=== PATIENT | male | born 1930 | race Caucasian/White ===

== ENCOUNTER → 2016-04-06 | Outpatient (CLI) | payer MEDICARE, OTHER ==
[2016-04-06 12:18] LABS: Uric Acid 6.7 mg/dL (3.5-8.5)
== END | disposition home or self-care (01) ==
LOC: LABWHC1 11:04
PROVIDERS: ATTEND Podiatrist
DX: M10.9 Gout, unspecified (principal)
CPT/HCPCS: 36415; 82565; 84450; 84460; 84520; 84550

== ENCOUNTER 2016-04-07 18:21 | Emergency (ER) | payer MEDICARE, OTHER ==
[2016-04-07] MEDS ORDERED: SODIUM CHLORIDE 0.9% 1,000 ML IV SCH (19:15)
--- NOTE | 2016-04-07 19:26 | ED ---
General Adult HPI - General Chief complaint: Weakness Stated complaint: WYATT, Malaise Time Seen by Provider: 04/07/16 18:56 Source: patient Mode of arrival: EMS Limitations: no limitations - History of Present Illness Initial comments: This is an 85-year-old male with a history of CAD, prostate cancer, and atrial fibrillation presents here department for generalized weakness, sleepiness, cough, and intermittent chest pain and abdominal pain. Per the family member at bedside who experienced the patient, he has been more somnolent today and she is not been able to get him up and moving around as much is normal. She states that he has been coughing a little bit of mucus up today. He complained of little bit of intermittent chest pain and abdominal discomfort. She states that he also vomited up some clear phlegm. He denies any abdominal pain, chest pain, shortness of breath currently. The patient does not wear any oxygen at home. He denies any diarrhea. He does admit to some bilateral lower extremity pain however this is chronic for him. No lower extremity swelling. No fevers or chills. No other complaints. - Related Data Home Medications Medication Instructions Recorded Confirmed Albuterol Inhaler [Ventolin Hfa 1 - 2 puff INHALATION RT-Q6H PRN 11/12/15 Inhaler] Albuterol Nebulized [Ventolin 2.5 mg INHALATION RT-TID PRN 11/12/15 04/07/16 Nebulized] Aspirin EC [Ecotrin Low Dose] 81 mg PO HS 11/12/15 04/07/16 Atorvastatin Calcium [Lipitor] 20 mg PO HS 11/12/15 04/07/16 Calcium/Magnesium/Zinc 1 tab PO DAILY 11/12/15 04/07/16 [Exkniun-Rijmqxkle-Rgff Tablet] Carvedilol [Coreg] 3.125 mg PO QAM 11/12/15 04/07/16 Colchicine [Colcrys] 0.6 mg PO DAILY PRN 11/12/15 04/07/16 Cyanocobalamin [Vitamin B-12] 500 mcg PO DAILY 11/12/15 04/07/16 Febuxostat [Uloric] 40 mg PO DAILY 11/12/15 04/07/16 Furosemide [Lasix] 60 mg PO DAILY 11/12/15 04/07/16 Glucosamine Sulfate 1,500 mg PO DAILY 11/12/15 04/07/16 Isosorbide Mononitrate ER [Imdur] 60 mg PO HS 11/12/15 04/07/16 Krill Oil 500 mg PO DAILY 11/12/15 04/07/16 L.acidoph,Paracasei, B.lactis 1 cap PO DAILY 11/12/15 04/07/16 [Probiotic] Lisinopril 40 mg PO QAM 11/12/15 04/07/16 Metolazone [Zaroxolyn] 2.5 mg PO SUTUTH 11/12/15 04/07/16 Multivitamins, Thera [Multivitamin] 1 tab PO DAILY 11/12/15 04/07/16 Tamsulosin HCl [Flomax] 0.4 mg PO BID 11/12/15 04/07/16 Ubidecarenone [Co Q-10] 200 mg PO HS 11/12/15 04/07/16 Bicalutamide [Casodex] 50 mg PO QAM 04/07/16 04/07/16 Cholecalciferol [Vitamin D3] 1,000 unit PO QAM 04/07/16 04/07/16 Glimepiride [Amaryl] 0.5 mg PO AC-SUPPER 04/07/16 04/07/16 Glimepiride [Amaryl] 1 mg PO QAM 04/07/16 04/07/16 Potassium Chloride ER [K-Dur 10] 10 meq PO QAM 04/07/16 04/07/16 Warfarin [Coumadin] 7.5 mg PO SUMOTUWEFRSA 04/07/16 04/07/16 Warfarin [Coumadin] 10 mg PO TH 04/07/16 04/07/16 Allergies Allergy/AdvReac Type Severity Reaction Status Date / Time Penicillins Allergy Unknown Verified 04/07/16 18:58 Review of Systems ROS Statement: Those systems with pertinent positive or pertinent negative responses have been documented in the HPI. ROS Other: All systems not noted in ROS Statement are negative. Past Medical History Additional Past Medical History / Comment(s): dementia History of Any Multi-Drug Resistant Organisms: None Reported Past Surgical History: Coronary Bypass/CABG Smoking Status: Never smoker Past Alcohol Use History: None Reported Past Drug Use History: None Reported General Exam - General Exam Comments Initial Comments: Constitutional: Awake alert Appears comfortable Head: Normocephalic atraumatic Eyes: no conjunctival injection No scleral icterus EOMI Neck: No JVD Supple Heart: Regular rate rhythm normal S1-S2 no murmurs Lungs: Clear to auscultation bilaterally No wheezing No rales Abdomen: Soft nondistended nontender Extremities: Non edematous DP pulses intact Radial pulses intact Neuro: A&Ox3 No focal neurologic deficits Psych: Appropriate mood and affect Limitations: no limitations Course Vital Signs 04/07/16 04/07/16 04/07/16 18:29 19:28 20:28 Temperature 99.0 F Pulse Rate 66 60 66 Respiratory 18 Rate Blood Pressure 165/75 166/73 158/72 O2 Sat by Pulse 96 96 95 Oximetry 04/07/16 21:58 Temperature Pulse Rate 64 Respiratory Rate Blood Pressure 160/72 O2 Sat by Pulse 94 L Oximetry EKG Findings - EKG Comments: EKG Findings:: EKG showing atrophic relation with a rate of 69. No ST segment changes. There is T-wave flattening throughout which is unchanged from previous. QTC is 325. Other intervals are normal. Occasional PVC Medical Decision Making - Medical Decision Making This is an 85-year-old male who presents emergency department for generalized fatigue, cough, intermittent abdominal pain and chest pain. Blood work was performed here including unremarkable except for mild hypokalemia which was replaced. Chest x-ray was reviewed and unchanged from previous. The patient is able to get up and ambulate around the department here he states he feels completely fine now and has no complaints and would like to go home. I told him that I would send him home with follow-up his primary doctor for further evaluation. He can return if he has worsening symptoms. All questions were answered. - Lab Data Result diagrams: 04/07/16 19:50 04/07/16 19:50 Lab Results 04/07/16 04/07/16 04/07/16 Range/Units 19:50 19:50 19:50 WBC 6.3 (3.8-10.6) k/uL RBC 4.40 (4.30-5.90) m/uL Hgb 13.1 (13.0-17.5) gm/dL Hct 37.1 L (39.0-53.0) % MCV 84.3 (80.0-100.0) fL MCH 29.7 (25.0-35.0) pg MCHC 35.2 (31.0-37.0) g/dL RDW 14.0 (11.5-15.5) % Plt Count 136 L (150-450) k/uL Neutrophils % 94 % Lymphocytes % 2 % Monocytes % 3 % Eosinophils % 0 % Basophils % 0 % Neutrophils # 6.0 (1.3-7.7) k/uL Lymphocytes # 0.1 L (1.0-4.8) k/uL Monocytes # 0.2 (0-1.0) k/uL Eosinophils # 0.0 (0-0.7) k/uL Basophils # 0.0 (0-0.2) k/uL Hyperchromasia Slight Sodium 143 (137-145) mmol/L Potassium 3.1 L (3.5-5.1) mmol/L Chloride 102 (98-107) mmol/L Carbon Dioxide 30 (22-30) mmol/L Anion Gap 11 mmol/L BUN 31 H (9-20) mg/dL Creatinine 1.29 H (0.66-1.25) mg/dL Est GFR (MDRD) Af Amer >60 (>60 ml/min/1.73 sqM) Est GFR (MDRD) Non-Af 53 (>60 ml/min/1.73 sqM) Glucose 138 H (74-99) mg/dL Plasma Lactic Acid Dorian 1.9 (0.7-2.0) mmol/L Calcium 8.5 (8.4-10.2) mg/dL Total Bilirubin 1.8 H (0.2-1.3) mg/dL AST 27 (17-59) U/L ALT 32 (21-72) U/L Alkaline Phosphatase 71 (38-126) U/L Troponin I (0.000-0.034) ng/mL NT-Pro-B Natriuret Pep pg/mL Total Protein 6.7 (6.3-8.2) g/dL Albumin 3.7 (3.5-5.0) g/dL Amylase 31 (30-110) U/L Lipase 67 (23-300) U/L Urine Color Urine Appearance (Clear) Urine pH (5.0-8.0) Ur Specific Roper (1.001-1.035) Urine Protein (Negative) Urine Glucose (UA) (Negative) Urine Ketones (Negative) Urine Blood (Negative) Urine Nitrate (Negative) Urine Bilirubin (Negative) Urine Urobilinogen (<2.0) mg/dL Ur Leukocyte Esterase (Negative) Influenza Type A RNA (Not Detectd) Influenza Type B (PCR) (Not Detectd) 04/07/16 04/07/16 04/07/16 Range/Units 19:50 19:50 19:50 WBC (3.8-10.6) k/uL RBC (4.30-5.90) m/uL Hgb (13.0-17.5) gm/dL Hct (39.0-53.0) % MCV (80.0-100.0) fL MCH (25.0-35.0) pg MCHC (31.0-37.0) g/dL RDW (11.5-15.5) % Plt Count (150-450) k/uL Neutrophils % % Lymphocytes % % Monocytes % % Eosinophils % % Basophils % % Neutrophils # (1.3-7.7) k/uL Lymphocytes # (1.0-4.8) k/uL Monocytes # (0-1.0) k/uL Eosinophils # (0-0.7) k/uL Basophils # (0-0.2) k/uL Hyperchromasia Sodium (137-145) mmol/L Potassium (3.5-5.1) mmol/L Chloride (98-107) mmol/L Carbon Dioxide (22-30) mmol/L Anion Gap mmol/L BUN (9-20) mg/dL Creatinine (0.66-1.25) mg/dL Est GFR (MDRD) Af Amer (>60 ml/min/1.73 sqM) Est GFR (MDRD) Non-Af (>60 ml/min/1.73 sqM) Glucose (74-99) mg/dL Plasma Lactic Acid Dorian (0.7-2.0) mmol/L Calcium (8.4-10.2) mg/dL Total Bilirubin (0.2-1.3) mg/dL AST (17-59) U/L ALT (21-72) U/L Alkaline Phosphatase (38-126) U/L Troponin I 0.014 (0.000-0.034) ng/mL NT-Pro-B Natriuret Pep 908 pg/mL Total Protein (6.3-8.2) g/dL Albumin (3.5-5.0) g/dL Amylase (30-110) U/L Lipase (23-300) U/L Urine Color Yellow Urine Appearance Clear (Clear) Urine pH 5.5 (5.0-8.0) Ur Specific Roper 1.018 (1.001-1.035) Urine Protein Negative (Negative) Urine Glucose (UA) Negative (Negative) Urine Ketones Negative (Negative) Urine Blood Negative (Negative) Urine Nitrate Negative (Negative) Urine Bilirubin Negative (Negative) Urine Urobilinogen <2.0 (<2.0) mg/dL Ur Leukocyte Esterase Negative (Negative) Influenza Type A RNA (Not Detectd) Influenza Type B (PCR) (Not Detectd) 04/07/16 Range/Units 19:50 WBC (3.8-10.6) k/uL RBC (4.30-5.90) m/uL Hgb (13.0-17.5) gm/dL Hct (39.0-53.0) % MCV (80.0-100.0) fL MCH (25.0-35.0) pg MCHC (31.0-37.0) g/dL RDW (11.5-15.5) % Plt Count (150-450) k/uL Neutrophils % % Lymphocytes % % Monocytes % % Eosinophils % % Basophils % % Neutrophils # (1.3-7.7) k/uL Lymphocytes # (1.0-4.8) k/uL Monocytes # (0-1.0) k/uL Eosinophils # (0-0.7) k/uL Basophils # (0-0.2) k/uL Hyperchromasia Sodium (137-145) mmol/L Potassium (3.5-5.1) mmol/L Chloride (98-107) mmol/L Carbon Dioxide (22-30) mmol/L Anion Gap mmol/L BUN (9-20) mg/dL Creatinine (0.66-1.25) mg/dL Est GFR (MDRD) Af Amer (>60 ml/min/1.73 sqM) Est GFR (MDRD) Non-Af (>60 ml/min/1.73 sqM) Glucose (74-99) mg/dL Plasma Lactic Acid Dorian (0.7-2.0) mmol/L Calcium (8.4-10.2) mg/dL Total Bilirubin (0.2-1.3) mg/dL AST (17-59) U/L ALT (21-72) U/L Alkaline Phosphatase (38-126) U/L Troponin I (0.000-0.034) ng/mL NT-Pro-B Natriuret Pep pg/mL Total Protein (6.3-8.2) g/dL Albumin (3.5-5.0) g/dL Amylase (30-110) U/L Lipase (23-300) U/L Urine Color Urine Appearance (Clear) Urine pH (5.0-8.0) Ur Specific Roper (1.001-1.035) Urine Protein (Negative) Urine Glucose (UA) (Negative) Urine Ketones (Negative) Urine Blood (Negative) Urine Nitrate (Negative) Urine Bilirubin (Negative) Urine Urobilinogen (<2.0) mg/dL Ur Leukocyte Esterase (Negative) Influenza Type A RNA Not Detected (Not Detectd) Influenza Type B (PCR) Not Detected (Not Detectd) Disposition Clinical Impression: Cough, Fatigue Disposition: HOME SELF-CARE Condition: Stable Instructions: Fatigue (ED) Referrals: Loi Mercer MD [Primary Care Provider] - 1-2 days
[2016-04-07 20:08] LABS: Appearance,Urine Clear (Clear); Basophils % (A) 0 %; Bilirubin,Urine Negative (Negative); CHCM 36.9; Eosinophils % (A) 0 %; Glucose,Urine (UA) Negative (Negative); HCT 37.1 % (39.0-53.0); HDW 3.22; HGB 13.1 gm/dL (13.0-17.5); Hyperchromasia Slight; Ketones,Urine Negative (Negative); Leukocyte Esterase,Urine Negative (Negative); Luc # (Auto) 0.03; Luc % (Auto) 0; Lymphocytes # (A) 0.1 k/uL (1.0-4.8); Lymphocytes % (A) 2 %; MCH 29.7 pg (25.0-35.0); MCHC 35.2 g/dL (31.0-37.0); MCV 84.3 fL (80.0-100.0); Mean Platelet Volume 7.9; Monocytes # (A) 0.2 k/uL (0-1.0); Monocytes % (A) 3 %; Neutrophils % (A) 94 %; Nitrite,Urine Negative (Negative); PH, Urine 5.5 (5.0-8.0); Protein,Urine Negative (Negative); Specific Gravity,Urine 1.018 (1.001-1.035); UA Billing (MACRO vs. MICRO) CHEM; Urobilinogen,Urine <2.0 mg/dL (<2.0); WBC 6.3 k/uL (3.8-10.6); WBC (Perox) 6.81
[2016-04-07 20:17] LABS: ALT 32 U/L (21-72); AST 27 U/L (17-59); Alkaline Phosphatase 71 U/L (38-126); Amylase 31 U/L (30-110); Anion Gap 11 mmol/L; Blood Urea Nitrogen 31 mg/dL (9-20); Calcium 8.5 mg/dL (8.4-10.2); Carbon Dioxide 30 mmol/L (22-30); Chloride 102 mmol/L (98-107); Glucose 138 mg/dL (74-99); Non-African American GFR(MDRD) 53 (>60 ml/min/1.73 sqM); Potassium 3.1 mmol/L (3.5-5.1); Sodium 143 mmol/L (137-145); Total Bilirubin 1.8 mg/dL (0.2-1.3); Total Protein 6.7 g/dL (6.3-8.2)
[2016-04-07] MEDS ORDERED: POTASSIUM CHLORIDE ER 20 MEQ TAB.ER PO STA (20:41)
--- NOTE | 2016-04-07 20:49 | XR ---
EXAMINATION TYPE: XR chest 2V DATE OF EXAM: 04/07/2016 8:43 PM COMPARISON: January 19, 2016 HISTORY: Dyspnea TECHNIQUE: Frontal and lateral views of the chest are obtained. FINDINGS: The lung inflation pattern is similar to the prior study. There is no pulmonary edema and there is no airlessness except within the left lung base, appearing similar to the prior study. In th is position there is again noted to be a blunted left costophrenic angle consistent with pleural effu sasha, this is similar to the prior study. No abnormal gas collections. Enlarged cardiac silhouette is similar to the prior study. Bones and sof t tissues are unremarkable. IMPRESSION: No definite acute process. Stable appearance when compared to 01/19/2016 radiographs.
--- NOTE | 2016-04-07 22:18 | XR ---
EXAMINATION TYPE: XR hand complete RT DATE OF EXAM: 04/07/2016 9:02 PM COMPARISON: NONE HISTORY: Pain. TECHNIQUE: 3 views FINDINGS: There is no fracture or malalignment. No focal bony lesions or erosions. There are multifoc al degenerative arthritis changes throughout the hand and wrist, most notably at the first [facility] articu lation. IMPRESSION: No acute process.
[2016-04-07 22:24] VITALS: BP 152/72; PULSE 61; RESP 16; TEMP 99.3
== END 2016-04-07 22:29 | disposition home or self-care (01) ==
LOC: EC 18:21
DX: R53.83 Other fatigue (principal); R05 Cough; R07.9 Chest pain, unspecified; R10.9 Unspecified abdominal pain; M79.662 Pain in left lower leg; M79.661 Pain in right lower leg; G89.29 Other chronic pain; R11.10 Vomiting, unspecified; I48.91 Unspecified atrial fibrillation; I25.10 Atherosclerotic heart disease of native coronary artery without angina pectoris; F03.90 Unspecified dementia, unspecified severity, without behavioral disturbance, psychotic disturbance, mood disturbance, and anxiety; Z85.46 Personal history of malignant neoplasm of prostate; Z79.01 Long term (current) use of anticoagulants; Z79.899 Other long term (current) drug therapy; Z79.82 Long term (current) use of aspirin; Z88.0 Allergy status to penicillin
CPT/HCPCS: 36415; 71020; 80053; 81003; 82150; 83605; 83690; 83880; 84484; 85025; 87502; 93005; 96360; 96361; 99285

== ENCOUNTER → 2016-07-04 | Outpatient (CLI) | payer MEDICARE, OTHER | LOC: LABWHC1 12:43 | PROVIDERS: ATTEND Radiology Radiation Oncology | DX: C61 Malignant neoplasm of prostate (principal) | CPT/HCPCS: 36415; 84153 ==

== ENCOUNTER → 2016-10-16 | Outpatient (CLI) | payer MEDICARE, OTHER | END | disposition home or self-care (01) | LOC: LABWHC1 10:26 | PROVIDERS: ATTEND Radiology Radiation Oncology | DX: C61 Malignant neoplasm of prostate (principal) | CPT/HCPCS: 36415; 84153 ==

== ENCOUNTER → 2017-01-22 | Outpatient (CLI) | payer MEDICARE, OTHER ==
--- NOTE | 2017-01-22 16:17 | CT ---
EXAMINATION TYPE: CT chest wo con DATE OF EXAM: 01/22/2017 COMPARISON: 02/10/2013 HISTORY: Patient compains of difficulty breathing. CT DLP: 1221.9 mGycm High-resolution noncontrast CT of the chest was performed with the patient in the prone and supine po sitions. Lung and mediastinal window settings are submitted. Chronic left basilar pleural-parenchymal opacity is unchanged. Multiple scattered pulmonary granuloma s identified. Calcified left hilar lymph nodes seen. Lung volumes are diminished. No evidence for emphysematous change. No focal consolidation or groundgl ass infiltrate. No evidence for fibrosis or bronchiectasis. There is evidence of cardiomegaly with median sternotomy changes. Atheromatous change thoracic aorta without evidence for aneurysm. Cholecystectomy clips noted. Mass density right kidney could reflect a cyst although streak artifact limits evaluation. IMPRESSION: 1. Remote granulomatous disease. 2. Chronic pleural-parenchymal density left lower lobe. 3. No evidence for pulmonary fibrosis. 4. Diminished lung volumes.
== END | disposition home or self-care (01) ==
LOC: RADCTMAIN 15:35
PROVIDERS: ATTEND Internal Medicine
DX: J98.4 Other disorders of lung (principal); R05 Cough; R06.02 Shortness of breath
CPT/HCPCS: 71250

== ENCOUNTER → 2017-03-12 | Outpatient (CLI) | payer MEDICARE, OTHER ==
[2017-03-12 15:15] LABS: Calcium 8.8 mg/dL (8.4-10.2); Potassium 3.2 mmol/L (3.5-5.1)
[2017-03-12 15:45] LABS: Prostate Specific Antigen 4.01 ng/mL (0.00-4.00)
--- NOTE | 2017-03-12 16:14 | CT ---
EXAMINATION TYPE: CT abdomen pelvis w con DATE OF EXAM: 03/12/2017 COMPARISON: 01/22/2017 HISTORY: Malignant neoplasm of prostate CT DLP: 5374 mGycm Automated exposure control for dose reduction was used. CONTRAST: CT scan of the abdomen pelvis is performed with IV Contrast, patient injected with 80 mL of Visipaque 320. FINDINGS- LUNG [id number] mass with calcification noted in the left lower lobe with a small pleural ef fusion. Calcified nodules in the right lung also noted suggestive of granuloma cardiac leads seen.. LIVER/GB-post cholecystectomy changes seen. PANCREAS- No gross abnormality is seen. SPLEEN- No gross abnormality is seen. ADRENALS- No gross abnormality is seen. KIDNEYS/BLADDER- no hydronephrosis or nephrolithiasis. Simple appearing renal cysts noted. Mild thick ening of the bladder wall. BOWEL- no bowel dilatation. Changes of diverticulosis of the colon. No CT evidence of diverticulitis .. LYMPH NODES- No greater than 1cm abdominal or pelvic lymph nodes are appreciated. OSSEOUS STRUCTURES-degenerative change of the spine. Sclerosis involving the left pelvis is nonspecif ic. Metastases not excluded. Severe multilevel degenerative disc disease and hypertrophic changes are seen involving the vertebral column. Bilateral spondylolysis L5. OTHER- aorta of normal caliber. IMPRESSION- 1. Sclerosis involving the left iliac bone suspicious for metastases given the patient's history of p rostate cancer. Finding also appears to be contacted by bone scan. 2. Postcholecystectomy changes. 3. Grade chronic granulomatous changes with small left pleural effusion and calcified pleural-based m ass are 4. simple bilateral renal cysts. 5. Correlate for mild cystitis
== END ==
LOC: RADCTMAIN 14:39
PROVIDERS: ATTEND Radiology Radiation Oncology
DX: C61 Malignant neoplasm of prostate (principal); M89.8X8 Other specified disorders of bone, other site; J84.10 Pulmonary fibrosis, unspecified; J90 Pleural effusion, not elsewhere classified; J98.4 Other disorders of lung; Z88.0 Allergy status to penicillin
CPT/HCPCS: 84153; 80048; 74177; 36415; Q9967 ×2

== ENCOUNTER 2017-04-20 08:36 | Day surgery (SDC) | payer MEDICARE, OTHER ==
[2017-04-17 09:23] VITALS: BMI 35.8
[~2017-04-20 08:36] MED LIST: ALPRAZolam 0.25 MG TAB PO PRN; ASPIRIN 325 MG TAB PO STA; NITROGLYCERIN SL TABS 0.4 MG TAB SUBLINGUAL PRN; SODIUM CHLORIDE 0.9% 1,000 ML IV SCH; SODIUM CHLORIDE 0.9% 1,000 ML in EMPTY BAG 1 BAG IV ONE
[2017-04-20] MEDS ORDERED: SODIUM CHLORIDE 0.9% 1,000 ML IV ONE (09:15)
[2017-04-20 09:17] LABS: INR 1.6 (<1.2); Prothrombin Time 14.4 sec (9.0-12.0)
[2017-04-20] MEDS ORDERED: LIDOCAINE 2% INJ 20 MG/ML (20 ML MDV) ONE (10:47)
[2017-04-20] MEDS ORDERED: VERAPAMIL 2.5 MG/ML 2 ML AMP ONE (10:48)
[2017-04-20] MEDS: LIDOCAINE 2% INJ 20 MG/ML SQ ONE ×2 (11:16→11:29)
[2017-04-20] MEDS ORDERED: HEPARIN SODIUM 1,000 UN/ML (10ML VL) ONE (11:18)
[2017-04-20] MEDS ORDERED: IODIXANOL 320 MG/ML 100 ML INTRAARTER ONE (12:01)
[2017-04-20] MEDS ORDERED: SODIUM CHLORIDE 0.9% 1,000 ML IV SCH (12:15)
--- NOTE | 2017-04-20 13:16 | CC ---
CARDIAC CATHETERIZATION REPORT DATE OF SERVICE: 04/20/2017 PROCEDURE: Left heart catheterization, coronary angiography and selective injection of bypass grafts. PERFORMED BY: Dr. Smitha Patrick. Moderate conscious sedation time was 44 minutes and patient was monitored very closely with oxygen saturation and his vital signs were monitored closely. CLINICAL INFORMATION: Mr. Vishnu Chery is an 86-year-old, obese, gentleman with a type 2 diabetes, hypertension, hyperlipidemia, mild CKD, who underwent aortocoronary bypass surgery in 2000 with a YOO to LAD, vein graft to the PDA branch of RCA and vein graft to the obtuse marginal branch of circumflex. Since then he has had multiple intervention in platinum vessels and the obtuse marginal graft. He has been having symptoms suggestive angina and also exertional shortness of breath and his shortness of breath is probably anginal equivalence. He was seen and evaluated by Pulmonology as well. Because of persistent symptoms, he was advised coronary angiography. After adequate hydration both orally and IV, he was brought in for the procedure. PROCEDURE NOTE: I initially attempted from left radial approach, but I had difficulty getting access and therefore, pressure was applied to the radial artery on the left side. I then proceeded to perform from the right femoral approach. Under local anesthesia and strict aseptic precautions, a 6-Irish introducer was placed in the right femoral artery. I used a JL5 catheter for selective coronary angiography of the left coronary artery. A Christopher catheter was used to perform a YOO injection. An AR2 catheter was used to perform selective coronary angiography of platinum RCA, the vein graft to the PDA branch of RCA and vein graft to the obtuse marginal. I used a pigtail catheter to check pressures but did not perform LV gram. This patient has chronic atrial fibrillation and an underlying permanent pacemaker for sick sinus syndrome. The sheath was taken out and manual compression used to secure hemostasis and a FemoStop was applied. CARDIAC CATHETERIZATION FINDINGS: The left ventricle end-diastolic pressure was 14 mmHg. There was no gradient across aortic valve. CORONARY ANGIOGRAPHY FINDINGS: LEFT MAIN CORONARY ARTERY: This vessel appears to have a stent in it and the left main is widely patent with good flow. There is probably about a 15% to 20% narrowing in the left main and that extends into the diagonal branch that is patent. Left main bifurcates into LAD and circumflex. LEFT ANTERIOR DESCENDING CORONARY ARTERY: This vessel is totally occluded after diagonal branch and the diagonal is patent with good flow and minor irregularities. LAD is therefore totally occluded after the diagonal branch. LEFT POSTERIOR CIRCUMFLEX CORONARY ARTERY: This vessel gives off a groove branch, a small obtuse marginal branch and then there is a total occlusion and the obtuse marginal was grafted. There are minor diffuse disease in the circumflex that is opacified. RIGHT CORONARY ARTERY: This is a dominant vessel, has about a 30% to 35% narrowing proximally and midportion. Distally it continues as a posterolateral branch and there appears to be a stent in this distal RCA. The PDA is totally occluded, but the PLV is widely patent with good flow and minor diffuse irregularities are noted. LEFT INTERNAL MAMMARY ARTERY GRAFT TO LAD: This graft is widely patent with good flow. There is no significant disease in the YOO. The opacified LAD has minor irregularities, no significant disease. It runs all the way to the apex to supply a fair amount of myocardium, but the entire LAD has minor diffuse irregularities without critical stenosis. SAPHENOUS VEIN GRAFT TO THE PDA BRANCH OF RCA: This graft is widely patent. At its origin, there is no significant disease. In the distal portion of the body of the graft, there is a 40% narrowing, but the flow is brisk and opacifies the entire PDA branch, has minor irregularities but no significant disease is noted in the PDA. The vein graft to the RCA therefore opacifies the PDA which has minor diffuse disease and the body of the graft also has minor disease, but no significant obstructive stenosis is noted. THE SAPHENOUS VEIN GRAFT TO THE OBTUSE MARGINAL BRANCH OF CIRCUMFLEX: This graft is totally occluded and is seen as a stump. LEFT VENTRICULOGRAM: This was not performed. FINAL IMPRESSION: This patient has a right dominant system. The platinum left main is probably stented, patent without disease and the diagonal is free of significant disease. The left anterior descending artery is totally occluded in the proximal portion after the diagonal branch. The circumflex has 2 small branches free of significant disease and the obtuse marginal was apparently grafted in the past. The vein graft to the obtuse marginal is occluded. Vein graft to the PDA is patent with some disease in the body of the graft of up to 40% but flow is brisk and opacified PDA has diffuse disease without critical stenosis. The YOO to left anterior descending artery is widely patent with good flow. The left anterior descending artery itself has minor diffuse disease in it. The platinum right coronary artery has no significant disease and is a dominant vessel. The PDA is occluded. PLV has minor diffuse irregularities. No significant disease. The stented segment in the RCA is widely patent. RECOMMENDATION: Findings were discussed with the patient and family. I am recommending aggressive medical therapy with risk factor modification and no intervention is necessary at this time. Patient will be discharged later on today if he remains stable. MMODL / IJN: [id number] /
--- NOTE | 2017-04-20 13:22 | LTR ---
April 20, 2017 Re: Vishnu Chery Dear Dr. Mercer: Thank you for the opportunity to participate in the care of Mr. Chery. Please find enclosed my detailed cardiac cath report for your records. His graft to the PDA branch of RCA and YOO to LAD is patent. His obtuse marginal graft was previously occluded was noted. Continued medical therapy with risk factor modification is advised and patient will be discharged later on today if he remains stable. Thank you for your referral and please call for questions. With kindest regards. Sincerely yours, Smitha Patrick MD MMGINAL / KRISTOPHERN: [id number] /
[2017-04-20 14:46] VITALS: TEMP 97.9
[2017-04-20 17:43] VITALS: BP 157/84; PULSE 54; RESP 16
== END 2017-04-20 19:05 | disposition home or self-care (01) ==
LOC: CATHCVL 08:36 → 3OBS 12:00 → CATHCVL 19:05
PROVIDERS: ATTEND Internal Medicine Interventional Cardiology
DX: I25.110 Atherosclerotic heart disease of native coronary artery with unstable angina pectoris (principal); I25.700 Atherosclerosis of coronary artery bypass graft(s), unspecified, with unstable angina pectoris; I25.82 Chronic total occlusion of coronary artery; I12.9 Hypertensive chronic kidney disease with stage 1 through stage 4 chronic kidney disease, or unspecified chronic kidney disease; E11.22 Type 2 diabetes mellitus with diabetic chronic kidney disease; N18.9 Chronic kidney disease, unspecified; E78.5 Hyperlipidemia, unspecified; I49.5 Sick sinus syndrome; Z95.0 Presence of cardiac pacemaker; Z95.5 Presence of coronary angioplasty implant and graft; Z95.1 Presence of aortocoronary bypass graft; I25.2 Old myocardial infarction; E66.9 Obesity, unspecified; Z68.35 Body mass index [BMI] 35.0-35.9, adult; I48.2 Chronic atrial fibrillation; E78.00 Pure hypercholesterolemia, unspecified; G47.30 Sleep apnea, unspecified; Z99.89 Dependence on other enabling machines and devices; Z85.46 Personal history of malignant neoplasm of prostate; Z82.49 Family history of ischemic heart disease and other diseases of the circulatory system; Z79.01 Long term (current) use of anticoagulants; Z79.84 Long term (current) use of oral hypoglycemic drugs; Z79.82 Long term (current) use of aspirin; Z79.899 Other long term (current) drug therapy; Z88.0 Allergy status to penicillin; Z88.8 Allergy status to other drugs, medicaments and biological substances
CPT/HCPCS: 93458; 82565; 84520; 85610; C1769 ×3; C1894 ×2; J2001; Q9967

== ENCOUNTER 2017-10-03 13:39 | Emergency (ER) | payer MEDICARE, OTHER ==
[2017-10-03 13:50] VITALS: RESP 18
[2017-10-03 14:17] LABS: Basophils % (A) 0 %; Eosinophils # (A) 0.1 k/uL (0-0.7); Eosinophils % (A) 2 %; HCT 32.8 % (39.0-53.0); HGB 11.3 gm/dL (13.0-17.5); Lymphocytes # (A) 0.8 k/uL (1.0-4.8); Lymphocytes % (A) 18 %; MCH 30.5 pg (25.0-35.0); MCHC 34.5 g/dL (31.0-37.0); MCV 88.4 fL (80.0-100.0); Monocytes # (A) 0.3 k/uL (0-1.0); Monocytes % (A) 5 %; Neutrophils # (A) 3.3 k/uL (1.3-7.7); Neutrophils % (A) 72 %; Platelet Count 144 k/uL (150-450); RBC 3.71 m/uL (4.30-5.90); RDW 14.1 % (11.5-15.5); WBC 4.6 k/uL (3.8-10.6)
[2017-10-03 14:21] LABS: Albumin 3.2 g/dL (3.5-5.0); Calcium 8.6 mg/dL (8.4-10.2); Magnesium 1.9 mg/dL (1.6-2.3); Potassium 3.2 mmol/L (3.5-5.1); Total Bilirubin 0.7 mg/dL (0.2-1.3); Total Protein 5.9 g/dL (6.3-8.2)
--- NOTE | 2017-10-03 14:21 | XR ---
EXAMINATION TYPE: XR chest 2V DATE OF EXAM: 10/03/2017 COMPARISON: 04/13/2016 TECHNIQUE: PA and lateral views submitted. HISTORY: Chest pain FINDINGS: There is a small left pleural effusion. Multiple calcified granuloma are noted. Cardiac device, posts urgical change and cardiomegaly are noted. Arthropathy of the shoulders. Hypertrophic and degenerative change of the spine. Postsurgical change involving the abdomen noted. IMPRESSION: 1. Cardiomegaly with small left pleural effusion. Chronic granulomatous disease noted.
[2017-10-03 14:23] LABS: INR 1.1 (<1.2); Partial Thromboplastin Time 24.1 sec (22.0-30.0); Prothrombin Time 10.6 sec (9.0-12.0)
[2017-10-03 14:44] LABS: Creatine Kinase MB 0.9 ng/mL (0.0-2.4); Troponin I 0.014 ng/mL (0.000-0.034)
--- NOTE | 2017-10-03 15:50 | ED ---
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 He currently is pain-free no falls no fevers chills nausea vomiting sweats. Does have a history of A. fib multiple other problems. He also has a history of hypokalemia he does take potassium daily. No other modifying factors at this time other than the patient does have dementia and is a somewhat poor historian MD Complaint: chest pain - Related Data Home Medications Medication Instructions Recorded Confirmed Albuterol Nebulized [Ventolin 2.5 mg INHALATION RT-QID PRN 11/12/15 10/03/17 Nebulized] Aspirin EC [Ecotrin Low Dose] 81 mg PO W/SUPPER 11/12/15 10/03/17 Atorvastatin Calcium [Lipitor] 20 mg PO W/SUPPER 11/12/15 10/03/17 Calcium/Magnesium/Zinc 1 tab PO DAILY@1200 11/12/15 10/03/17 [Qbigecd-Fxfzbernx-Bmnp Tablet] Carvedilol [Coreg] 3.125 mg PO BID 11/12/15 10/03/17 Colchicine [Colcrys] 0.6 mg PO DAILY@1200 PRN 11/12/15 10/03/17 Isosorbide Mononitrate ER [Imdur] 60 mg PO W/SUPPER 11/12/15 10/03/17 Krill Oil 500 mg PO DAILY@1200 11/12/15 10/03/17 L.acidoph,Paracasei, B.lactis 1 cap PO DAILY@1200 11/12/15 10/03/17 [Probiotic] Lisinopril 20 mg PO QAM 11/12/15 10/03/17 Metolazone [Zaroxolyn] 2.5 mg PO SUTUTH 11/12/15 10/03/17 Multivitamins, Thera [Multivitamin 1 tab PO DAILY@1200 11/12/15 10/03/17 (formulary)] Tamsulosin HCl [Flomax] 0.4 mg PO BID 11/12/15 10/03/17 Cholecalciferol [Vitamin D3] 2,000 unit PO QAM 04/07/16 10/03/17 Potassium Chloride ER [K-Dur 10] 20 meq PO DAILY@1200 04/07/16 10/03/17 Cebria 1 tab PO DAILY 04/17/17 10/03/17 Cranberry Fruit Extract [Cranberry] 500 mg PO DAILY 04/17/17 10/03/17 Cyanocobalamin (Vitamin B-12) 5,000 mcg PO DAILY@1200 04/17/17 10/03/17 [Vitamin B12] Cyanocobalamin [Vitamin B-12 1,000 mcg SQ Q30D 04/17/17 10/03/17 Injection] Febuxostat [Uloric] 40 mg PO DAILY@1200 04/17/17 10/03/17 Furosemide [Lasix] 40 mg PO DAILY 04/17/17 10/03/17 Nitroglycerin Sl Tabs [Nitrostat] 0.4 mg SUBLINGUAL Q5M PRN 04/17/17 10/03/17 Rivastigmine [Exelon 13.3MG/24Hr 1 patch TRANSDERM DAILY 04/17/17 10/03/17 Patch] Apixaban [Eliquis] 2.5 mg PO BID 10/03/17 10/03/17 Budesonide [Pulmicort] 0.5 mg PO RT-BID 10/03/17 10/03/17 Enzalutamide [Xtandi] 160 mg PO DAILY@119910/03/17 10/03/17 Previous Rx's Medication Instructions Recorded Glimepiride [Amaryl] 0.5 mg PO AC-BRKFST #0 04/15/16 Allergies Allergy/AdvReac Type Severity Reaction Status Date / Time Penicillins Allergy Unknown Verified 04/20/17 08:55 Review of Systems ROS Statement: Those systems with pertinent positive or pertinent negative responses have been documented in the HPI. ROS Other: All systems not noted in ROS Statement are negative. EKG Findings - EKG Results: EKG: interpreted by [facility] (Atrial fibrillation rate 76 QRS 94 QT since QTC of 442 /497 nonspecific T-wave configuration prolonged QT occasional PVCs) 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, gout, SOB, dementia, frequent urination, one pressures sores on his left "bottom", History of Any Multi-Drug Resistant Organisms: None Reported Past Surgical History: Back Surgery, Cholecystectomy, Coronary Bypass/CABG, Heart Catheterization With Stent, Pacemaker Additional Past Surgical History / Comment(s): 13 cardiac stents, esophageal dilatation Past Anesthesia/Blood Transfusion Reactions: No Reported Reaction Date of Last Stent Placement:: unknown Type of Cardiac Device: Permanent Pacemaker Device Placement Date:: 10/03/16 Past Psychological History: Anxiety Smoking Status: Never smoker Past Alcohol Use History: Rare Past Drug Use History: None Reported - Past Family History Daughter(s) Family Medical History: Diabetes Mellitus Son(s) Family Medical History: No Reported History Mother Family Medical History: No Reported History General Exam - General Exam Comments Initial Comments: This is a well-developed pleasant male who is awake and alert Limitations: altered mental status, physical limitation General appearance: alert, in no apparent distress Head exam: Present: atraumatic, normocephalic, normal inspection Eye exam: Present: normal appearance, PERRL, EOMI. Absent: scleral icterus, conjunctival injection, periorbital swelling ENT exam: Present: normal exam, mucous membranes moist Neck exam: Present: normal inspection. Absent: tenderness, meningismus, lymphadenopathy Respiratory exam: Present: normal lung sounds bilaterally. Absent: respiratory distress, wheezes, rales, rhonchi, stridor Cardiovascular Exam: Present: irregular rhythm. Absent: systolic murmur, diastolic murmur, rubs, gallop, clicks GI/Abdominal exam: Present: soft, normal bowel sounds. Absent: distended, tenderness, guarding, rebound, rigid Extremities exam: Present: full ROM, normal capillary refill, other (Patient is ever brace on the left lower extremity). Absent: tenderness, pedal edema, joint swelling, calf tenderness Back exam: Present: normal inspection Neurological exam: Present: alert, oriented X3, CN II-XII intact Psychiatric exam: Present: normal affect, normal mood Skin exam: Present: warm, dry, intact, normal color. Absent: rash Course Vital Signs 10/03/17 10/03/17 13:42 13:57 Temperature 97.2 F L Pulse Rate 64 62 Respiratory 18 18 Rate Blood Pressure 172/73 O2 Sat by Pulse 98 98 Oximetry Chest Pain MDM - MDM I did review the imaging and report there is a slight wall pleural fluid no other abnormalities. I did reevaluate the patient has no further symptoms. I did discuss the case with several family members over there patient does have a history of hypokalemia and does take 20 mEq per day patient will be discharge instructions increase it to twice a day for a week and follow-up with his doctor return when necessary Disposition Clinical Impression: Atypical chest pain, Hypokalemia, Chronic atrial fibrillation, Renal insufficiency Disposition: HOME SELF-CARE Condition: Good Instructions: Chest Pain (ED), Hypokalemia (ED) Additional Instructions: Double up on potassium dosing for 1 week and follow-up with her doctor for a recheck Is patient prescribed a controlled substance at d/c from ED?: No Referrals: Loi Mercer MD [Primary Care Provider] - 1-2 days
[2017-10-03 16:14] VITALS: BP 168/88; PULSE 70; TEMP 98
== END 2017-10-03 16:12 | disposition home or self-care (01) ==
LOC: EC 13:39
DX: I48.2 Chronic atrial fibrillation (principal); N28.9 Disorder of kidney and ureter, unspecified; E87.6 Hypokalemia; I25.10 Atherosclerotic heart disease of native coronary artery without angina pectoris; I50.9 Heart failure, unspecified; E11.9 Type 2 diabetes mellitus without complications; M19.90 Unspecified osteoarthritis, unspecified site; G47.30 Sleep apnea, unspecified; M10.9 Gout, unspecified; F41.9 Anxiety disorder, unspecified; Z95.1 Presence of aortocoronary bypass graft; Z99.89 Dependence on other enabling machines and devices; Z85.46 Personal history of malignant neoplasm of prostate; Z90.49 Acquired absence of other specified parts of digestive tract; Z95.5 Presence of coronary angioplasty implant and graft; Z95.0 Presence of cardiac pacemaker; Z98.890 Other specified postprocedural states; Z79.01 Long term (current) use of anticoagulants; Z79.52 Long term (current) use of systemic steroids; Z79.899 Other long term (current) drug therapy; Z88.0 Allergy status to penicillin
CPT/HCPCS: 36415; 71046; 80053; 82550; 82553; 83735; 84484; 85025; 85610; 85730; 93005; 99285

== ENCOUNTER 2017-11-07 12:45 | Emergency (ER) | payer MEDICARE, OTHER ==
--- NOTE | 2017-11-07 13:17 | XR ---
EXAMINATION TYPE: XR chest 2V DATE OF EXAM: 11/07/2017 COMPARISON: 10/03/2012 HISTORY: 87-year-old male difficulty in breathing, shortness of breath TECHNIQUE: AP and lateral views FINDINGS: Heart mildly enlarged. Median sternotomy wires are present with post-CABG changes. Right anterior david st wall pacemaker generator with right ventricular lead. There is a small left pleural effusion with adjacent left basilar opacity. This is increased from 10/03/2017. IMPRESSION: Mild cardiomegaly with small left pleural effusion with adjacent atelectasis and/or consolidation, in creased from 10/03/2017.
[2017-11-07 13:18] LABS: Basophils % (A) 0 %; Eosinophils # (A) 0.1 k/uL (0-0.7); Eosinophils % (A) 2 %; HCT 35.2 % (39.0-53.0); HGB 11.8 gm/dL (13.0-17.5); Lymphocytes # (A) 0.7 k/uL (1.0-4.8); Lymphocytes % (A) 13 %; MCH 30.2 pg (25.0-35.0); MCHC 33.4 g/dL (31.0-37.0); MCV 90.4 fL (80.0-100.0); Mean Platelet Volume 6.8; Monocytes # (A) 0.3 k/uL (0-1.0); Monocytes % (A) 6 %; Neutrophils # (A) 3.7 k/uL (1.3-7.7); Neutrophils % (A) 77 %; Platelet Count 162 k/uL (150-450); WBC 4.8 k/uL (3.8-10.6)
[2017-11-07 13:25] LABS: Appearance,Urine Clear (Clear); Bilirubin,Urine Negative (Negative); Blood,Urine Negative (Negative); Color,Urine Light Yellow; Glucose,Urine (UA) Negative (Negative); Ketones,Urine Negative (Negative); Leukocyte Esterase,Urine Negative (Negative); Nitrite,Urine Negative (Negative); PH, Urine 6.5 (5.0-8.0); Protein,Urine Negative (Negative); Specific Gravity,Urine 1.008 (1.001-1.035); Urobilinogen,Urine <2.0 mg/dL (<2.0)
[2017-11-07 13:28] LABS: Albumin 3.3 g/dL (3.5-5.0); Calcium 8.7 mg/dL (8.4-10.2); INR 1.1 (<1.2); Magnesium 1.6 mg/dL (1.6-2.3); Total Protein 6.2 g/dL (6.3-8.2)
[2017-11-07] MEDS ORDERED: MAGNESIUM SULFATE-D5W PMX 1 GM in DEXTROSE/WATER 1 100ML.BAG IVPB ONE (13:32)
[2017-11-07] MEDS ORDERED: SODIUM CHLORIDE 0.9% 500 ML IV STA (13:33)
[2017-11-07] MEDS ORDERED: POTASSIUM CHLORIDE ER 20 MEQ TAB.ER PO STA (13:33)
--- NOTE | 2017-11-07 13:43 | ED ---
General Adult HPI - General Chief complaint: Weakness Stated complaint: chest pain Time Seen by Provider: 11/07/17 12:45 Source: patient, family, EMS, RN notes reviewed Mode of arrival: EMS Limitations: no limitations - History of Present Illness Initial comments: This is a 87-year-old male was brought in by EMS for evaluation for shortness of breath. He has not been feeling well for about a week. Per paramedics he was found to have shortness breath PVCs and bradycardia. No chest pain reported no fevers chills nausea vomiting sweats or other symptoms. Apparently he recently did have a change in his oral medication. Which family is concerned may have caused all this. Patient has dementia and is a poor historian. No other modifying factors at this time - Related Data Home Medications Medication Instructions Recorded Confirmed Albuterol Nebulized [Ventolin 2.5 mg INHALATION RT-QID PRN 11/12/15 11/07/17 Nebulized] Atorvastatin Calcium [Lipitor] 20 mg PO W/SUPPER 11/12/15 11/07/17 Calcium/Magnesium/Zinc 1 tab PO DAILY@1200 11/12/15 11/07/17 [Pectvnl-Flmdrpvsj-Ajej Tablet] Carvedilol [Coreg] 6.25 mg PO BID 11/12/15 11/07/17 Colchicine [Colcrys] 0.6 mg PO DAILY@1200 PRN 11/12/15 11/07/17 Isosorbide Mononitrate ER [Imdur] 60 mg PO W/SUPPER 11/12/15 11/07/17 Krill Oil 500 mg PO DAILY@1200 11/12/15 11/07/17 L.acidoph,Paracasei, B.lactis 1 cap PO DAILY@1200 11/12/15 11/07/17 [Probiotic] Metolazone [Zaroxolyn] 2.5 mg PO SUTUTH 11/12/15 11/07/17 Multivitamins, Thera [Multivitamin 1 tab PO DAILY@1200 11/12/15 11/07/17 (formulary)] Tamsulosin HCl [Flomax] 0.4 mg PO BID 11/12/15 11/07/17 Cholecalciferol [Vitamin D3] 2,000 unit PO QAM 04/07/16 11/07/17 Cranberry Fruit Extract [Cranberry] 500 mg PO DAILY 04/17/17 11/07/17 Cyanocobalamin (Vitamin B-12) 5,000 mcg PO DAILY@1200 04/17/17 11/07/17 [Vitamin B12] Febuxostat [Uloric] 40 mg PO DAILY@1200 04/17/17 11/07/17 Furosemide [Lasix] 40 mg PO DAILY 04/17/17 11/07/17 Nitroglycerin Sl Tabs [Nitrostat] 0.4 mg SUBLINGUAL Q5M PRN 04/17/17 10/03/17 Rivastigmine [Exelon 13.3MG/24Hr 1 patch TRANSDERM DAILY 04/17/17 11/07/17 Patch] Apixaban [Eliquis] 5 mg PO BID 10/03/17 11/07/17 Budesonide [Pulmicort] 0.5 mg PO RT-BID 10/03/17 11/07/17 Enzalutamide [Xtandi] 160 mg PO DAILY@1200 10/03/17 11/07/17 Albuterol Nebulized [Ventolin 2.5 mg INHALATION RT-Q4H PRN 11/07/17 11/07/17 Nebulized] Docusate [Colace] 100 mg PO DAILY PRN 11/07/17 11/07/17 Lisinopril [Zestril] 20 mg PO DAILY 11/07/17 11/07/17 Potassium Chloride ER [K-Dur 20] 20 meq PO DAILY@1200 11/07/17 11/07/17 Ubidecarenone [Co Q-10] 100 mg PO W/SUPPER 11/07/17 11/07/17 guaiFENesin [Mucinex] 600 mg PO Q12H PRN 11/07/17 11/07/17 Previous Rx's Medication Instructions Recorded Glimepiride [Amaryl] 0.5 mg PO AC-BRKFST #0 04/15/16 predniSONE 20 mg PO BID #10 tab 11/07/17 Allergies Allergy/AdvReac Type Severity Reaction Status Date / Time Penicillins Allergy Unknown Verified 11/07/17 13:12 Review of Systems ROS Statement: Those systems with pertinent positive or pertinent negative responses have been documented in the HPI. ROS Other: All systems not noted in ROS Statement are negative. 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, gout, SOB, dementia, frequent urination, one pressures sores on his left "bottom", History of Any Multi-Drug Resistant Organisms: None Reported Past Surgical History: Back Surgery, Cholecystectomy, Coronary Bypass/CABG, Heart Catheterization With Stent, Pacemaker Additional Past Surgical History / Comment(s): 13 cardiac stents, esophageal dilatation Past Anesthesia/Blood Transfusion Reactions: No Reported Reaction Date of Last Stent Placement:: unknown Type of Cardiac Device: Permanent Pacemaker Device Placement Date:: 10/03/16 Past Psychological History: Anxiety Smoking Status: Never smoker Past Alcohol Use History: Rare Past Drug Use History: None Reported - Past Family History Daughter(s) Family Medical History: Diabetes Mellitus Son(s) Family Medical History: No Reported History Mother Family Medical History: No Reported History General Exam - General Exam Comments Initial Comments: This is a well-developed well-nourished awake alert pleasant gentleman. Limitations: no limitations General appearance: alert Head exam: Present: atraumatic, normocephalic, normal inspection Eye exam: Present: normal appearance, PERRL, EOMI. Absent: scleral icterus, conjunctival injection, periorbital swelling ENT exam: Present: normal exam, mucous membranes moist Neck exam: Present: normal inspection. Absent: tenderness, meningismus, lymphadenopathy Respiratory exam: Present: normal lung sounds bilaterally, rales (Slight right basilar rales), decreased breath sounds. Absent: respiratory distress, wheezes , rhonchi, stridor Cardiovascular Exam: Present: regular rate, normal rhythm, normal heart sounds. Absent: systolic murmur, diastolic murmur, rubs, gallop, clicks GI/Abdominal exam: Present: soft, normal bowel sounds. Absent: distended, tenderness, guarding, rebound, rigid Extremities exam: Present: normal inspection, full ROM, normal capillary refill. Absent: tenderness, pedal edema, joint swelling, calf tenderness Back exam: Present: normal inspection Neurological exam: Present: alert, altered, CN II-XII intact Psychiatric exam: Present: normal affect, normal mood Skin exam: Present: warm, dry, intact, normal color. Absent: rash Course Vital Signs 11/07/17 11/07/17 11/07/17 12:48 14:00 15:00 Temperature 99 F Pulse Rate 60 60 60 Respiratory 20 20 18 Rate Blood Pressure 139/63 157/71 144/67 O2 Sat by Pulse 96 97 97 Oximetry 11/07/17 16:00 Temperature Pulse Rate 58 L Respiratory 20 Rate Blood Pressure 136/70 O2 Sat by Pulse 98 Oximetry Medical Decision Making - Medical Decision Making Patient is showing improved I did have a long discussion with patient family the patient's pacemaker was interrogated I did discuss this with the insurance claims representative from [facility]. Patient does have an underlying atrial fibrillation with a single chamber pacemaker. He does appear to be functioning well. 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 Also return when necessary - Lab Data Result diagrams: 11/07/17 12:54 11/07/17 12:54 Lab Results 11/07/17 11/07/17 11/07/17 Range/Units 12:54 12:54 12:54 WBC 4.8 (3.8-10.6) k/uL RBC 3.90 L (4.30-5.90) m/uL Hgb 11.8 L (13.0-17.5) gm/dL Hct 35.2 L (39.0-53.0) % MCV 90.4 (80.0-100.0) fL MCH 30.2 (25.0-35.0) pg MCHC 33.4 (31.0-37.0) g/dL RDW 14.0 (11.5-15.5) % Plt Count 162 (150-450) k/uL Neutrophils % 77 % Lymphocytes % 13 % Monocytes % 6 % Eosinophils % 2 % Basophils % 0 % Neutrophils # 3.7 (1.3-7.7) k/uL Lymphocytes # 0.7 L (1.0-4.8) k/uL Monocytes # 0.3 (0-1.0) k/uL Eosinophils # 0.1 (0-0.7) k/uL Basophils # 0.0 (0-0.2) k/uL PT (9.0-12.0) sec INR (<1.2) APTT (22.0-30.0) sec Sodium 141 (137-145) mmol/L Potassium 3.0 L (3.5-5.1) mmol/L Chloride 102 (98-107) mmol/L Carbon Dioxide 31 H (22-30) mmol/L Anion Gap 8 mmol/L BUN 29 H (9-20) mg/dL Creatinine 1.18 (0.66-1.25) mg/dL Est GFR (CKD-EPI)AfAm 65 (>60 ml/min/1.73 sqM) Est GFR (CKD-EPI)NonAf 56 (>60 ml/min/1.73 sqM) Glucose 112 H (74-99) mg/dL Plasma Lactic Acid Dorian (0.7-2.0) mmol/L Calcium 8.7 (8.4-10.2) mg/dL Magnesium 1.6 (1.6-2.3) mg/dL Total Bilirubin 1.0 (0.2-1.3) mg/dL AST 26 (17-59) U/L ALT 19 L (21-72) U/L Alkaline Phosphatase 68 (38-126) U/L Total Creatine Kinase 39 L (55-170) U/L CK-MB (CK-2) 0.5 (0.0-2.4) ng/mL CK-MB (CK-2) Rel Index 1.3 Troponin I 0.015 (0.000-0.034) ng/mL NT-Pro-B Natriuret Pep pg/mL Total Protein 6.2 L (6.3-8.2) g/dL Albumin 3.3 L (3.5-5.0) g/dL Urine Color Urine Appearance (Clear) Urine pH (5.0-8.0) Ur Specific [place] (1.001-1.035) Urine Protein (Negative) Urine Glucose (UA) (Negative) Urine Ketones (Negative) Urine Blood (Negative) Urine Nitrite (Negative) Urine Bilirubin (Negative) Urine Urobilinogen (<2.0) mg/dL Ur Leukocyte Esterase (Negative) 11/07/17 11/07/17 11/07/17 Range/Units 12:54 12:54 13:18 WBC (3.8-10.6) k/uL RBC (4.30-5.90) m/uL Hgb (13.0-17.5) gm/dL Hct (39.0-53.0) % MCV (80.0-100.0) fL MCH (25.0-35.0) pg MCHC (31.0-37.0) g/dL RDW (11.5-15.5) % Plt Count (150-450) k/uL Neutrophils % % Lymphocytes % % Monocytes % % Eosinophils % % Basophils % % Neutrophils # (1.3-7.7) k/uL Lymphocytes # (1.0-4.8) k/uL Monocytes # (0-1.0) k/uL Eosinophils # (0-0.7) k/uL Basophils # (0-0.2) k/uL PT 11.0 (9.0-12.0) sec INR 1.1 (<1.2) APTT 25.0 (22.0-30.0) sec Sodium (137-145) mmol/L Potassium (3.5-5.1) mmol/L Chloride (98-107) mmol/L Carbon Dioxide (22-30) mmol/L Anion Gap mmol/L BUN (9-20) mg/dL Creatinine (0.66-1.25) mg/dL Est GFR (CKD-EPI)AfAm (>60 ml/min/1.73 sqM) Est GFR (CKD-EPI)NonAf (>60 ml/min/1.73 sqM) Glucose (74-99) mg/dL Plasma Lactic Acid Dorian (0.7-2.0) mmol/L Calcium (8.4-10.2) mg/dL Magnesium (1.6-2.3) mg/dL Total Bilirubin (0.2-1.3) mg/dL AST (17-59) U/L ALT (21-72) U/L Alkaline Phosphatase (38-126) U/L Total Creatine Kinase (55-170) U/L CK-MB (CK-2) (0.0-2.4) ng/mL CK-MB (CK-2) Rel Index Troponin I (0.000-0.034) ng/mL NT-Pro-B Natriuret Pep 1150 pg/mL Total Protein (6.3-8.2) g/dL Albumin (3.5-5.0) g/dL Urine Color Light Yellow Urine Appearance Clear (Clear) Urine pH 6.5 (5.0-8.0) Ur Specific [place] 1.008 (1.001-1.035) Urine Protein Negative (Negative) Urine Glucose (UA) Negative (Negative) Urine Ketones Negative (Negative) Urine Blood Negative (Negative) Urine Nitrite Negative (Negative) Urine Bilirubin Negative (Negative) Urine Urobilinogen <2.0 (<2.0) mg/dL Ur Leukocyte Esterase Negative (Negative) 11/07/17 Range/Units 13:40 WBC (3.8-10.6) k/uL RBC (4.30-5.90) m/uL Hgb (13.0-17.5) gm/dL Hct (39.0-53.0) % MCV (80.0-100.0) fL MCH (25.0-35.0) pg MCHC (31.0-37.0) g/dL RDW (11.5-15.5) % Plt Count (150-450) k/uL Neutrophils % % Lymphocytes % % Monocytes % % Eosinophils % % Basophils % % Neutrophils # (1.3-7.7) k/uL Lymphocytes # (1.0-4.8) k/uL Monocytes # (0-1.0) k/uL Eosinophils # (0-0.7) k/uL Basophils # (0-0.2) k/uL PT (9.0-12.0) sec INR (<1.2) APTT (22.0-30.0) sec Sodium (137-145) mmol/L Potassium (3.5-5.1) mmol/L Chloride (98-107) mmol/L Carbon Dioxide (22-30) mmol/L Anion Gap mmol/L BUN (9-20) mg/dL Creatinine (0.66-1.25) mg/dL Est GFR (CKD-EPI)AfAm (>60 ml/min/1.73 sqM) Est GFR (CKD-EPI)NonAf (>60 ml/min/1.73 sqM) Glucose (74-99) mg/dL Plasma Lactic Acid Dorian 1.1 (0.7-2.0) mmol/L Calcium (8.4-10.2) mg/dL Magnesium (1.6-2.3) mg/dL Total Bilirubin (0.2-1.3) mg/dL AST (17-59) U/L ALT (21-72) U/L Alkaline Phosphatase (38-126) U/L Total Creatine Kinase (55-170) U/L CK-MB (CK-2) (0.0-2.4) ng/mL CK-MB (CK-2) Rel Index Troponin I (0.000-0.034) ng/mL NT-Pro-B Natriuret Pep pg/mL Total Protein (6.3-8.2) g/dL Albumin (3.5-5.0) g/dL Urine Color Urine Appearance (Clear) Urine pH (5.0-8.0) Ur Specific [place] (1.001-1.035) Urine Protein (Negative) Urine Glucose (UA) (Negative) Urine Ketones (Negative) Urine Blood (Negative) Urine Nitrite (Negative) Urine Bilirubin (Negative) Urine Urobilinogen (<2.0) mg/dL Ur Leukocyte Esterase (Negative) - Radiology Data Radiology results: report reviewed (Imaging was reviewed no definite acute findings.), image reviewed Disposition Clinical Impression: COPD (chronic obstructive pulmonary disease), Pacemaker, Hypokalemia Disposition: HOME SELF-CARE Condition: Good Instructions: COPD (Chronic Obstructive Pulmonary Disease) (ED), Pacemaker (DC) , Hypokalemia (ED) Prescriptions: predniSONE 20 mg PO BID #10 tab Is patient prescribed a controlled substance at d/c from ED?: No Referrals: Loi Mercer MD [Primary Care Provider] - 1-2 days
[2017-11-07 13:50] LABS: Creatine Kinase MB 0.5 ng/mL (0.0-2.4); Troponin I 0.015 ng/mL (0.000-0.034)
[2017-11-07 18:12] VITALS: BP 132/77; PULSE 60; RESP 18; TEMP 98.2
== END 2017-11-07 18:13 | disposition home or self-care (01) ==
LOC: EC 12:45
DX: J44.9 Chronic obstructive pulmonary disease, unspecified (principal); E87.6 Hypokalemia; Z95.0 Presence of cardiac pacemaker; F03.90 Unspecified dementia, unspecified severity, without behavioral disturbance, psychotic disturbance, mood disturbance, and anxiety; I48.91 Unspecified atrial fibrillation; Z88.0 Allergy status to penicillin; I25.10 Atherosclerotic heart disease of native coronary artery without angina pectoris; I50.9 Heart failure, unspecified; M10.9 Gout, unspecified; G47.30 Sleep apnea, unspecified; Z79.01 Long term (current) use of anticoagulants; Z79.52 Long term (current) use of systemic steroids; Z79.899 Other long term (current) drug therapy; Z85.46 Personal history of malignant neoplasm of prostate; Z92.3 Personal history of irradiation; Z87.448 Personal history of other diseases of urinary system; Z99.89 Dependence on other enabling machines and devices
CPT/HCPCS: 99285; 96365; 36415; 93005; 83880; 80053; 82550; 82553; 83605; 83735; 84484; 85025; 85610; 85730; 81003; 71046; J3475

== ENCOUNTER → 2017-11-15 | Outpatient (CLI) | payer MEDICARE, OTHER ==
--- NOTE | 2017-11-15 14:40 | CT ---
EXAMINATION TYPE: CT angio chest DATE OF EXAM: 11/15/2017 COMPARISON: HRCT 01/22/2017 and CTA 02/10/2013 HISTORY: 87-year-old male Shortness of breath TECHNIQUE: Contiguous axial scanning of the chest performed with IV Contrast, patient injected with 8 0 mL of Isovue 370. Coronal/sagittal MIP reconstructions performed. CT DLP: 704 mGycm Automated exposure control for dose reduction was used. FINDINGS: Median sternotomy wires are present with post-CABG clips in the mediastinum. Heart upper limits of no rmal in size without pericardial effusion. Aortic root mildly aneurysmal to 4.0 cm and the ascending aorta is ectatic at 3.8 cm. Conventional ar ch vessel branching anatomy with mild atherosclerotic calcifications. 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 Large caliber to the main right and left pulmonary arteries to 0.8 and 3.0 cm, respectively suggestin g underlying pulmonary arterial hypertension. Satisfactory opacification of the pulmonary arterial sy stem. There is respiratory motion especially in the left lower lobe limiting assessment of the segmen ramy and more distal arterial branches of the basilar left lower lobe. Numerous calcified pulmonary nodules. No thoracic lymphadenopathy. Chronic pleural parenchymal thickening at the posterior left lower lobe with volume loss and a trace left effusion with thickened pleura. Findings suspected to represent combination of scarring and roun d atelectasis. Mild diffuse bronchial wall thickening. No consolidation or pleural effusion. Visualized upper abdomen shows cholecystectomy clips and a hypodense lesion anterior left renal upper pole measuring 3.7 cm suggestive of a cyst. Mild to moderate stool burden. Bones: Bridging anterior endplate spondylosis throughout, suggestion of bridging syndesmophytes and o ssification along the supraspinous ligament, possible ankylosing spondylitis or dish. IMPRESSION: 1. CHRONIC PLEURAL PARENCHYMAL OPACITY AT THE POSTERIOR LEFT BASE SUGGESTING COMBINATION OF SCARRING AND ROUNDED ATELECTASIS. 2. PULMONARY ARTERIAL HYPERTENSION. RESPIRATORY MOTION LIMITS THE SEGMENTAL AND MORE DISTAL BRANCHES OF THE LEFT LOWER LOBE. NO EVIDENCE FOR PULMONARY EMBOLUS ELSEWHERE IN THE LUNGS. 3. 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 4. PRIOR GRANULOMATOUS DISEASE. 5. CORRELATE FOR DISH VERSUS ANKYLOSING SPONDYLITIS.
== END | disposition home or self-care (01) ==
LOC: RADCTMAIN 11:31
PROVIDERS: ATTEND Internal Medicine Geriatric Medicine
DX: R91.8 Other nonspecific abnormal finding of lung field (principal); I27.21 Secondary pulmonary arterial hypertension; Q25.43 Congenital aneurysm of aorta
CPT/HCPCS: 71275; Q9967

== ENCOUNTER 2018-03-05 22:30 | Inpatient (IN) | payer MEDICARE, OTHER ==
[2018-03-05] MEDS ORDERED: IPRATROPIUM-ALBUTEROL 3 ML NEB INHALATION STA (23:42)
[2018-03-05 23:54] LABS: Anisocytosis Slight; Basophils % (A) 0 %; Eosinophils # (A) 0.1 k/uL (0-0.7); Eosinophils % (A) 2 %; HCT 30.8 % (39.0-53.0); HGB 9.7 gm/dL (13.0-17.5); Hypochromasia Slight; Lymphocytes # (A) 0.7 k/uL (1.0-4.8); Lymphocytes % (A) 14 %; MCH 26.7 pg (25.0-35.0); MCHC 31.4 g/dL (31.0-37.0); MCV 84.9 fL (80.0-100.0); Mean Platelet Volume 7.8; Monocytes # (A) 0.4 k/uL (0-1.0); Monocytes % (A) 7 %; Neutrophils # (A) 3.6 k/uL (1.3-7.7); Neutrophils % (A) 74 %; Platelet Count 190 k/uL (150-450); RBC 3.63 m/uL (4.30-5.90); RDW 16.3 % (11.5-15.5); WBC 4.9 k/uL (3.8-10.6)
[2018-03-06 00:02] LABS: Albumin 3.3 g/dL (3.5-5.0); Calcium 8.9 mg/dL (8.4-10.2); Magnesium 1.8 mg/dL (1.6-2.3); Potassium 3.8 mmol/L (3.5-5.1); Total Bilirubin 0.9 mg/dL (0.2-1.3); Total Protein 6.2 g/dL (6.3-8.2)
[2018-03-06 00:06] LABS: INR 1.1 (<1.2); Prothrombin Time 11.3 sec (9.0-12.0)
[2018-03-06 00:07] LABS: Partial Thromboplastin Time 25.6 sec (22.0-30.0)
--- NOTE | 2018-03-06 00:07 | XR ---
EXAMINATION TYPE: XR chest 2V DATE OF EXAM: 03/06/2018 COMPARISON: 11/07/2017 HISTORY: Difficulty breathing TECHNIQUE: Frontal and lateral views of the chest are obtained. FINDINGS: Heart is enlarged. There is blunting of right costophrenic angle. There is mild pulmonary congestion. There is right axillary pacemaker with the lead tips in the right ventricle. There are st ernal wires. There is mild infiltrate or atelectasis at the right lung base. IMPRESSION: Mild heart failure with small right pleural effusion and basilar mild infiltrate and ate lectasis is new compared to old exam.
[2018-03-06] MEDS ORDERED: PNEUMONIA PROTOCOL UTILIZED 1 EACH MISC PO PRN (00:20)
[2018-03-06] MEDS ORDERED: LEVOFLOXACIN 750MG-D5W PMX 750 MG in DEXTROSE/WATER 1 150ML.BAG IVPB STA (00:20)
[2018-03-06] MEDS ORDERED: CEFEPIME 2 GM in SODIUM CHLORIDE 0.9% 50 ML IVPB STA (00:25)
--- NOTE | 2018-03-06 00:28 | ED ---
SOB HPI - General Chief Complaint: Shortness of Breath Stated Complaint: SOB Time Seen by Provider: 03/05/18 22:57 Source: EMS, RN notes reviewed, old records reviewed Mode of arrival: EMS Limitations: no limitations - History of Present Illness Initial Comments: This is an 87-year-old male the ER for evaluation. Patient for persistent shortness of breath. No fevers no cough congestion no chest pain. Patient symptoms are progressively worsening. He has no improvement at home he was sent in for low pulse ox by home nurse. Patient has mainly exertional dyspnea when he rests his symptoms are improved MD Complaint: shortness of breath -: days(s) Radiation: other (No pain) Severity: moderate, severe (Severe with exertion) Severity scale (1-10): 6 Improves With: oxygen Worsens With: exertion Known History Of: congestive heart failure, recurrent pneumonia Context: recent URI Associated Symptoms: other (Lower extremity edema) Treatments Prior to Arrival: none - Related Data Home Medications Medication Instructions Recorded Confirmed Albuterol Nebulized [Ventolin 2.5 mg INHALATION RT-QID PRN 11/12/15 03/05/18 Nebulized] Atorvastatin Calcium [Lipitor] 20 mg PO W/SUPPER 11/12/15 03/05/18 Calcium/Magnesium/Zinc 1 tab PO DAILY@1200 11/12/15 03/05/18 [Eftwquo-Tkmsefxjl-Adre Tablet] Carvedilol [Coreg] 6.25 mg PO BID 11/12/15 03/05/18 Colchicine [Colcrys] 0.6 mg PO DAILY@1200 PRN 11/12/15 03/05/18 Isosorbide Mononitrate ER [Imdur] 60 mg PO W/SUPPER 11/12/15 03/05/18 Krill Oil 500 mg PO DAILY@1200 11/12/15 03/05/18 L.acidoph,Paracasei, B.lactis 1 cap PO DAILY@1200 11/12/15 03/05/18 [Probiotic] Metolazone [Zaroxolyn] 2.5 mg PO SUTUTH 11/12/15 03/05/18 Multivitamins, Thera [Multivitamin 1 tab PO DAILY@1200 11/12/15 03/05/18 (formulary)] Tamsulosin HCl [Flomax] 0.4 mg PO BID 11/12/15 03/05/18 Cholecalciferol [Vitamin D3] 2,000 unit PO QAM 04/07/16 03/05/18 Cranberry Fruit Extract [Cranberry] 500 mg PO DAILY 04/17/17 03/05/18 Cyanocobalamin (Vitamin B-12) 5,000 mcg PO DAILY@1200 04/17/17 03/05/18 [Vitamin B12] Febuxostat [Uloric] 40 mg PO DAILY@1200 04/17/17 03/05/18 Furosemide [Lasix] 40 mg PO DAILY 04/17/17 03/05/18 Nitroglycerin Sl Tabs [Nitrostat] 0.4 mg SUBLINGUAL Q5M PRN 04/17/17 03/05/18 Rivastigmine [Exelon 13.3MG/24Hr 1 patch TRANSDERM DAILY 04/17/17 03/05/18 Patch] Apixaban [Eliquis] 5 mg PO BID 10/03/17 03/05/18 Budesonide [Pulmicort] 0.5 mg PO RT-BID 10/03/17 03/05/18 Enzalutamide [Xtandi] 160 mg PO DAILY@1200 10/03/17 03/05/18 Albuterol Nebulized [Ventolin 2.5 mg INHALATION RT-Q4H PRN 11/07/17 03/05/18 Nebulized] Docusate [Colace] 100 mg PO DAILY PRN 11/07/17 03/05/18 Lisinopril [Zestril] 10 mg PO DAILY 11/07/17 03/05/18 Potassium Chloride ER [K-Dur 20] 20 meq PO DAILY@1200 11/07/17 03/05/18 Ubidecarenone [Co Q-10] 100 mg PO W/SUPPER 11/07/17 03/05/18 guaiFENesin [Mucinex] 600 mg PO Q12H PRN 11/07/17 03/05/18 Previous Rx's Medication Instructions Recorded Glimepiride [Amaryl] 0.5 mg PO AC-BRKFST #0 04/15/16 predniSONE 20 mg PO BID #10 tab 11/07/17 Allergies Allergy/AdvReac Type Severity Reaction Status Date / Time Penicillins Allergy Unknown Verified 11/07/17 13:12 Review of Systems ROS Statement: Those systems with pertinent positive or pertinent negative responses have been documented in the HPI. ROS Other: All systems not noted in ROS Statement are negative. 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, gout, SOB, dementia, frequent urination, one pressures sores on his left "bottom", History of Any Multi-Drug Resistant Organisms: None Reported Past Surgical History: Back Surgery, Cholecystectomy, Coronary Bypass/CABG, Heart Catheterization With Stent, Pacemaker Additional Past Surgical History / Comment(s): 13 cardiac stents, esophageal dilatation Past Anesthesia/Blood Transfusion Reactions: No Reported Reaction Date of Last Stent Placement:: unknown Type of Cardiac Device: Permanent Pacemaker Device Placement Date:: 10/03/16 Past Psychological History: Anxiety Smoking Status: Never smoker Past Alcohol Use History: Rare Past Drug Use History: None Reported - Past Family History Daughter(s) Family Medical History: Diabetes Mellitus Son(s) Family Medical History: No Reported History Mother Family Medical History: No Reported History General Exam Limitations: no limitations General appearance: alert, in no apparent distress, obese Head exam: Present: atraumatic, normocephalic, normal inspection Eye exam: Present: normal appearance, PERRL, EOMI. Absent: scleral icterus, conjunctival injection, periorbital swelling ENT exam: Present: normal exam, mucous membranes moist Neck exam: Present: normal inspection. Absent: tenderness, meningismus, lymphadenopathy Respiratory exam: Present: rales, accessory muscle use, decreased breath sounds , prolonged expiratory. Absent: respiratory distress, wheezes, rhonchi, stridor Cardiovascular Exam: Present: normal rhythm, bradycardia, normal heart sounds. Absent: systolic murmur, diastolic murmur, rubs, gallop, clicks GI/Abdominal exam: Present: soft, normal bowel sounds. Absent: distended, tenderness, guarding, rebound, rigid Extremities exam: Present: normal inspection, full ROM, normal capillary refill. Absent: tenderness, pedal edema, joint swelling, calf tenderness Back exam: Present: normal inspection Neurological exam: Present: alert, oriented X3, CN II-XII intact Psychiatric exam: Present: normal affect, normal mood Skin exam: Present: warm, dry, intact, normal color. Absent: rash Course Vital Signs 03/05/18 03/05/18 03/05/18 22:38 22:40 23:00 Temperature 98.2 F Pulse Rate 57 L 67 Pulse Rate [ Pulse Oximetery ] Respiratory 22 10 L Rate Blood Pressure 152/91 152/91 Blood Pressure [Left Arm] O2 Sat by Pulse 97 97 97 Oximetry 03/05/18 03/06/18 03/06/18 23:50 00:03 00:21 Temperature 97.8 F Pulse Rate 60 Pulse Rate [ 65 Pulse Oximetery ] Respiratory 22 14 Rate Blood Pressure Blood Pressure 149/64 [Left Arm] O2 Sat by Pulse 100 Oximetry 03/06/18 03/06/18 00:32 01:00 Temperature Pulse Rate 64 78 Pulse Rate [ Pulse Oximetery ] Respiratory 18 Rate Blood Pressure 159/91 Blood Pressure [Left Arm] O2 Sat by Pulse 81 L Oximetry - Reevaluation(s) Reevaluation #1: 03/06/18 00:27 Medical record is reviewed noncontributory Medical Decision Making - Medical Decision Making 87 male the ER for evaluation positive shortness of breath increasing weakness patient has CHF and pneumonia COPD. We'll admit for diuresis and breathing treatments. - Lab Data Result diagrams: 03/05/18 23:10 03/05/18 23:10 Lab Results 03/05/18 03/05/18 03/05/18 Range/Units 23:10 23:10 23:10 WBC 4.9 (3.8-10.6) k/uL RBC 3.63 L (4.30-5.90) m/uL Hgb 9.7 L (13.0-17.5) gm/dL Hct 30.8 L (39.0-53.0) % MCV 84.9 (80.0-100.0) fL MCH 26.7 (25.0-35.0) pg MCHC 31.4 (31.0-37.0) g/dL RDW 16.3 H (11.5-15.5) % Plt Count 190 (150-450) k/uL Neutrophils % 74 % Lymphocytes % 14 % Monocytes % 7 % Eosinophils % 2 % Basophils % 0 % Neutrophils # 3.6 (1.3-7.7) k/uL Lymphocytes # 0.7 L (1.0-4.8) k/uL Monocytes # 0.4 (0-1.0) k/uL Eosinophils # 0.1 (0-0.7) k/uL Basophils # 0.0 (0-0.2) k/uL Hypochromasia Slight Anisocytosis Slight PT (9.0-12.0) sec INR (<1.2) APTT (22.0-30.0) sec Sodium 140 (137-145) mmol/L Potassium 3.8 (3.5-5.1) mmol/L Chloride 108 H (98-107) mmol/L Carbon Dioxide 25 (22-30) mmol/L Anion Gap 7 mmol/L BUN 26 H (9-20) mg/dL Creatinine 1.31 H (0.66-1.25) mg/dL Est GFR (CKD-EPI)AfAm 57 (>60 ml/min/1.73 sqM) Est GFR (CKD-EPI)NonAf 50 (>60 ml/min/1.73 sqM) Glucose 86 (74-99) mg/dL Calcium 8.9 (8.4-10.2) mg/dL Magnesium 1.8 (1.6-2.3) mg/dL Total Bilirubin 0.9 (0.2-1.3) mg/dL AST 20 (17-59) U/L ALT 21 (21-72) U/L Alkaline Phosphatase 75 (38-126) U/L Total Creatine Kinase 27 L (55-170) U/L CK-MB (CK-2) 0.7 (0.0-2.4) ng/mL CK-MB (CK-2) Rel Index 2.6 Troponin I 0.024 (0.000-0.034) ng/mL NT-Pro-B Natriuret Pep pg/mL Total Protein 6.2 L (6.3-8.2) g/dL Albumin 3.3 L (3.5-5.0) g/dL 03/05/18 03/05/18 Range/Units 23:10 23:10 WBC (3.8-10.6) k/uL RBC (4.30-5.90) m/uL Hgb (13.0-17.5) gm/dL Hct (39.0-53.0) % MCV (80.0-100.0) fL MCH (25.0-35.0) pg MCHC (31.0-37.0) g/dL RDW (11.5-15.5) % Plt Count (150-450) k/uL Neutrophils % % Lymphocytes % % Monocytes % % Eosinophils % % Basophils % % Neutrophils # (1.3-7.7) k/uL Lymphocytes # (1.0-4.8) k/uL Monocytes # (0-1.0) k/uL Eosinophils # (0-0.7) k/uL Basophils # (0-0.2) k/uL Hypochromasia Anisocytosis PT 11.3 (9.0-12.0) sec INR 1.1 (<1.2) APTT 25.6 (22.0-30.0) sec Sodium (137-145) mmol/L Potassium (3.5-5.1) mmol/L Chloride (98-107) mmol/L Carbon Dioxide (22-30) mmol/L Anion Gap mmol/L BUN (9-20) mg/dL Creatinine (0.66-1.25) mg/dL Est GFR (CKD-EPI)AfAm (>60 ml/min/1.73 sqM) Est GFR (CKD-EPI)NonAf (>60 ml/min/1.73 sqM) Glucose (74-99) mg/dL Calcium (8.4-10.2) mg/dL Magnesium (1.6-2.3) mg/dL Total Bilirubin (0.2-1.3) mg/dL AST (17-59) U/L ALT (21-72) U/L Alkaline Phosphatase (38-126) U/L Total Creatine Kinase (55-170) U/L CK-MB (CK-2) (0.0-2.4) ng/mL CK-MB (CK-2) Rel Index Troponin I (0.000-0.034) ng/mL NT-Pro-B Natriuret Pep 3510 pg/mL Total Protein (6.3-8.2) g/dL Albumin (3.5-5.0) g/dL - EKG Data -: EKG Interpreted by Me (EKG shows pacemaker rate of 64, QRS 100, QTC 429) - Radiology Data Radiology results: report reviewed (Chest x-ray is positive for CHF positive for pneumonia), image reviewed Disposition Clinical Impression: Acute exacerbation of chronic obstructive airways disease, Community acquired pneumonia, Acute pulmonary edema, Congestive heart failure, Nosocomial pneumonia Disposition: ADMITTED IP TO THIS HOSP Condition: Fair Is patient prescribed a controlled substance at d/c from ED?: No
[2018-03-06 00:29] LABS: Creatine Kinase MB 0.7 ng/mL (0.0-2.4); Troponin I 0.024 ng/mL (0.000-0.034)
[2018-03-06] MEDS: FUROSEMIDE 10 MG/ML 4 ML VIAL IV SCH ×3 (02:55→17:28)
[2018-03-06 07:31] LABS: Glucose,Whole Blood 105 mg/dL (75-99)
[2018-03-06] MEDS: IPRATROPIUM-ALBUTEROL 3 ML NEB INHALATION SCH ×4 (09:22→20:30)
[2018-03-06] MEDS ORDERED: DOCUSATE 100 MG CAP PO PRN (11:10)
[2018-03-06] MEDS ORDERED: NITROGLYCERIN SL TABS 0.4 MG TAB SUBLINGUAL PRN (11:10)
[2018-03-06] MEDS ORDERED: guaiFENesin 600 MG TABLET.ER PO PRN (11:10)
[2018-03-06] MEDS ORDERED: ALBUTEROL NEBULIZED 2.5 MG/3 ML INHALATION PRN ×2 (11:10)
[2018-03-06 11:46] LABS: Glucose,Whole Blood 117 mg/dL (75-99)
[2018-03-06] MEDS: INSULIN ASPART 100 UNIT/ML 1 ML 10 ML VIAL SQ SCH ×3 (11:50→21:04)
[2018-03-06] MEDS ORDERED: NON-FORMULARY DRUG (Calcium/Magnesium/Zinc [Calcium-Magnesium-Zinc Tablet] 1 TAB) PO SCH (12:00)
[2018-03-06] MEDS ORDERED: COLCHICINE 0.6 MG EACH PO PRN (12:00)
[2018-03-06] MEDS: ENZALUTAMIDE 160 MG PO SCH (12:29)
[2018-03-06] MEDS ORDERED: CEFEPIME 2 GM in SODIUM CHLORIDE 0.9% 50 ML IVPB SCH (13:00)
[2018-03-06] MEDS: LACTOBACILLUS ACIDOPH & BULGAR 1 EACH PACKET PO SCH (13:04)
--- NOTE | 2018-03-06 14:05 | P.CRDCN ---
History of Present Illness History of present illness: This is a pleasant 87-year-old male past medical history significant for coronary artery disease status post bypass grafting as well as multiple angioplasties, paroxysmal atrial fibrillation on long-term anticoagulation, sick sinus syndrome status post permanent pacemaker implantation, diabetes mellitus, dyslipidemia, hypertension and chronic kidney disease. He follows with Dr. CANDELARIO Patrick in the office. We've been asked to see him in consultation secondary to shortness of breath and heart failure. He states for the previous 3-4 days he has noticed increasing shortness of breath. He is also coughing bringing up yellow green sputum at home. He recently established with Dr. Rivera as for pulmonary care due to his ongoing shortness of breath and he has been attending better breathers called regularly. He states his breathing over the previous 3-4 days seems to be worsening from his baseline. He also describes significant lower extremity edema and inability to lay flat without feeling short of breath. He denies chest pain, dizziness or palpitations. He recently underwent cardiac catheterization April 2017 revealing kasaan left main stent are patent without disease, diagonal free of significant disease, LAD is totally occluded in the proximal portion after the diagonal branch, circumflex has 2 small branches free of significant disease in the OM was grafted in the past, and SVG to the OM is occluded, SVG to PDA is patent with some disease in the body of the graft up to 40% with lowest breath, diffuse disease without critical stenosis noted of the PDA, a YOO to the LAD is widely patent with good flow the LAD itself has minor diffuse disease, the kasaan RCA has no significant disease and is a dominant vessel with a patent stent noted. EKG reveals sinus mechanism with first-degree AV block, PVCs and demand pacemaker. Chest x-ray on admission evidence of mild heart failure with small right pleural effusion and basilar mild infiltrates and atelectasis new compared to old exam. Laboratory data reviewed, WBC 4.9, hemoglobin 9.7, platelets 190, sodium 140, potassium 3.8, creatinine 1.31 with a GFR 50, magnesium 1.8, NT proBNP 3510, cardiac enzymes negative 2. Current cardiac medications include Eliquis 5 mg twice a day, atorvastatin 20 mg daily, carvedilol 6.25 mg twice a day, Lasix 40 mg daily, Imdur 60 mg daily, lisinopril 10 mg daily, Zaroxolyn 2.5 mg Sunday and and potassium supplementation. Most recent echocardiogram obtained April 2016 reveals preserved left ventricular systolic function with ejection fraction 55-60% with moderate concentric left ventricular hypertrophy noted. At the time of my exam: CONSTITUTIONAL: Denies fever. Denies chills. EYES: Denies blurred vision. Denies vision changes. Denies eye pain. EARS, NOSE, MOUTH & THROAT: Denies headache. Denies sore throat. Denies ear pain. CARDIOVASCULAR: Denies chest pain. Complains of shortness of breath. Complains of orthopnea. Denies PND. Denies palpitations. RESPIRATORY: Denies cough. GASTROINTESTINAL: Denies abdominal pain. Denies diarrhea. Denies constipation. Denies nausea. Denies vomiting. MUSCULOSKELETAL: Denies myalgias. INTEGUMENTARY: Denies pruitis. Denies rash. NEUROLOGIC: Denies numbness. Denies tingling. Denies weakness. PSYCHIATRIC: Denies anxiety. Denies depression. ENDOCRINE: Denies fatigue. Denies weight change. Denies polydipsia. Denies polyurina. GENITOURINARY: Denies burning, hematuria or urgency with micturation. HEMATOLOGIC: Denies history of anemia. Denies bleeding. Blood pressure 148/79 heart rate 65 afebrile maintaining oxygen saturation on room air GENERAL: This is a 87-year-old male in no apparent distress at the time of my examination. HEENT: Head is atraumatic, normocephalic. Pupils are equal, round. Sclerae anicteric. Conjunctivae are clear. Mucous membranes of the mouth are moist. Neck is supple. There is mild jugular venous distention. No carotid bruit is heard. LUNGS: Bibasilar rales noted. No wheezes or rhonchi. No chest wall tenderness is noted on palpation or with deep breathing. HEART: Regular rate and rhythm with systolic ejection murmur at the base, no rubs or gallops. S1 and S2 heard. ABDOMEN: Soft, nontender. Bowel sounds are heard. No organomegaly noted. EXTREMITIES: 2+ bilateral lower extremity edema and no calf tenderness noted. VASCULAR: Radial and dorsalis pedis pulses palpated, no evidence of clubbing. NEUROLOGIC: Patient is awake, alert and oriented x3. Seems mildly lethargic. ASSESSMENT Acute on chronic diastolic heart failure Paroxysmal atrial fibrillation on long-term anticoagulation Coronary artery disease status post bypass grafting Sick sinus syndrome status post permanent pacemaker implantation Diabetes mellitus Dyslipidemia Hypertension Chronic kidney disease PLAN Obtain 2-D echocardiogram and Doppler study to assess cardiac structure and function. Check pro-calcitonin level. Continue Lasix 40 mg every 8 hours. Add Aldactone 25 mg daily. Repeat electrolytes and kidney function in the morning. Obtain daily weights and document intake and output for accurate measuring of diuresis. We will continue to follow and make recommendations accordingly, thank you kindly for this consultation. Nurse Practitioner note has been reviewed, I agree with a documented findings and plan of care. Patient was seen and examined. 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, gout, SOB, dementia, frequent urination, one pressures sores on his left "bottom", History of Any Multi-Drug Resistant Organisms: None Reported Past Surgical History: Back Surgery, Cholecystectomy, Coronary Bypass/CABG, Heart Catheterization With Stent, Pacemaker Additional Past Surgical History / Comment(s): 13 cardiac stents, esophageal dilatation Past Anesthesia/Blood Transfusion Reactions: No Reported Reaction Date of Last Stent Placement:: unknown Type of Cardiac Device: Permanent Pacemaker Device Placement Date:: 10/03/16 Past Psychological History: Anxiety Additional Psychological History / Comment(s): dementia Smoking Status: Never smoker Past Alcohol Use History: Rare Past Drug Use History: None Reported - Past Family History Daughter(s) Family Medical History: Diabetes Mellitus Son(s) Family Medical History: No Reported History Mother Family Medical History: No Reported History Medications and Allergies Home Medications Medication Instructions Recorded Confirmed Type Albuterol Nebulized [Ventolin 2.5 mg INHALATION RT-QID PRN 11/12/15 03/05/18 History Nebulized] Atorvastatin Calcium [Lipitor] 20 mg PO W/SUPPER 11/12/15 03/05/18 History Calcium/Magnesium/Zinc 1 tab PO DAILY@1200 11/12/15 03/05/18 History [Imdxxui-Treeuprdm-Nmue Tablet] Carvedilol [Coreg] 6.25 mg PO BID 11/12/15 03/05/18 History Colchicine [Colcrys] 0.6 mg PO DAILY@1200 PRN 11/12/15 03/05/18 History Isosorbide Mononitrate ER [Imdur] 60 mg PO W/SUPPER 11/12/15 03/05/18 History Krill Oil 500 mg PO DAILY@1200 11/12/15 03/05/18 History L.acidoph,Paracasei, B.lactis 1 cap PO DAILY@1200 11/12/15 03/05/18 History [Probiotic] Metolazone [Zaroxolyn] 2.5 mg PO SUTUTH 11/12/15 03/05/18 History Multivitamins, Thera [Multivitamin 1 tab PO DAILY@1200 11/12/15 03/05/18 History (formulary)] Tamsulosin HCl [Flomax] 0.4 mg PO BID 11/12/15 03/05/18 History Cholecalciferol [Vitamin D3] 2,000 unit PO QAM 04/07/16 03/05/18 History Glimepiride [Amaryl] 0.5 mg PO AC-BRKFST #0 04/15/16 03/05/18 Rx Cranberry Fruit Extract [Cranberry] 500 mg PO DAILY 04/17/17 03/05/18 History Cyanocobalamin (Vitamin B-12) 5,000 mcg PO DAILY@1200 04/17/17 03/05/18 History [Vitamin B12] Febuxostat [Uloric] 40 mg PO DAILY@1200 04/17/17 03/05/18 History Furosemide [Lasix] 40 mg PO DAILY 04/17/17 03/05/18 History Nitroglycerin Sl Tabs [Nitrostat] 0.4 mg SUBLINGUAL Q5M PRN 04/17/17 03/05/18 History Rivastigmine [Exelon 13.3MG/24Hr 1 patch TRANSDERM DAILY 04/17/17 03/05/18 History Patch] Apixaban [Eliquis] 5 mg PO BID 10/03/17 03/05/18 History Budesonide [Pulmicort] 0.5 mg PO RT-BID 10/03/17 03/05/18 History Enzalutamide [Xtandi] 160 mg PO DAILY@1200 10/03/17 03/05/18 History Albuterol Nebulized [Ventolin 2.5 mg INHALATION RT-Q4H PRN 11/07/17 03/05/18 History Nebulized] Docusate [Colace] 100 mg PO DAILY PRN 11/07/17 03/05/18 History Lisinopril [Zestril] 10 mg PO DAILY 11/07/17 03/05/18 History Potassium Chloride ER [K-Dur 20] 20 meq PO DAILY@1200 11/07/17 03/05/18 History Ubidecarenone [Co Q-10] 100 mg PO W/SUPPER 11/07/17 03/05/18 History guaiFENesin [Mucinex] 600 mg PO Q12H PRN 11/07/17 03/05/18 History predniSONE 20 mg PO BID #10 tab 11/07/17 03/05/18 Rx Allergies Allergy/AdvReac Type Severity Reaction Status Date / Time Penicillins Allergy Unknown Verified 11/07/17 13:12 Physical Exam Vitals: Vital Signs Temp Pulse Pulse Resp BP BP Pulse Ox 03/06/18 09:34 66 03/06/18 09:22 65 03/06/18 07:30 97.9 F 65 18 148/79 98 03/06/18 02:15 65 18 03/06/18 01:00 78 18 159/91 81 L 03/06/18 00:32 64 03/06/18 00:21 97.8 F 65 14 149/64 100 03/06/18 00:03 60 03/05/18 23:50 22 03/05/18 23:00 67 10 L 152/91 97 03/05/18 22:40 98.2 F 57 L 22 152/91 97 03/05/18 22:38 97 Intake and Output 03/05/18 03/06/18 03/06/18 22:59 06:59 14:59 Intake Total 725 350 Output Total 400 Balance 325 350 Intake: Amount of Fluid Infused ( 75 ml) Intake, IV Titration 150 Amount Levofloxacin 750Mg-D5w 150 Pmx 750 mg In Dextrose/ Water 1 150ml.bag @ 100 mls/hr IVPB Q24H [facility] Rx#: [id number] Oral 500 350 Output: Urine 400 Other: Voiding Method Urinal Urinal # Voids 2 Weight 120.202 kg Results 03/05/18 23:10 03/05/18 23:10 Cardiac Enzymes 03/05/18 03/05/18 03/06/18 Range/Units 23:10 23:10 07:19 AST 20 (17-59) U/L CK-MB (CK-2) 0.7 (0.0-2.4) ng/mL Troponin I 0.024 0.027 (0.000-0.034) ng/mL Coagulation 03/05/18 Range/Units 23:10 PT 11.3 (9.0-12.0) sec APTT 25.6 (22.0-30.0) sec CBC 03/05/18 Range/Units 23:10 WBC 4.9 (3.8-10.6) k/uL RBC 3.63 L (4.30-5.90) m/uL Hgb 9.7 L (13.0-17.5) gm/dL Hct 30.8 L (39.0-53.0) % Plt Count 190 (150-450) k/uL Comprehensive Metabolic Panel 03/05/18 Range/Units 23:10 Sodium 140 (137-145) mmol/L Potassium 3.8 (3.5-5.1) mmol/L Chloride 108 H (98-107) mmol/L Carbon Dioxide 25 (22-30) mmol/L BUN 26 H (9-20) mg/dL Creatinine 1.31 H (0.66-1.25) mg/dL Glucose 86 (74-99) mg/dL Calcium 8.9 (8.4-10.2) mg/dL AST 20 (17-59) U/L ALT 21 (21-72) U/L Alkaline Phosphatase 75 (38-126) U/L Total Protein 6.2 L (6.3-8.2) g/dL Albumin 3.3 L (3.5-5.0) g/dL Current Medications Generic Name Dose Route Start Last Admin Trade Name Freq PRN Reason Stop Dose Admin Albuterol Sulfate 2.5 mg 03/06/18 11:10 Ventolin Nebulized INHALATION RT-Q4H PRN Shortness Of Breath Albuterol/Ipratropium 3 ml 03/06/18 08:00 03/06/18 12:33 Duoneb 0.5 Mg-3 Mg/3 Ml Soln INHALATION Not Given RT-QID [facility] Allopurinol 200 mg 03/06/18 12:00 Zyloprim PO DAILY@1200 [facility] Apixaban 5 mg 03/06/18 11:15 Eliquis PO BID [facility] Atorvastatin Calcium 20 mg 03/06/18 17:30 Lipitor PO W/SUPPER [facility] Budesonide 0.5 mg 03/06/18 20:00 Pulmicort INHALATION RT-BID [facility] Carvedilol 6.25 mg 03/06/18 11:15 Coreg PO AC-BID [facility] Cholecalciferol 2,000 unit 03/07/18 09:00 Vitamin D3 PO QAM [facility] Colchicine 0.6 mg 03/06/18 12:00 Colcrys PO DAILY@1200 PRN GOUT Cyanocobalamin 500 mcg 03/06/18 12:00 Vitamin B-12 PO DAILY@1200 [facility] Docusate Sodium 100 mg 03/06/18 11:10 Colace PO DAILY PRN Constipation Furosemide 40 mg 03/06/18 00:30 03/06/18 09:00 Lasix IV 40 mg Q8H [facility] Administration Glimepiride 0.5 mg 03/07/18 07:30 Amaryl PO AC-BRKFST [facility] Guaifenesin 600 mg 03/06/18 11:10 Mucinex PO Q12H PRN Congestion Levofloxacin 750 mg/ IV 150 mls @ 100 mls/hr 03/07/18 00:25 Solution IVPB 03/19/18 00:26 Q24H [facility] Insulin Aspart 0 unit 03/06/18 12:30 03/06/18 11:50 Novolog SQ Not Given ACHS [facility] Protocol Isosorbide Mononitrate 60 mg 03/06/18 17:30 Imdur PO W/SUPPER [facility] Lactobacillus Acidoph/Bulgaricus 1 each 03/06/18 12:00 03/06/18 13:04 Lactinex PO Not Given DAILY@1200 [facility] Lisinopril 10 mg 03/06/18 09:00 Zestril PO DAILY [facility] Metolazone 2.5 mg 03/07/18 09:00 Zaroxolyn PO SUTUTH [facility] Miscellaneous Information 1 each 03/06/18 00:20 Pneumonia Protocol Utilized PO ONCE PRN Per Protocol Multivitamins 1 each 03/06/18 12:00 Theragran PO DAILY@1200 [facility] Nitroglycerin 0.4 mg 03/06/18 11:10 Nitrostat SUBLINGUAL Q5M PRN Chest Pain Non-Formulary Medication 160 mg 03/06/18 12:00 03/06/18 12:29 Enzalutamide [Xtandi] PO Not Given DAILY@1200 [facility] Potassium Chloride 40 meq 03/06/18 12:00 K-Dur 20 PO DAILY@1200 [facility] Prednisone 20 mg 03/06/18 11:15 PO BID [facility] Rivastigmine 1 patch 03/06/18 11:15 Exelon 13.3mg/24hr Patch TRANSDERM DAILY [facility] Spironolactone 25 mg 03/06/18 12:30 Aldactone PO DAILY [facility] Tamsulosin HCl 0.4 mg 03/06/18 11:15 Flomax PO BID [facility] Intake and Output 03/05/18 03/06/18 03/06/18 22:59 06:59 14:59 Intake Total 725 350 Output Total 400 Balance 325 350 Intake: Amount of Fluid Infused ( 75 ml) Intake, IV Titration 150 Amount Levofloxacin 750Mg-D5w 150 Pmx 750 mg In Dextrose/ Water 1 150ml.bag @ 100 mls/hr IVPB Q24H [facility] Rx#: [id number] Oral 500 350 Output: Urine 400 Other: Voiding Method Urinal Urinal # Voids 2 Weight 120.202 kg 03/05/18 23:10 03/05/18 23:10
--- NOTE | 2018-03-06 14:42 | P.HPIM ---
History of Present Illness H&P Date: 03/06/18 Chief Complaint: Shortness of breath This is an 87-year-old male. His primary care physician is Dr. Mercer and flask carrier is Dr. CANDELARIO Patrick. He has a past medical history of coronary artery disease with prior coronary artery stenting, diabetes mellitus type 2, hypertension, hyperlipidemia, chronic atrial fibrillation on Eliquis, chronic diastolic heart failure, obstructive sleep apnea with CPAP, gastroesophageal reflux disease, dementia, prostate cancer. Patient is unable to provide details of his presentation to the hospital due to underlying dementia. According to the patient's , he developed trouble breathing along with a cough. She denied having any fever or chills. He did have increased lower extremity edema which is improved today. She denies that he has had any falls. He normally uses a cane for ambulation but also has a walker available. Patient came into [facility] emergency center for evaluation. He has been afebrile, heart rate running in the 50s and 60s, initial blood pressure 152/91 and pulse ox 97% on room air. White count normal, hemoglobin 9.7, BUN 26 and creatinine 1.31. Troponin 0.0 to 40.027. ProBNP 3510. Chest x- ray showed mild heart failure with small right pleural effusion and basilar mild infiltrate and atelectasis compared to old exam. Patient has been started on IV Lasix 40 mg every 8 hours and [facility] with consults for cardiology and pulmonary medicine. Echocardiogram from 04/2016 reveals EF 55 -60%, trace tricuspid regurgitation, moderate concentric left ventricular hypertrophy. Review of Systems ROS unobtainable: due to mental status Constitutional: Denies chills, Denies fever Cardiovascular: Reports edema, Reports leg edema, Reports shortness of breath Respiratory: Reports dyspnea 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, gout, SOB, dementia, frequent urination, one pressures sores on his left "bottom", History of Any Multi-Drug Resistant Organisms: None Reported Past Surgical History: Back Surgery, Cholecystectomy, Coronary Bypass/CABG, Heart Catheterization With Stent, Pacemaker Additional Past Surgical History / Comment(s): 13 cardiac stents, esophageal dilatation Past Anesthesia/Blood Transfusion Reactions: No Reported Reaction Date of Last Stent Placement:: unknown Type of Cardiac Device: Permanent Pacemaker Device Placement Date:: 10/03/16 Past Psychological History: Anxiety Additional Psychological History / Comment(s): dementia Smoking Status: Never smoker Past Alcohol Use History: Rare Additional Past Alcohol Use History / Comment(s): Patient lives at home at [facility] with his . He uses a cane for ambulation but also has walker available. Past Drug Use History: None Reported - Past Family History Daughter(s) Family Medical History: Diabetes Mellitus Son(s) Family Medical History: No Reported History Mother Family Medical History: No Reported History Medications and Allergies Home Medications Medication Instructions Recorded Confirmed Type Albuterol Nebulized [Ventolin 2.5 mg INHALATION RT-QID PRN 11/12/15 03/05/18 History Nebulized] Atorvastatin Calcium [Lipitor] 20 mg PO W/SUPPER 11/12/15 03/05/18 History Calcium/Magnesium/Zinc 1 tab PO DAILY@1200 11/12/15 03/05/18 History [Hnjlckl-Srhqeykch-Rfhk Tablet] Carvedilol [Coreg] 6.25 mg PO BID 11/12/15 03/05/18 History Colchicine [Colcrys] 0.6 mg PO DAILY@1200 PRN 11/12/15 03/05/18 History Isosorbide Mononitrate ER [Imdur] 60 mg PO W/SUPPER 11/12/15 03/05/18 History Krill Oil 500 mg PO DAILY@1200 11/12/15 03/05/18 History L.acidoph,Paracasei, B.lactis 1 cap PO DAILY@1200 11/12/15 03/05/18 History [Probiotic] Metolazone [Zaroxolyn] 2.5 mg PO SUTUTH 11/12/15 03/05/18 History Multivitamins, Thera [Multivitamin 1 tab PO DAILY@1200 11/12/15 03/05/18 History (formulary)] Tamsulosin HCl [Flomax] 0.4 mg PO BID 11/12/15 03/05/18 History Cholecalciferol [Vitamin D3] 2,000 unit PO QAM 04/07/16 03/05/18 History Glimepiride [Amaryl] 0.5 mg PO AC-BRKFST #0 04/15/16 03/05/18 Rx Cranberry Fruit Extract [Cranberry] 500 mg PO DAILY 04/17/17 03/05/18 History Cyanocobalamin (Vitamin B-12) 5,000 mcg PO DAILY@1200 04/17/17 03/05/18 History [Vitamin B12] Febuxostat [Uloric] 40 mg PO DAILY@1200 04/17/17 03/05/18 History Furosemide [Lasix] 40 mg PO DAILY 04/17/17 03/05/18 History Nitroglycerin Sl Tabs [Nitrostat] 0.4 mg SUBLINGUAL Q5M PRN 04/17/17 03/05/18 History Rivastigmine [Exelon 13.3MG/24Hr 1 patch TRANSDERM DAILY 04/17/17 03/05/18 History Patch] Apixaban [Eliquis] 5 mg PO BID 10/03/17 03/05/18 History Budesonide [Pulmicort] 0.5 mg PO RT-BID 10/03/17 03/05/18 History Enzalutamide [Xtandi] 160 mg PO DAILY@1200 10/03/17 03/05/18 History Albuterol Nebulized [Ventolin 2.5 mg INHALATION RT-Q4H PRN 11/07/17 03/05/18 History Nebulized] Docusate [Colace] 100 mg PO DAILY PRN 11/07/17 03/05/18 History Lisinopril [Zestril] 10 mg PO DAILY 11/07/17 03/05/18 History Potassium Chloride ER [K-Dur 20] 20 meq PO DAILY@1200 11/07/17 03/05/18 History Ubidecarenone [Co Q-10] 100 mg PO W/SUPPER 11/07/17 03/05/18 History guaiFENesin [Mucinex] 600 mg PO Q12H PRN 11/07/17 03/05/18 History predniSONE 20 mg PO BID #10 tab 11/07/17 03/05/18 Rx Allergies Allergy/AdvReac Type Severity Reaction Status Date / Time Penicillins Allergy Unknown Verified 11/07/17 13:12 Physical Exam Vitals: Vital Signs Temp Pulse Pulse Resp BP BP Pulse Ox 03/06/18 09:34 66 03/06/18 09:22 65 03/06/18 07:30 97.9 F 65 18 148/79 98 03/06/18 02:15 65 18 03/06/18 01:00 78 18 159/91 81 L 03/06/18 00:32 64 03/06/18 00:21 97.8 F 65 14 149/64 100 03/06/18 00:03 60 03/05/18 23:50 22 03/05/18 23:00 67 10 L 152/91 97 03/05/18 22:40 98.2 F 57 L 22 152/91 97 03/05/18 22:38 97 Intake and Output 03/05/18 03/06/18 03/06/18 22:59 06:59 14:59 Intake Total 725 350 Output Total 400 Balance 325 350 Intake: Amount of Fluid Infused ( 75 ml) Intake, IV Titration 150 Amount Levofloxacin 750Mg-D5w 150 Pmx 750 mg In Dextrose/ Water 1 150ml.bag @ 100 mls/hr IVPB Q24H [facility] Rx#: [id number] Oral 500 350 Output: Urine 400 Other: Voiding Method Urinal Urinal # Voids 2 Weight 120.202 kg Gen: This is an 87-year-old male. He is sitting up in bed and appears to be in no acute distress. He is pleasantly confused. HEENT: Head is atraumatic, normocephalic. Pupils equal, round. Sclerae is anicteric. NECK: Supple. No JVD. No lymphadenopathy. No thyromegaly. LUNGS: Clear to auscultation. No wheezes or rhonchi. No intercostal retractions. HEART: Irregularly irregular rate and rhythm. No murmur. ABDOMEN: Soft. Bowel sounds are present. No masses. No tenderness. EXTREMITIES: trace bilat pedal edema. No calf tenderness. NEUROLOGICAL: Patient is awake, alert and oriented to person and is pleasantly confused. Cranial nerves 2 through 12 are grossly intact. Results CBC & Chem 7: 03/05/18 23:10 03/05/18 23:10 Labs: Abnormal Lab Results - Last 24 Hours (Table) 03/05/18 03/05/18 03/05/18 Range/Units 23:10 23:10 23:10 RBC 3.63 L (4.30-5.90) m/uL Hgb 9.7 L (13.0-17.5) gm/dL Hct 30.8 L (39.0-53.0) % RDW 16.3 H (11.5-15.5) % Lymphocytes # 0.7 L (1.0-4.8) k/uL Chloride 108 H (98-107) mmol/L BUN 26 H (9-20) mg/dL Creatinine 1.31 H (0.66-1.25) mg/dL POC Glucose (mg/dL) (75-99) mg/dL Total Creatine Kinase 27 L (55-170) U/L Total Protein 6.2 L (6.3-8.2) g/dL Albumin 3.3 L (3.5-5.0) g/dL 03/06/18 Range/Units 07:20 RBC (4.30-5.90) m/uL Hgb (13.0-17.5) gm/dL Hct (39.0-53.0) % RDW (11.5-15.5) % Lymphocytes # (1.0-4.8) k/uL Chloride (98-107) mmol/L BUN (9-20) mg/dL Creatinine (0.66-1.25) mg/dL POC Glucose (mg/dL) 105 H (75-99) mg/dL Total Creatine Kinase (55-170) U/L Total Protein (6.3-8.2) g/dL Albumin (3.5-5.0) g/dL Thrombosis Risk Factor Assmnt - DVT/VTE Prophylaxis DVT/VTE Prophylaxis: Pharmacologic Prophylaxis ordered - Choose All That Apply Any of the Below Risk Factors Present?: Yes Each Factor Represents 1 point: Heart failure (<1month), Obesity (BMI >25), Swollen legs (current) Other Risk Factors: Yes Each Risk Factor Represents 3 Points: Age 75 years or older Thrombosis Risk Factor Assessment Total Risk Factor Score: 6 Thrombosis Risk Factor Assessment Level: High Risk Assessment and Plan Plan: 1. Acute on chronic diastolic heart failure. Continue Lasix 40 mg IV every 8 hours, spironolactone 25 mg daily, Zaroxolyn 2.5 mg on Sunday, lisinopril 10 mg daily. Monitor I&O, daily weights, electrolytes and renal function. Cardiology consult appreciated. 2. Pleural effusion and possible infiltrate. Pulmonary consult added. Continue DuoNeb treatments, Pulmicort twice daily, Mucinex, Levaquin IV, metolazone, prednisone. 3. Chronic atrial fibrillation. Continue Coreg 6.25 mg twice daily and Eliquis. 4. Diabetes mellitus type 2. Continue glimepiride 0.5 mg daily and Humalog scale before meals and at bedtime. 5. History of chronic diastolic heart failure. Continue as in #1. 6. Hypertension. Continue Coreg 6.25 mg twice daily and lisinopril 10 mg daily. 7. Hyperlipidemia. Continue Lipitor. 8. Benign prostatic hypertrophy. Continue Flomax twice daily. 9. History of coronary artery disease. Continue aspirin 81 mg daily, Lipitor, Coreg. 10. Obstructive sleep apnea on CPAP. 11. Prostate cancer. Continue enzalutamide. Patient may take his medication from home. 12. Chronic kidney disease stage III, stable. Monitor renal function. 13. GI prophylaxis. Pepcid. 14. DVT prophylaxis. Eliquis. Patient will be admitted to the hospital for a minimum of 2 night stay. Discharge plan: to be determined. PT and OT added. Impression and plan of care have been directed as dictated by the signing physician. Sheyla George nurse practitioner acting as scribe for signing physician.
[2018-03-06] MEDS: TAMSULOSIN 0.4 MG CAP.ER.24H PO SCH ×2 (15:02→21:04)
[2018-03-06] MEDS: SPIRONOLACTONE 25 MG TAB PO SCH (15:02)
[2018-03-06] MEDS: LISINOPRIL 10 MG TAB PO SCH (15:02)
[2018-03-06] MEDS: RIVASTIGMINE 13.3MG/24HR PATCH TRANSDERM SCH (15:02)
[2018-03-06] MEDS: ATORVASTATIN 20 MG TAB PO SCH (15:03)
[2018-03-06] MEDS: MULTIVITAMINS, THERA 1 EACH TAB PO SCH (15:03)
[2018-03-06] MEDS: POTASSIUM CHLORIDE ER 20 MEQ TAB.ER PO SCH (15:03)
[2018-03-06] MEDS: APIXABAN 5 MG TAB PO SCH ×2 (15:03→20:58)
[2018-03-06] MEDS: CYANOCOBALAMIN 500 MCG TAB PO SCH (15:03)
[2018-03-06] MEDS: CARVEDILOL 6.25 MG TAB PO SCH ×2 (15:03→15:14)
[2018-03-06] MEDS: predniSONE 20 MG TAB PO SCH ×2 (15:03→21:04)
[2018-03-06] MEDS: ALLOPURINOL 100 MG TAB PO SCH (15:03)
[2018-03-06 15:36] VITALS: BMI 35.9
[2018-03-06 17:06] LABS: Glucose,Whole Blood 119 mg/dL (75-99)
[2018-03-06] MEDS: ISOSORBIDE MONONITRATE ER 60 MG TAB.ER.24H PO SCH (17:28)
[2018-03-06 19:40] LABS: Glucose,Whole Blood 175 mg/dL (75-99)
[2018-03-06] MEDS: BUDESONIDE 0.5 MG/2 ML NEBU INHALATION SCH (20:30)
--- NOTE | 2018-03-06 22:39 | CONS ---
CONSULTATION Vishnu Chery is an 87-year-old male who was brought into the ER after he was found to have a low oxygen level by his home nurse. He had exertional dyspnea and some shortness of breath when he talked in sentences. He subsequently came into the ER and was admitted for further evaluation and management. PAST MEDICAL HISTORY: 1. Positive for obstructive sleep apnea, for which he wears a CPAP. 2. History of congestive heart failure. 3. History of prostate cancer. 4. History of coronary artery disease, previous coronary artery bypass, history of previous stent placement. 5. Esophageal dilatation. 6. Previous pacemaker. 7. History of dementia. FAMILY HISTORY: Positive for diabetes in his daughter. Patient is a poor historian. SOCIAL HISTORY: Patient was never a smoker. Does not drink alcohol excessively. MEDICATIONS PRIOR TO ADMISSION: 1. Prednisone. 2. Guaifenesin. 3. Co-QT. 4. Tamsulosin. 5. Exelon. 6. K-Dur. 7. Nitrostat. 8. Multivitamin. 9. Zaroxolyn. 10.Zestril. 11.Krill oil. 12.Imdur. 13.Amaryl. 14.Lasix. 15.Uloric. 16.Xtandi. 17.Colace. 18.Vitamin B12. 19.Cranberry. 20.Colcrys. 21.Vitamin D3. 22.Coreg. 23.Calcium/Magnesium/Zinc tablet. 24.Pulmicort. 25.Lipitor. 26.Eliquis. 27.Ventolin. REVIEW OF SYSTEMS: Noncontributory. PHYSICAL EXAMINATION: Respiratory rate is 22, pulse rate 57, temperature 98.2, blood pressure 152/91, oxygen saturation on room air 97%. HEENT reveals pupils that are equal. No jugular venous distention. Chest reveals decreased breath sounds in the bases. No clear wheeze. Occasional crackle. Cardiovascular system is in S1, S2. Abdomen is soft. There is 1+ pedal edema. LABS/IMAGING: White count is 4.9, hemoglobin of 9.7, platelet count of 190. Sodium 140, potassium 3.8, chloride 108, bicarb 25, BUN 26, creatinine 1.31, albumin 3.3. Chest x-ray shows blunting of the right costophrenic angle with mild pulmonary congestion, pacemaker, sternal wires. BNP level was 3510. IMPRESSION AT THIS TIME: 1. Hypoxia secondary to congestive heart failure. 2. Obstructive sleep apnea. 3. Atrial fibrillation. 4. Cannot rule out early pneumonia. At this point in time, would treat the patient for congestive heart failure by optimizing fluid status with Lasix. Keep him on beta quinn and afterload reduction with Zestril. Get him on his home BiPAP, which his daughter is apparently bringing in. Continue him on his steroids, bronchodilators. Depending on how he does, we shall make further changes to his care. I would like to thank you for allowing me the privilege of participating in his care. MMODL / IJN: [id number] /
[2018-03-07] MEDS ORDERED: LEVOFLOXACIN 750MG-D5W PMX 750 MG in DEXTROSE/WATER 1 150ML.BAG IVPB SCH (00:25)
[2018-03-07] MEDS: FUROSEMIDE 10 MG/ML 4 ML VIAL IV SCH ×3 (01:13→20:41)
[2018-03-07 07:38] LABS: Glucose,Whole Blood 125 mg/dL (75-99)
[2018-03-07] MEDS: INSULIN ASPART 100 UNIT/ML 1 ML 10 ML VIAL SQ SCH ×4 (07:54→20:41)
[2018-03-07] MEDS: FAMOTIDINE 20 MG TAB PO SCH (08:02)
[2018-03-07] MEDS: SPIRONOLACTONE 25 MG TAB PO SCH (08:02)
[2018-03-07] MEDS: CHOLECALCIFEROL 1,000 UNIT TAB PO SCH (08:02)
[2018-03-07] MEDS: APIXABAN 5 MG TAB PO SCH ×2 (08:03→20:41)
[2018-03-07] MEDS: LISINOPRIL 10 MG TAB PO SCH (08:03)
[2018-03-07] MEDS: CARVEDILOL 6.25 MG TAB PO SCH ×2 (08:03→18:05)
[2018-03-07] MEDS: predniSONE 20 MG TAB PO SCH ×2 (08:03→20:41)
[2018-03-07] MEDS: TAMSULOSIN 0.4 MG CAP.ER.24H PO SCH ×2 (08:03→20:41)
[2018-03-07] MEDS: GLIMEPIRIDE 0.5 MG TAB PO SCH (08:04)
[2018-03-07] MEDS: RIVASTIGMINE 13.3MG/24HR PATCH TRANSDERM SCH (08:04)
--- NOTE | 2018-03-07 08:07 | XR ---
EXAMINATION TYPE: XR chest 2V DATE OF EXAM: 03/07/2018 COMPARISON: 03/06/2018 HISTORY: Difficulty breathing. Follow-up for pneumonia. TECHNIQUE: Frontal and lateral views of the chest are obtained. FINDINGS: There is improved aeration of the right lung base with persistent trace left pleural effus ion and left basilar opacity. There are numerous scattered benign pulmonary granulomas. Cardiomediast inal silhouette is again enlarged with single lead right-sided cardiac device and postoperative alvarado es from prior CABG. Surgical clips are also noted in the right upper quadrant. Osseous structures are grossly intact with degenerative changes of the thoracic spine. IMPRESSION: Nearly resolved right basilar opacity likely representing minimal subsegmental residual atelectasis with persistent left trace pleural effusion and left-sided airspace disease noted to be c hronic as discussed on the prior CT dated 11/15/2017.
[2018-03-07] MEDS ORDERED: METOLAZONE 2.5 MG TAB PO SCH (09:00)
[2018-03-07] MEDS: BUDESONIDE 0.5 MG/2 ML NEBU INHALATION SCH ×2 (09:20→21:04)
[2018-03-07] MEDS: IPRATROPIUM-ALBUTEROL 3 ML NEB INHALATION SCH ×4 (09:20→21:04)
[2018-03-07 09:30] LABS: Calcium 8.5 mg/dL (8.4-10.2); Potassium 3.5 mmol/L (3.5-5.1)
[2018-03-07 09:52] LABS: Anisocytosis Slight; Basophils % (A) 0 %; Eosinophils % (A) 0 %; HCT 32.4 % (39.0-53.0); HGB 10.1 gm/dL (13.0-17.5); Hypochromasia Slight; Lymphocytes # (A) 0.6 k/uL (1.0-4.8); Lymphocytes % (A) 11 %; MCH 26.5 pg (25.0-35.0); MCHC 31.2 g/dL (31.0-37.0); MCV 84.9 fL (80.0-100.0); Mean Platelet Volume 8.2; Monocytes # (A) 0.4 k/uL (0-1.0); Monocytes % (A) 6 %; Neutrophils # (A) 4.6 k/uL (1.3-7.7); Neutrophils % (A) 81 %; Platelet Count 205 k/uL (150-450); RBC 3.81 m/uL (4.30-5.90); RDW 16.2 % (11.5-15.5); WBC 5.6 k/uL (3.8-10.6)
--- NOTE | 2018-03-07 11:07 | P.PN ---
Subjective Progress Note Date: 03/07/18 HPI: This is an 87-year-old male patient well-known to our services. This patient was brought into the ER after his son have a low oxygen level by his home nurse. He had exertional dyspnea and some shortness of breath when he had conversation or talk in sentences. He subsequently came into the ER for further evaluation and treatment and was admitted for further evaluation and management. He does have a past medical history positive for obstructive sleep apnea for which she wears CPAP, CHF, prostate cancer, CAD with previous CABG, esophageal dilation, pacemaker, and dementia. He has been out life long nonsmoker. He has a poor historian. Family at bedside Interval history: 03/07/2017patient is being seen examined and evaluated today for follow-up on rounds. His chest x-ray from today is improved and is resolving right basilar opacity and shows the persistent left trace pleural effusion. The patient's feels his breathing has been much better. He has been diuresed and has had adequate output. He does use his CPAP from home at each night. His echocardiogram is pending. He states he still feels weak and continues to have some shortness of breath with exertion and activity. Currently he is on room air. Cardiology is also following with the patient. He is afebrile no further complaints. Objective - Vital Signs Vital signs: Vital Signs Temp 98 F 03/07/18 07:00 Pulse 68 03/07/18 09:32 Resp 16 03/07/18 07:00 BP 138/58 03/07/18 07:00 Pulse Ox 95 03/07/18 07:00 Intake & Output 03/06/18 03/07/18 03/07/18 18:59 06:59 18:59 Intake Total 350 Output Total 350 350 Balance 350 -350 -350 Weight 120.202 kg Intake: Oral 350 Output: Urine 350 350 Other: Voiding Method Urinal Urinal # Voids 1 - Exam GENERAL EXAM: Alert, active, comfortable in no apparent distress. HEAD: Normocephalic. EYES: Normal reaction of pupils, equal size. NOSE: Clear with pink turbinates. THROAT: No erythema or exudates. NECK: No masses, no JVD. CHEST: No chest wall deformity. LUNGS: Lungs noted to be somewhat coarse throughout with some faint basilar crackles. CVS: S1 and S2 normal with no audible mumurs, regular rhythm. ABDOMEN: No hepatosplenomegaly, normal bowel sounds, no guarding or rigidity. EXTREMITIES: +1 edema noted, pedal pulses palpable. CENTRAL NERVOUS SYSTEM: No focal deficits, tone is normal in all 4 extremities. - Labs CBC & Chem 7: 03/07/18 07:34 03/07/18 07:34 Labs: Abnormal Lab Results - Last 24 Hours (Table) 03/06/18 03/06/18 03/06/18 Range/Units 11:29 16:54 19:39 RBC (4.30-5.90) m/uL Hgb (13.0-17.5) gm/dL Hct (39.0-53.0) % RDW (11.5-15.5) % Lymphocytes # (1.0-4.8) k/uL BUN (9-20) mg/dL Creatinine (0.66-1.25) mg/dL Glucose (74-99) mg/dL POC Glucose (mg/dL) 117 H 119 H 175 H (75-99) mg/dL 03/07/18 03/07/18 03/07/18 Range/Units 07:25 07:34 07:34 RBC 3.81 L (4.30-5.90) m/uL Hgb 10.1 L (13.0-17.5) gm/dL Hct 32.4 L (39.0-53.0) % RDW 16.2 H (11.5-15.5) % Lymphocytes # 0.6 L (1.0-4.8) k/uL BUN 30 H (9-20) mg/dL Creatinine 1.46 H (0.66-1.25) mg/dL Glucose 113 H (74-99) mg/dL POC Glucose (mg/dL) 125 H (75-99) mg/dL Microbiology - Last 24 Hours (Table) 03/05/18 23:10 Blood Culture - Preliminary Blood No Growth after 24 hours Assessment and Plan Assessment: Assessment Acute hypoxic respiratory failure requiring supplemental oxygen Acute exacerbation of CHF Obstructive sleep apnea on CPAP Atrial fibrillation Cannot rule out early pneumonia at this point Plan Medications have been reviewed and will be continued as ordered. Continue with antibiotics Continue with diuresis Echocardiogram pending, cardiology on consult Continue with pulmonary hygiene, coughing and deep breathing exercises, and supportive care. Supplemental oxygen to maintain oxygen saturations of 92% or better. Continue nebulizer treatments. Initiate and encourage incentive spirometer and flutter valve Obtain sputum culture Patient to bring in home CPAP and use each night and when needed Increase activity as tolerated PT and OT GI and DVT prophylaxis. We will continue to monitor labs/results and adjust treatment as necessary. Further recommendations pending. I, the signing physician performed an examination of the patient, discussed and directed their management with the nurse practitioner. I have reviewed the nurse practitioner's note and agree with the documented findings, orders and plan of care. Nurse practitioner acting as a scribe for the signing physician.
[2018-03-07 11:50] LABS: Glucose,Whole Blood 133 mg/dL (75-99)
[2018-03-07] MEDS: POTASSIUM CHLORIDE ER 20 MEQ TAB.ER PO SCH (12:55)
[2018-03-07] MEDS: ALLOPURINOL 100 MG TAB PO SCH (12:55)
[2018-03-07] MEDS: CYANOCOBALAMIN 500 MCG TAB PO SCH (12:55)
[2018-03-07] MEDS: ENZALUTAMIDE 160 MG PO SCH (12:56)
[2018-03-07] MEDS: LACTOBACILLUS ACIDOPH & BULGAR 1 EACH PACKET PO SCH (12:56)
[2018-03-07] MEDS: MULTIVITAMINS, THERA 1 EACH TAB PO SCH (13:00)
--- NOTE | 2018-03-07 13:07 | P.PN ---
Subjective This is a pleasant 87-year-old male past medical history significant for coronary artery disease status post bypass grafting as well as multiple angioplasties, paroxysmal atrial fibrillation on long-term anticoagulation, sick sinus syndrome status post permanent pacemaker implantation, diabetes mellitus, dyslipidemia, hypertension and chronic kidney disease. He follows with Dr. CANDELARIO Patrick in the office. He is currently maintained on lasix 40 mg TID. He states he is feeling overall better with improvement in his shortness of breath. He is no longer requiring oxygen. Echo obtained and will be reviewed. Laboratory data reviewed, WBC 5.6, hemoglobin 10.1, platelets 205, sodium 139, potassium 3.5, creatinine 1.46. Pro-calcitonin level pending. Inaccurate documentation of intake and output. Repeat chest x-ray this morning reveals nearly resolved right basilar opacity with persistent left trace pleural effusion noted as chronic on computed tomography scan from November 2017. HEENT: Head is atraumatic, normocephalic. Pupils are equal, round. Sclerae anicteric. Conjunctivae are clear. Mucous membranes of the mouth are moist. Neck is supple. There is mild jugular venous distention. No carotid bruit is heard. LUNGS: Faint bibasilar rales noted. No wheezes or rhonchi. No chest wall tenderness is noted on palpation or with deep breathing. HEART: Regular rate and rhythm with systolic ejection murmur at the base, no rubs or gallops. S1 and S2 heard. EXTREMITIES: 1+ edema to left lower extremity, trace in the right. No calf tenderness. Daughter states that is chronic secondary to drop foot on the left. ASSESSMENT Acute on chronic diastolic heart failure Paroxysmal atrial fibrillation on long-term anticoagulation Coronary artery disease status post bypass grafting Sick sinus syndrome status post permanent pacemaker implantation Diabetes mellitus Dyslipidemia Hypertension Chronic kidney disease PLAN Decrease lasix to 40 mg BID. Follow electrolytes and kidney function daily. Please document accurate intake and output along with daily weight. We will continue to follow and make recommendations accordingly. Nurse Practitioner note has been reviewed, I agree with a documented findings and plan of care. Patient was seen and examined. Objective - Vital Signs Vital signs: Vital Signs Temp 98 F 03/07/18 07:00 Pulse 72 03/07/18 12:28 Resp 16 03/07/18 07:00 BP 138/58 03/07/18 07:00 Pulse Ox 95 01/03/19 07:00 Intake & Output 03/06/18 03/07/18 03/07/18 18:59 06:59 18:59 Intake Total 350 Output Total 350 350 Balance 350 -350 -350 Weight 120.202 kg Intake: Oral 350 Output: Urine 350 350 Other: Voiding Method Urinal Urinal # Voids 1 - Labs CBC & Chem 7: 03/07/18 07:34 03/07/18 07:34 Labs: Abnormal Lab Results - Last 24 Hours (Table) 03/06/18 03/06/18 03/07/18 Range/Units 16:54 19:39 07:25 RBC (4.30-5.90) m/uL Hgb (13.0-17.5) gm/dL Hct (39.0-53.0) % RDW (11.5-15.5) % Lymphocytes # (1.0-4.8) k/uL BUN (9-20) mg/dL Creatinine (0.66-1.25) mg/dL Glucose (74-99) mg/dL POC Glucose (mg/dL) 119 H 175 H 125 H (75-99) mg/dL 03/07/18 03/07/18 03/07/18 Range/Units 07:34 07:34 11:38 RBC 3.81 L (4.30-5.90) m/uL Hgb 10.1 L (13.0-17.5) gm/dL Hct 32.4 L (39.0-53.0) % RDW 16.2 H (11.5-15.5) % Lymphocytes # 0.6 L (1.0-4.8) k/uL BUN 30 H (9-20) mg/dL Creatinine 1.46 H (0.66-1.25) mg/dL Glucose 113 H (74-99) mg/dL POC Glucose (mg/dL) 133 H (75-99) mg/dL Microbiology - Last 24 Hours (Table) 03/05/18 23:10 Blood Culture - Preliminary Blood No Growth after 24 hours
--- NOTE | 2018-03-07 13:45 | P.PN ---
Subjective Progress Note Date: 03/07/18 This is an 87-year-old male. His primary care physician is Dr. Mercer and plate painter apprentice is Dr. CANDELAROI Patrick. He has a past medical history of coronary artery disease with prior coronary artery stenting, diabetes mellitus type 2, hypertension, hyperlipidemia, chronic atrial fibrillation on Eliquis, chronic diastolic heart failure, obstructive sleep apnea with CPAP, gastroesophageal reflux disease, dementia, prostate cancer. Patient is unable to provide details of his presentation to the hospital due to underlying dementia. According to the patient's , he developed trouble breathing along with a cough. She denied having any fever or chills. He did have increased lower extremity edema which is improved today. She denies that he has had any falls. He normally uses a cane for ambulation but also has a walker available. Patient came into [facility] emergency center for evaluation. He has been afebrile, heart rate running in the 50s and 60s, initial blood pressure 152/91 and pulse ox 97% on room air. White count normal, hemoglobin 9.7, BUN 26 and creatinine 1.31. Troponin 0.0 to 40.027. ProBNP 3510. Chest x- ray showed mild heart failure with small right pleural effusion and basilar mild infiltrate and atelectasis compared to old exam. Patient has been started on IV Lasix 40 mg every 8 hours and admitted to the [facility] floor with consults for cardiology and pulmonary medicine. Echocardiogram from 04/2016 reveals EF 55 -60%, trace tricuspid regurgitation, moderate concentric left ventricular hypertrophy. 3: The patient is found sitting on the edge of his bed eating lunch. His is at the bedside. He states his breathing is much improved from yesterday. Patient's also agrees that he is improved from yesterday. Patient has been seen by cardiology and Lasix has been decreased to 40 mg twice daily. Repeat chest x-ray shows nearly resolved right basilar opacities likely representing minimal subsegmental residual atelectasis with persistent left trace pleural effusion left-sided airspace disease noted be chronic. Pulse ox 95% on room air. Patient is use CPAP during the night. He has been afebrile, repeat BUN 13 creatinine 1.46. Echocardiogram has been obtained by report is pending. Case management has been arrangements for home care. Anticipate discharge home tomorrow. Review Of Systems: Constitutional: No fever, no chills, no night sweats. No weight change. No weakness, fatigue or lethargy. No daytime sleepiness. EENT: No headache. No blurred vision or double vision, no loss of vision. No loss of Hearing, no ringing in the ears, no dizziness. No nasal drainage or congestion. No epistaxis. No sore throat. Lungs: Improved shortness of breath, reports cough, no sputum production. No wheezing. Cardiovascular: No chest pain, improved lower extremity edema. No palpitations. No paroxysmal nocturnal dyspnea. No orthopnea. No lightheadedness or dizziness. No syncopal episodes. Abdominal: No abdominal pain. No nausea, vomiting. No diarrhea. No constipation. No bloody or tarry stools.. No loss of appetite. Genitourinary: No dysuria, increased frequency, urgency. No urinary retention. Musculoskeletal: No myalgias. No muscle weakness, no gait dysfunction, no frequent falls. No back pain. No neck pain. Integumentary: No wounds, no lesions. No rash or pruritus. No unusual bruising. No change in hair or nails. Neurologic: No aphasia. No facial droop. No change in mentation. No head injury. No headache. No paralysis. No paresthesia. Psychiatric: No depression. No anxiety. No mood swings. Endocrine: No abnormal blood sugars. No weight change. Objective - Vital Signs Vital signs: Vital Signs Temp 98 F 03/07/18 07:00 Pulse 68 03/07/18 09:32 Resp 16 03/07/18 07:00 BP 138/58 03/07/18 07:00 Pulse Ox 95 03/07/18 07:00 Intake & Output 03/06/18 03/07/18 03/07/18 18:59 06:59 18:59 Intake Total 350 Output Total 350 350 Balance 350 -350 -350 Weight 120.202 kg Intake: Oral 350 Output: Urine 350 350 Other: Voiding Method Urinal Urinal # Voids 1 - Exam Gen: This is an 87-year-old male. He is sitting up on the edge of the bed and appears to be in no acute distress. He is pleasantly confused. HEENT: Head is atraumatic, normocephalic. Pupils equal, round. Sclerae is anicteric. NECK: Supple. No JVD. No lymphadenopathy. No thyromegaly. LUNGS: Clear to auscultation. No wheezes or rhonchi. No intercostal retractions. HEART: Irregularly irregular rate and rhythm. No murmur. ABDOMEN: Soft. Bowel sounds are present. No masses. No tenderness. EXTREMITIES: trace bilat pedal edema. No calf tenderness. NEUROLOGICAL: Patient is awake, alert and oriented to person and is pleasantly confused. Cranial nerves 2 through 12 are grossly intact. - Labs CBC & Chem 7: 03/07/18 07:34 03/07/18 07:34 Labs: Abnormal Lab Results - Last 24 Hours (Table) 03/06/18 03/06/18 03/06/18 Range/Units 11:29 16:54 19:39 RBC (4.30-5.90) m/uL Hgb (13.0-17.5) gm/dL Hct (39.0-53.0) % RDW (11.5-15.5) % Lymphocytes # (1.0-4.8) k/uL BUN (9-20) mg/dL Creatinine (0.66-1.25) mg/dL Glucose (74-99) mg/dL POC Glucose (mg/dL) 117 H 119 H 175 H (75-99) mg/dL 03/07/18 03/07/18 03/07/18 Range/Units 07:25 07:34 07:34 RBC 3.81 L (4.30-5.90) m/uL Hgb 10.1 L (13.0-17.5) gm/dL Hct 32.4 L (39.0-53.0) % RDW 16.2 H (11.5-15.5) % Lymphocytes # 0.6 L (1.0-4.8) k/uL BUN 30 H (9-20) mg/dL Creatinine 1.46 H (0.66-1.25) mg/dL Glucose 113 H (74-99) mg/dL POC Glucose (mg/dL) 125 H (75-99) mg/dL Microbiology - Last 24 Hours (Table) 03/05/18 23:10 Blood Culture - Preliminary Blood No Growth after 24 hours Assessment and Plan Plan: 1. Acute on chronic diastolic heart failure. Continue Lasix 40 mg IV every 12 hours, spironolactone 25 mg daily, Zaroxolyn 2.5 mg on Sunday, lisinopril 10 mg daily. Monitor I&O, daily weights, electrolytes and renal function. Cardiology consult appreciated. 2. Pleural effusion and possible infiltrate. Pulmonary consult added. Continue DuoNeb treatments, Pulmicort twice daily, Mucinex, Levaquin IV, metolazone, prednisone. 3. Chronic atrial fibrillation. Continue Coreg 6.25 mg twice daily and Eliquis. 4. Diabetes mellitus type 2. Continue glimepiride 0.5 mg daily and Humalog scale before meals and at bedtime. 5. History of chronic diastolic heart failure. Continue as in #1. 6. Hypertension. Continue Coreg 6.25 mg twice daily and lisinopril 10 mg daily. 7. Hyperlipidemia. Continue Lipitor. 8. Benign prostatic hypertrophy. Continue Flomax twice daily. 9. History of coronary artery disease. Continue aspirin 81 mg daily, Lipitor, Coreg. 10. Obstructive sleep apnea on CPAP. 11. Prostate cancer. Continue enzalutamide. Patient may take his medication from home. 12. Chronic kidney disease stage III, stable. Monitor renal function. 13. GI prophylaxis. Pepcid. 14. DVT prophylaxis. Eliquis. Discharge plan: Home tomorrow with [facility] Impression and plan of care have been directed as dictated by the signing physician. Sheyla George nurse practitioner acting as scribe for signing physician.
--- NOTE | 2018-03-07 14:32 | ECHOF ---
Referral Reason:sob, swelling MEASUREMENTS -------- HEIGHT: 182.9 cm WEIGHT: 120.2 kg BP: RVIDd: 3.0 cm (< 3.3) IVSd: 1.5 cm (0.6 - 1.1) LVIDd: 5.2 cm (3.9 - 5.3) LVPWd: 1.5 cm (0.6 - 1.1) IVSs: 2.1 cm LVIDs: 4.1 cm LVPWs: 1.7 cm LA Diam: 4.5 cm (2.7 - 3.8) Ao Diam: 4.0 cm (2.0 - 3.7) AV Cusp: 1.9 cm (1.5 - 2.6) LA Diam: 4.2 cm (2.7 - 3.8) MV EXCURSION: 19.371 mm (> 18.000) MV EF SLOPE: 108 mm/s (70 - 150) EPSS: 0.7 cm MV E Nicholas: 0.61 m/s MV DecT: 237 ms MV A Nicholas: 0.40 m/s MV E/A Ratio: 1.53 FINDINGS -------- Paced rhythm. Morbid Obesity This was a techncally difficult study with suboptimal views, , Lumason utilized for enhancement of images. The left ventricular size is normal. There is moderate concentric left ventricular hypertrophy. O verall left ventricular systolic function is low-normal with, an EF between 50 - 55 %. The right ventricle is normal in size. The left atrial size is normal. The right atrial size is normal. 5.0mg OF Lumason UTLIZED: 2 OR MORE WALL SEGMENTS NOT VISUALIZED. There is mild aortic valve sclerosis. There is no evidence of aortic regurgitation. Mild mitral annular calcification present. Mild mitral regurgitation is present. The tricuspid valve was not well visualized. Mild tricuspid regurgitation present. There is no ev idence of pulmonary hypertension. Unable to estimate RVSP due to inadequate TR jet spectral doppler profile. The pulmonic valve was not well visualized. The aortic root size is normal. Echo free space represents a pericardial fat pad. CONCLUSIONS -------- 1. Morbid Obesity 2. This was a techncally difficult study with suboptimal views, , Lumason utilized for enhancement of images. 3. The left ventricular size is normal. 4. There is moderate concentric left ventricular hypertrophy. 5. The right ventricle is normal in size. 6. The left atrial size is normal. 7. The right atrial size is normal. 8. 5.0mg OF Lumason UTLIZED: 2 OR MORE WALL SEGMENTS NOT VISUALIZED. 9. There is mild aortic valve sclerosis. 10. Mild mitral annular calcification present. 11. Mild mitral regurgitation is present. 12. The tricuspid valve was not well visualized. 13. Mild tricuspid regurgitation present. 14. There is no evidence of pulmonary hypertension. 15. Unable to estimate RVSP due to inadequate TR jet spectral doppler profile. 16. The pulmonic valve was not well visualized. 17. The aortic root size is normal. 18. Echo free space represents a pericardial fat pad. GREETING CARD MAKER: Jeanie Loza RDCS
[2018-03-07 17:34] LABS: Glucose,Whole Blood 124 mg/dL (75-99)
[2018-03-07] MEDS: ATORVASTATIN 20 MG TAB PO SCH (18:05)
[2018-03-07] MEDS: ISOSORBIDE MONONITRATE ER 60 MG TAB.ER.24H PO SCH (18:05)
[2018-03-07 20:48] LABS: Glucose,Whole Blood 112 mg/dL (75-99)
[2018-03-07 22:12] LABS: Hemoglobin A1C 5.5 % (4.0-6.0)
[2018-03-08 07:14] LABS: Glucose,Whole Blood 117 mg/dL (75-99)
[2018-03-08 07:37] LABS: Calcium 8.7 mg/dL (8.4-10.2); Potassium 3.8 mmol/L (3.5-5.1)
[2018-03-08] MEDS: INSULIN ASPART 100 UNIT/ML 1 ML 10 ML VIAL SQ SCH ×4 (07:58→21:50)
[2018-03-08] MEDS: GLIMEPIRIDE 0.5 MG TAB PO SCH (08:11)
[2018-03-08] MEDS: CARVEDILOL 6.25 MG TAB PO SCH ×2 (08:11→16:44)
[2018-03-08] MEDS: RIVASTIGMINE 13.3MG/24HR PATCH TRANSDERM SCH (08:11)
[2018-03-08] MEDS ORDERED: LEVOFLOXACIN 750MG-D5W PMX 750 MG in DEXTROSE/WATER 1 150ML.BAG IVPB SCH (09:00)
[2018-03-08] MEDS: BUDESONIDE 0.5 MG/2 ML NEBU INHALATION SCH ×2 (09:07→21:14)
[2018-03-08] MEDS: IPRATROPIUM-ALBUTEROL 3 ML NEB INHALATION SCH ×4 (09:07→21:15)
[2018-03-08 11:52] LABS: Glucose,Whole Blood 129 mg/dL (75-99)
[2018-03-08] MEDS: FAMOTIDINE 20 MG TAB PO SCH (12:04)
[2018-03-08] MEDS: FUROSEMIDE 10 MG/ML 4 ML VIAL IV SCH (12:04)
[2018-03-08] MEDS: POTASSIUM CHLORIDE ER 20 MEQ TAB.ER PO SCH (12:04)
[2018-03-08] MEDS: LACTOBACILLUS ACIDOPH & BULGAR 1 EACH PACKET PO SCH (12:05)
[2018-03-08] MEDS: predniSONE 20 MG TAB PO SCH ×2 (12:05→21:55)
[2018-03-08] MEDS: MULTIVITAMINS, THERA 1 EACH TAB PO SCH (12:05)
[2018-03-08] MEDS: CHOLECALCIFEROL 1,000 UNIT TAB PO SCH (12:06)
[2018-03-08] MEDS: SPIRONOLACTONE 25 MG TAB PO SCH (12:06)
[2018-03-08] MEDS: LISINOPRIL 10 MG TAB PO SCH (12:06)
[2018-03-08] MEDS: TAMSULOSIN 0.4 MG CAP.ER.24H PO SCH ×2 (12:07→21:55)
[2018-03-08] MEDS: APIXABAN 5 MG TAB PO SCH ×2 (12:07→21:55)
[2018-03-08] MEDS: ENZALUTAMIDE 160 MG PO SCH (12:21)
--- NOTE | 2018-03-08 13:36 | P.PN ---
Subjective This is a pleasant 87-year-old male past medical history significant for coronary artery disease status post bypass grafting as well as multiple angioplasties, paroxysmal atrial fibrillation on long-term anticoagulation, sick sinus syndrome status post permanent pacemaker implantation, diabetes mellitus, dyslipidemia, hypertension and chronic kidney disease. He follows with Dr. CANDELARIO Patrick in the office. He is currently maintained on lasix 40 mg BID. He continues to feel better daily. He denies any worsening shortness of breath, swelling in his legs has resolved completely. He denies chest pain, dizziness or palpitations. Weight is down 3 kg from admission. Blood pressure 169/93 heart rate 66 afebrile maintaining oxygen saturation on room air. Laboratory data reviewed, sodium 139, potassium 3.8, creatinine 1.46. HEENT: Head is atraumatic, normocephalic. Pupils are equal, round. Sclerae anicteric. Conjunctivae are clear. Mucous membranes of the mouth are moist. Neck is supple. There is mild jugular venous distention. No carotid bruit is heard. LUNGS: Faint bibasilar rales noted. No wheezes or rhonchi. No chest wall tenderness is noted on palpation or with deep breathing. HEART: Regular rate and rhythm with systolic ejection murmur at the base, no rubs or gallops. S1 and S2 heard. EXTREMITIES: No edema to left lower extremities. No calf tenderness. ASSESSMENT Acute on chronic diastolic heart failure Paroxysmal atrial fibrillation on long-term anticoagulation Coronary artery disease status post bypass grafting Sick sinus syndrome status post permanent pacemaker implantation Diabetes mellitus Dyslipidemia Hypertension Chronic kidney disease PLAN Transitioned to oral diuretics, 40 mg by mouth twice a day. Stable from a cardiac perspective. We will continue to follow as needed. Follow-up with Dr. Patrick upon discharge. Nurse Practitioner note has been reviewed, I agree with a documented findings and plan of care. Patient was seen and examined. Objective - Vital Signs Vital signs: Vital Signs Temp 97.7 F 03/08/18 07:51 Pulse 72 03/08/18 13:22 Resp 18 03/08/18 07:51 BP 169/93 03/08/18 07:51 Pulse Ox 95 03/08/18 07:51 Intake & Output 03/07/18 03/08/18 03/08/18 18:59 06:59 18:59 Output Total 350 300 Balance -350 -300 Weight 117.027 kg Output: Urine 350 300 Other: Voiding Method Urinal # Voids 5 - Labs CBC & Chem 7: 03/07/18 07:34 03/08/18 06:48 Labs: Abnormal Lab Results - Last 24 Hours (Table) 03/07/18 03/07/18 03/08/18 Range/Units 17:20 20:37 06:48 Carbon Dioxide 34 H (22-30) mmol/L BUN 31 H (9-20) mg/dL Creatinine 1.46 H (0.66-1.25) mg/dL Glucose 105 H (74-99) mg/dL POC Glucose (mg/dL) 124 H 112 H (75-99) mg/dL 03/08/18 03/08/18 Range/Units 07:02 11:40 Carbon Dioxide (22-30) mmol/L BUN (9-20) mg/dL Creatinine (0.66-1.25) mg/dL Glucose (74-99) mg/dL POC Glucose (mg/dL) 117 H 129 H (75-99) mg/dL Microbiology - Last 24 Hours (Table) 03/05/18 23:10 Blood Culture - Preliminary Blood No Growth after 48 hours
--- NOTE | 2018-03-08 14:19 | P.PN ---
Subjective Progress Note Date: 03/08/18 HPI: This is an 87-year-old male patient well-known to our services. This patient was brought into the ER after his son have a low oxygen level by his home nurse. He had exertional dyspnea and some shortness of breath when he had conversation or talk in sentences. He subsequently came into the ER for further evaluation and treatment and was admitted for further evaluation and management. He does have a past medical history positive for obstructive sleep apnea for which she wears CPAP, CHF, prostate cancer, CAD with previous CABG, esophageal dilation, pacemaker, and dementia. He has been out life long nonsmoker. He has a poor historian. Family at bedside Interval history: 03/07/2018patient is being seen examined and evaluated today for follow-up on rounds. His chest x-ray from today is improved and is resolving right basilar opacity and shows the persistent left trace pleural effusion. The patient's feels his breathing has been much better. He has been diuresed and has had adequate output. He does use his CPAP from home at each night. His echocardiogram is pending. He states he still feels weak and continues to have some shortness of breath with exertion and activity. Currently he is on room air. Cardiology is also following with the patient. He is afebrile no further complaints. 03/08/2018 patient is being seen examined and evaluated today on rounds. He is resting up in bed on room air. He states he feels tired and weak today, he didn't get much sleep last night. His breathing has remained stable. He does get short of breath with exertion and activity. He continues on his antibiotics , and steroids. He is updated on plan of care. Discharge planning underway, the patient does have home health care. Afebrile, all labs and reports have been reviewed Objective - Vital Signs Vital signs: Vital Signs Temp 97.7 F 03/08/18 07:51 Pulse 72 03/08/18 13:34 Resp 18 03/08/18 07:51 BP 169/93 03/08/18 07:51 Pulse Ox 95 03/08/18 07:51 Intake & Output 03/07/18 03/08/18 03/08/18 18:59 06:59 18:59 Output Total 350 300 Balance -350 -300 Weight 117.027 kg Output: Urine 350 300 Other: Voiding Method Urinal # Voids 5 - Exam GENERAL EXAM: Alert, comfortable in no apparent distress. HEAD: Normocephalic. EYES: Normal reaction of pupils, equal size. NOSE: Clear with pink turbinates. THROAT: No erythema or exudates. NECK: No masses, no JVD. CHEST: No chest wall deformity. LUNGS: Lungs noted to be somewhat coarse throughout with some faint basilar crackles. CVS: S1 and S2 normal with no audible mumurs, regular rhythm. ABDOMEN: No hepatosplenomegaly, normal bowel sounds, no guarding or rigidity. EXTREMITIES: +1 edema noted, pedal pulses palpable, edema improving. CENTRAL NERVOUS SYSTEM: No focal deficits, tone is normal in all 4 extremities. - Labs CBC & Chem 7: 03/07/18 07:34 03/08/18 06:48 Labs: Abnormal Lab Results - Last 24 Hours (Table) 03/07/18 03/07/18 03/08/18 Range/Units 17:20 20:37 06:48 Carbon Dioxide 34 H (22-30) mmol/L BUN 31 H (9-20) mg/dL Creatinine 1.46 H (0.66-1.25) mg/dL Glucose 105 H (74-99) mg/dL POC Glucose (mg/dL) 124 H 112 H (75-99) mg/dL 03/08/18 03/08/18 Range/Units 07:02 11:40 Carbon Dioxide (22-30) mmol/L BUN (9-20) mg/dL Creatinine (0.66-1.25) mg/dL Glucose (74-99) mg/dL POC Glucose (mg/dL) 117 H 129 H (75-99) mg/dL Microbiology - Last 24 Hours (Table) 03/05/18 23:10 Blood Culture - Preliminary Blood No Growth after 48 hours Assessment and Plan Assessment: Assessment Acute hypoxic respiratory failure requiring supplemental oxygen Acute exacerbation of CHF Obstructive sleep apnea on CPAP Atrial fibrillation Cannot rule out early pneumonia at this point Plan Medications have been reviewed and will be continued as ordered. Continue with antibiotics Continue with diuresis cardiology on consult Continue with pulmonary hygiene, coughing and deep breathing exercises, and supportive care. Supplemental oxygen to maintain oxygen saturations of 92% or better. Continue nebulizer treatments. Initiate and encourage incentive spirometer and flutter valve Obtain sputum culture home CPAP and use each night and when needed Increase activity as tolerated PT and OT GI and DVT prophylaxis. We will continue to monitor labs/results and adjust treatment as necessary. Further recommendations pending. I, the signing physician performed an examination of the patient, discussed and directed their management with the nurse practitioner. I have reviewed the nurse practitioner's note and agree with the documented findings, orders and plan of care. Nurse practitioner acting as a scribe for the signing physician.
--- NOTE | 2018-03-08 14:38 | P.PN ---
Subjective Progress Note Date: 03/08/18 This is an 87-year-old male. His primary care physician is Dr. Mercer and vb net programmer is Dr. CANDELARIO Patrick. He has a past medical history of coronary artery disease with prior coronary artery stenting, diabetes mellitus type 2, hypertension, hyperlipidemia, chronic atrial fibrillation on Eliquis, chronic diastolic heart failure, obstructive sleep apnea with CPAP, gastroesophageal reflux disease, dementia, prostate cancer. Patient is unable to provide details of his presentation to the hospital due to underlying dementia. According to the patient's , he developed trouble breathing along with a cough. She denied having any fever or chills. He did have increased lower extremity edema which is improved today. She denies that he has had any falls. He normally uses a cane for ambulation but also has a walker available. Patient came into [facility] emergency center for evaluation. He has been afebrile, heart rate running in the 50s and 60s, initial blood pressure 152/91 and pulse ox 97% on room air. White count normal, hemoglobin 9.7, BUN 26 and creatinine 1.31. Troponin 0.0 to 40.027. ProBNP 3510. Chest x- ray showed mild heart failure with small right pleural effusion and basilar mild infiltrate and atelectasis compared to old exam. Patient has been started on IV Lasix 40 mg every 8 hours and admitted to the [facility] floor with consults for cardiology and pulmonary medicine. Echocardiogram from 04/2016 reveals EF 55 -60%, trace tricuspid regurgitation, moderate concentric left ventricular hypertrophy. 03/07: The patient is found sitting on the edge of his bed eating lunch. His is at the bedside. He states his breathing is much improved from yesterday. Patient's also agrees that he is improved from yesterday. Patient has been seen by cardiology and Lasix has been decreased to 40 mg twice daily. Repeat chest x-ray shows nearly resolved right basilar opacities likely representing minimal subsegmental residual atelectasis with persistent left trace pleural effusion left-sided airspace disease noted be chronic. Pulse ox 95% on room air. Patient is use CPAP during the night. He has been afebrile, repeat BUN 13 creatinine 1.46. Echocardiogram has been obtained by report is pending. Case management has been arrangements for home care. Anticipate discharge home tomorrow. 03/08: Patient had episode of dizziness yesterday was standing at dinnertime. His vital signs were stable. Most likely secondary to orthostatic changes. Patient is noted to have decreased pedal edema. He has been switched over to oral Lasix 40 mg twice daily. Levaquin has also been changed to oral. Pulse ox is 95% on room air, he has been afebrile. BUN 31 and creatinine 1.46. Plan is to monitor him overnight and plan for discharge tomorrow. Review Of Systems: Constitutional: No fever, no chills, no night sweats. No weight change. No weakness, fatigue or lethargy. No daytime sleepiness. EENT: No headache. No blurred vision or double vision, no loss of vision. No loss of Hearing, no ringing in the ears, no dizziness. No nasal drainage or congestion. No epistaxis. No sore throat. Lungs: Improved shortness of breath, reports cough, no sputum production. No wheezing. Cardiovascular: No chest pain, improved lower extremity edema. No palpitations. No paroxysmal nocturnal dyspnea. No orthopnea. No lightheadedness or dizziness. No syncopal episodes. Abdominal: No abdominal pain. No nausea, vomiting. No diarrhea. No constipation. No bloody or tarry stools.. No loss of appetite. Genitourinary: No dysuria, increased frequency, urgency. No urinary retention. Musculoskeletal: No myalgias. No muscle weakness, no gait dysfunction, no frequent falls. No back pain. No neck pain. Integumentary: No wounds, no lesions. No rash or pruritus. No unusual bruising. No change in hair or nails. Neurologic: No aphasia. No facial droop. No change in mentation. No head injury. No headache. No paralysis. No paresthesia. Psychiatric: No depression. No anxiety. No mood swings. Endocrine: No abnormal blood sugars. No weight change. Objective - Vital Signs Vital signs: Vital Signs Temp 97.7 F 03/08/18 07:51 Pulse 72 03/08/18 13:34 Resp 18 03/08/18 07:51 BP 169/93 03/08/18 07:51 Pulse Ox 95 03/08/18 07:51 Intake & Output 03/07/18 03/08/18 03/08/18 18:59 06:59 18:59 Output Total 350 300 Balance -350 -300 Weight 117.027 kg Output: Urine 350 300 Other: Voiding Method Urinal # Voids 5 - Exam Gen: This is an 87-year-old male. He is sitting up in bed and appears to be in no acute distress. He is pleasantly confused. HEENT: Head is atraumatic, normocephalic. Pupils equal, round. Sclerae is anicteric. NECK: Supple. No JVD. No lymphadenopathy. No thyromegaly. LUNGS: Clear to auscultation. No wheezes or rhonchi. No intercostal retractions. HEART: Irregularly irregular rate and rhythm. No murmur. ABDOMEN: Soft. Bowel sounds are present. No masses. No tenderness. EXTREMITIES: trace bilat pedal edema. No calf tenderness. NEUROLOGICAL: Patient is awake, alert and oriented to person and is pleasantly confused. Cranial nerves 2 through 12 are grossly intact. - Labs CBC & Chem 7: 03/07/18 07:34 03/08/18 06:48 Labs: Abnormal Lab Results - Last 24 Hours (Table) 03/07/18 03/07/18 03/08/18 Range/Units 17:20 20:37 06:48 Carbon Dioxide 34 H (22-30) mmol/L BUN 31 H (9-20) mg/dL Creatinine 1.46 H (0.66-1.25) mg/dL Glucose 105 H (74-99) mg/dL POC Glucose (mg/dL) 124 H 112 H (75-99) mg/dL 03/08/18 03/08/18 Range/Units 07:02 11:40 Carbon Dioxide (22-30) mmol/L BUN (9-20) mg/dL Creatinine (0.66-1.25) mg/dL Glucose (74-99) mg/dL POC Glucose (mg/dL) 117 H 129 H (75-99) mg/dL Microbiology - Last 24 Hours (Table) 03/05/18 23:10 Blood Culture - Preliminary Blood No Growth after 48 hours Assessment and Plan Plan: 1. Acute on chronic diastolic heart failure. Continue Lasix 40 mg IV changed to oral every 12 hours, continue spironolactone 25 mg daily, Zaroxolyn 2.5 mg on Sunday, lisinopril 10 mg daily. Monitor I&O, daily weights, electrolytes and renal function. Cardiology consult appreciated. 2. Pleural effusion and possible infiltrate. Pulmonary consult added. Continue DuoNeb treatments, Pulmicort twice daily, Mucinex, Levaquin, metolazone , prednisone. 3. Chronic atrial fibrillation. Continue Coreg 6.25 mg twice daily and Eliquis. 4. Diabetes mellitus type 2. Continue glimepiride 0.5 mg daily and Humalog scale before meals and at bedtime. 5. History of chronic diastolic heart failure. Continue as in #1. 6. Hypertension. Continue Coreg 6.25 mg twice daily and lisinopril 10 mg daily. 7. Hyperlipidemia. Continue Lipitor. 8. Benign prostatic hypertrophy. Continue Flomax twice daily. 9. History of coronary artery disease. Continue aspirin 81 mg daily, Lipitor, Coreg. 10. Obstructive sleep apnea on CPAP. 11. Prostate cancer. Continue enzalutamide. Patient may take his medication from home. 12. Chronic kidney disease stage III, stable. Monitor renal function. 13. GI prophylaxis. Pepcid. 14. DVT prophylaxis. Eliquis. Discharge plan: Home Sunday with [facility] [employer] home care Impression and plan of care have been directed as dictated by the signing physician. Sheyla George nurse practitioner acting as scribe for signing physician.
[2018-03-08] MEDS: ISOSORBIDE MONONITRATE ER 60 MG TAB.ER.24H PO SCH (16:44)
[2018-03-08] MEDS: CYANOCOBALAMIN 500 MCG TAB PO SCH (16:44)
[2018-03-08] MEDS: ATORVASTATIN 20 MG TAB PO SCH (16:44)
[2018-03-08] MEDS: ALLOPURINOL 100 MG TAB PO SCH (16:45)
[2018-03-08 17:05] LABS: Glucose,Whole Blood 138 mg/dL (75-99)
[2018-03-08] MEDS: FUROSEMIDE 40 MG TAB PO SCH (17:45)
[2018-03-08 20:20] LABS: Glucose,Whole Blood 129 mg/dL (75-99)
[2018-03-08 22:12] VITALS: RESP 16
[2018-03-09 06:48] LABS: Glucose,Whole Blood 119 mg/dL (75-99)
[2018-03-09 08:14] LABS: HCT 32.8 % (39.0-53.0); HGB 10.4 gm/dL (13.0-17.5); Hypochromasia Slight; MCH 26.8 pg (25.0-35.0); MCHC 31.6 g/dL (31.0-37.0); MCV 84.6 fL (80.0-100.0); Mean Platelet Volume 7.4; Platelet Count 218 k/uL (150-450); RBC 3.87 m/uL (4.30-5.90); RDW 15.9 % (11.5-15.5)
[2018-03-09 08:33] LABS: Calcium 8.8 mg/dL (8.4-10.2); Potassium 3.5 mmol/L (3.5-5.1)
[2018-03-09] MEDS: CARVEDILOL 6.25 MG TAB PO SCH (08:56)
[2018-03-09] MEDS: TAMSULOSIN 0.4 MG CAP.ER.24H PO SCH (08:56)
[2018-03-09] MEDS: APIXABAN 5 MG TAB PO SCH (08:56)
[2018-03-09] MEDS: predniSONE 20 MG TAB PO SCH (08:56)
[2018-03-09] MEDS: SPIRONOLACTONE 25 MG TAB PO SCH (08:56)
[2018-03-09] MEDS: CHOLECALCIFEROL 1,000 UNIT TAB PO SCH (08:56)
[2018-03-09] MEDS: LISINOPRIL 10 MG TAB PO SCH (08:56)
[2018-03-09] MEDS: FAMOTIDINE 20 MG TAB PO SCH (08:56)
[2018-03-09] MEDS: FUROSEMIDE 40 MG TAB PO SCH (08:57)
[2018-03-09] MEDS: GLIMEPIRIDE 0.5 MG TAB PO SCH (08:57)
[2018-03-09] MEDS: INSULIN ASPART 100 UNIT/ML 1 ML 10 ML VIAL SQ SCH (08:57)
[2018-03-09] MEDS: RIVASTIGMINE 13.3MG/24HR PATCH TRANSDERM SCH (08:57)
[2018-03-09] MEDS: IPRATROPIUM-ALBUTEROL 3 ML NEB INHALATION SCH (09:19)
[2018-03-09] MEDS: BUDESONIDE 0.5 MG/2 ML NEBU INHALATION SCH (09:19)
[2018-03-09 10:19] VITALS: BP 161/84; PULSE 80; TEMP 98.1
[2018-03-09] MEDS ORDERED: ACETAMINOPHEN TAB 325 MG TAB PO PRN (10:30)
[2018-03-09 11:50] LABS: Glucose,Whole Blood 168 mg/dL (75-99)
--- NOTE | 2018-03-09 13:03 | P.DS ---
Providers Date of admission: 03/06/18 00:26 Expected date of discharge: 03/09/18 Attending physician: Loi Mercer Consults: 03/06/18 00:20 Consult Physician Routine Consulting Provider: Breanna Knowles Consult Reason/Comments: chf Do you want consulting provider notified?: Yes 03/06/18 11:40 Consult Physician Routine Consulting Provider: Osmani Patrick Consult Reason/Comments: pneumonia Do you want consulting provider notified?: Yes Primary care physician: [facility] Course: This is an 87-year-old male. His primary care physician is Dr. Mercer and cook camp is Dr. CANDELARIO Patrick. He has a past medical history of coronary artery disease with prior coronary artery stenting, diabetes mellitus type 2, hypertension, hyperlipidemia, chronic atrial fibrillation on Eliquis, chronic diastolic heart failure, obstructive sleep apnea with CPAP, gastroesophageal reflux disease, dementia, prostate cancer. Patient is unable to provide details of his presentation to the hospital due to underlying dementia. According to the patient's , he developed trouble breathing along with a cough. She denied having any fever or chills. He did have increased lower extremity edema which is improved today. She denies that he has had any falls. He normally uses a cane for ambulation but also has a walker available. Patient came into [facility] emergency center for evaluation. He has been afebrile, heart rate running in the 50s and 60s, initial blood pressure 152/91 and pulse ox 97% on room air. White count normal, hemoglobin 9.7, BUN 26 and creatinine 1.31. Troponin 0.0 to 40.027. ProBNP 3510. Chest x- ray showed mild heart failure with small right pleural effusion and basilar mild infiltrate and atelectasis compared to old exam. Patient has been started on IV Lasix 40 mg every 8 hours and admitted to the [facility] floor with consults for cardiology and pulmonary medicine. Echocardiogram from 04/2016 reveals EF 55 -60%, trace tricuspid regurgitation, moderate concentric left ventricular hypertrophy. 3: The patient is found sitting on the edge of his bed eating lunch. His is at the bedside. He states his breathing is much improved from yesterday. Patient's also agrees that he is improved from yesterday. Patient has been seen by cardiology and Lasix has been decreased to 40 mg twice daily. Repeat chest x-ray shows nearly resolved right basilar opacities likely representing minimal subsegmental residual atelectasis with persistent left trace pleural effusion left-sided airspace disease noted be chronic. Pulse ox 95% on room air. Patient is use CPAP during the night. He has been afebrile, repeat BUN 13 creatinine 1.46. Echocardiogram has been obtained by report is pending. Case management has been arrangements for home care. Anticipate discharge home tomorrow. 03/08: Patient had episode of dizziness yesterday was standing at dinnertime. His vital signs were stable. Most likely secondary to orthostatic changes. Patient is noted to have decreased pedal edema. He has been switched over to oral Lasix 40 mg twice daily. Levaquin has also been changed to oral. Pulse ox is 95% on room air, he has been afebrile. BUN 31 and creatinine 1.46. Plan is to monitor him overnight and plan for discharge tomorrow. 03/09: Patient continues to have improvement of his respiratory status. His is at the bedside. No noted problems overnight from nursing staff. Patient has been afebrile, pulse ox 95% on room air. WBC 7.0, hemoglobin 10.4, platelet count 218, BUN 36 creatinine 1.30. Patient will be discharged home today in stable condition. Discharge diagnoses: 1. Acute on chronic diastolic heart failure. 2. Pleural effusion and possible infiltrate. 3. Chronic atrial fibrillation. 4. Diabetes mellitus type 2. 5. History of chronic diastolic heart failure. 6. Hypertension. 7. Hyperlipidemia. 8. Benign prostatic hypertrophy. 9. History of coronary artery disease. 10. Obstructive sleep apnea on CPAP. 11. Prostate cancer. 12. Chronic kidney disease stage III, stable. Discharge plan: Home with [facility] home [facility] Impression and plan of care have been directed as dictated by the signing physician. Sheyla George nurse practitioner acting as scribe for signing physician. Patient Condition at Discharge: Good Plan - Discharge Summary Discharge Rx Participant: No New Discharge Prescriptions: New RX: Levofloxacin [Levaquin] 750 mg PO Q48H #3 tab RX: Spironolactone [Aldactone] 25 mg PO DAILY #30 tab RX: Furosemide [Lasix] 40 mg PO BID@0900,1600 #60 tab Continue RX: Albuterol Nebulized [Ventolin Nebulized] 2.5 mg INHALATION RT-QID PRN PRN Reason: Shortness Of Breath RX: Atorvastatin Calcium [Lipitor] 20 mg PO W/SUPPER RX: Calcium/Magnesium/Zinc [Giurrzv-Zunleyoys-Jxby Tablet] 1 tab PO DAILY@ 1200 RX: Carvedilol [Coreg] 6.25 mg PO BID RX: Colchicine [Colcrys] 0.6 mg PO DAILY@1200 PRN PRN Reason: GOUT RX: Isosorbide Mononitrate ER [Imdur] 60 mg PO W/SUPPER RX: Krill Oil 500 mg PO DAILY@1200 RX: L.acidoph,Paracasei, B.lactis [Probiotic] 1 cap PO DAILY@1200 RX: Metolazone [Zaroxolyn] 2.5 mg PO SUTUTH RX: Multivitamins, Thera [Multivitamin (formulary)] 1 tab PO DAILY@1200 RX: Tamsulosin HCl [Flomax] 0.4 mg PO BID RX: Cholecalciferol [Vitamin D3] 2,000 unit PO QAM RX: Glimepiride [Amaryl] 0.5 mg PO AC-BRKFST #0 RX: Cyanocobalamin (Vitamin B-12) [Vitamin B12] 5,000 mcg PO DAILY@1200 RX: Febuxostat [Uloric] 40 mg PO DAILY@1200 RX: Rivastigmine [Exelon 13.3MG/24Hr Patch] 1 patch TRANSDERM DAILY RX: Cranberry Fruit Extract [Cranberry] 500 mg PO DAILY RX: Nitroglycerin Sl Tabs [Nitrostat] 0.4 mg SUBLINGUAL Q5M PRN PRN Reason: Chest Pain RX: Enzalutamide [Xtandi] 160 mg PO DAILY@1200 RX: Budesonide [Pulmicort] 0.5 mg PO RT-BID RX: Apixaban [Eliquis] 5 mg PO BID RX: guaiFENesin [Mucinex] 600 mg PO Q12H PRN PRN Reason: Congestion RX: Docusate [Colace] 100 mg PO DAILY PRN PRN Reason: Constipation RX: Ubidecarenone [Co Q-10] 100 mg PO W/SUPPER RX: Albuterol Nebulized [Ventolin Nebulized] 2.5 mg INHALATION RT-Q4H PRN PRN Reason: Shortness Of Breath RX: Potassium Chloride ER [K-Dur 20] 20 meq PO DAILY@1200 RX: Lisinopril [Zestril] 10 mg PO DAILY RX: predniSONE 20 mg PO BID #10 tab Discontinued RX: Furosemide [Lasix] 40 mg PO DAILY Discharge Medication List RX: Albuterol Nebulized [Ventolin Nebulized] 2.5 mg INHALATION RT-QID PRN [History] RX: Atorvastatin Calcium [Lipitor] 20 mg PO W/SUPPER 11/12/15 [History] RX: Calcium/Magnesium/Zinc [Nalcywa-Qjoncyfmb-Nigh Tablet] 1 tab PO DAILY@1200 11/12/15 [History] RX: Carvedilol [Coreg] 6.25 mg PO BID 11/12/15 [History] RX: Colchicine [Colcrys] 0.6 mg PO DAILY@1200 PRN 11/12/15 [History] RX: Isosorbide Mononitrate ER [Imdur] 60 mg PO W/SUPPER 11/12/15 [History] RX: Krill Oil 500 mg PO DAILY@1200 11/12/15 [History] RX: L.acidoph,Paracasei, B.lactis [Probiotic] 1 cap PO DAILY@1200 11/12/15 [ History] RX: Metolazone [Zaroxolyn] 2.5 mg PO SUTUTH 11/12/15 [History] RX: Multivitamins, Thera [Multivitamin (formulary)] 1 tab PO DAILY@1200 [History] RX: Tamsulosin HCl [Flomax] 0.4 mg PO BID 11/12/15 [History] RX: Cholecalciferol [Vitamin D3] 2,000 unit PO QAM 04/07/16 [History] RX: Glimepiride [Amaryl] 0.5 mg PO AC-BRKFST #0 04/15/16 [Rx] RX: Cranberry Fruit Extract [Cranberry] 500 mg PO DAILY 04/17/17 [History] RX: Cyanocobalamin (Vitamin B-12) [Vitamin B12] 5,000 mcg PO DAILY@1200 [History] RX: Febuxostat [Uloric] 40 mg PO DAILY@1200 04/17/17 [History] RX: Nitroglycerin Sl Tabs [Nitrostat] 0.4 mg SUBLINGUAL Q5M PRN 04/17/17 [ History] RX: Rivastigmine [Exelon 13.3MG/24Hr Patch] 1 patch TRANSDERM DAILY 04/17/17 [ History] RX: Apixaban [Eliquis] 5 mg PO BID 10/03/17 [History] RX: Budesonide [Pulmicort] 0.5 mg PO RT-BID 10/03/17 [History] RX: Enzalutamide [Xtandi] 160 mg PO DAILY@1200 10/03/17 [History] RX: Albuterol Nebulized [Ventolin Nebulized] 2.5 mg INHALATION RT-Q4H PRN [History] RX: Docusate [Colace] 100 mg PO DAILY PRN 11/07/17 [History] RX: Lisinopril [Zestril] 10 mg PO DAILY 11/07/17 [History] RX: Potassium Chloride ER [K-Dur 20] 20 meq PO DAILY@1200 11/07/17 [History] RX: Ubidecarenone [Co Q-10] 100 mg PO W/SUPPER 11/07/17 [History] RX: guaiFENesin [Mucinex] 600 mg PO Q12H PRN 11/07/17 [History] RX: predniSONE 20 mg PO BID #10 tab 11/07/17 [Rx] RX: Furosemide [Lasix] 40 mg PO BID@0900,1600 #60 tab 03/09/18 [Rx] RX: Levofloxacin [Levaquin] 750 mg PO Q48H #3 tab 03/09/18 [Rx] RX: Spironolactone [Aldactone] 25 mg PO DAILY #30 tab 03/09/18 [Rx] Follow up Appointment(s)/Referral(s): Kandy Patrick MD [STAFF PHYSICIAN] - 1 Week Loi Mercer MD [Primary Care Provider] - 1-2 days (Daughter has the appointement Time) [facility], [REFERRING] - Osmani Patrick MD [STAFF PHYSICIAN] - 03/15/18 3:15 pm (At [address] ) Patient Instructions/Handouts: COPD (Chronic Obstructive Pulmonary Disease) (DC )
[2018-03-10] MEDS ORDERED: LEVOFLOXACIN 750 MG TAB PO SCH (09:00)
== END 2018-03-09 12:20 | disposition home health service (06) | DRG 291 ==
LOC: EC 22:30 → 4SSUR 03-06 00:26
PROVIDERS: ADMIT Internal Medicine Geriatric Medicine; ATTEND Internal Medicine Geriatric Medicine
DX: I13.0 Hypertensive heart and chronic kidney disease with heart failure and stage 1 through stage 4 chronic kidney disease, or unspecified chronic kidney disease (principal); I50.33 Acute on chronic diastolic (congestive) heart failure; J18.9 Pneumonia, unspecified organism; J96.01 Acute respiratory failure with hypoxia; J44.0 Chronic obstructive pulmonary disease with (acute) lower respiratory infection; J44.1 Chronic obstructive pulmonary disease with (acute) exacerbation; J98.11 Atelectasis; I25.810 Atherosclerosis of coronary artery bypass graft(s) without angina pectoris; C61 Malignant neoplasm of prostate; E11.22 Type 2 diabetes mellitus with diabetic chronic kidney disease; E78.5 Hyperlipidemia, unspecified; F03.90 Unspecified dementia, unspecified severity, without behavioral disturbance, psychotic disturbance, mood disturbance, and anxiety; F41.9 Anxiety disorder, unspecified; G47.33 Obstructive sleep apnea (adult) (pediatric); I44.0 Atrioventricular block, first degree; I48.0 Paroxysmal atrial fibrillation; K21.9 Gastro-esophageal reflux disease without esophagitis; N18.3 Chronic kidney disease, stage 3 (moderate); N40.0 Benign prostatic hyperplasia without lower urinary tract symptoms; M10.9 Gout, unspecified; M19.90 Unspecified osteoarthritis, unspecified site; M21.371 Foot drop, right foot; R01.1 Cardiac murmur, unspecified; R42 Dizziness and giddiness; L89.312 Pressure ulcer of right buttock, stage 2; I49.3 Ventricular premature depolarization; Z79.01 Long term (current) use of anticoagulants; Z79.52 Long term (current) use of systemic steroids; Z79.899 Other long term (current) drug therapy; Z87.01 Personal history of pneumonia (recurrent); Z95.0 Presence of cardiac pacemaker; Z95.1 Presence of aortocoronary bypass graft; Z95.5 Presence of coronary angioplasty implant and graft; Z90.49 Acquired absence of other specified parts of digestive tract; Z92.3 Personal history of irradiation; Z83.3 Family history of diabetes mellitus
CPT/HCPCS: 36415; 71046; 80048; 80053; 82308; 82550; 82553; 83036; 83735; 83880; 84484; 85025; 85027; 85610; 85730; 87040; 93005; 93306; 94640; 94667; 94760; 96365; 96367; 99285

== ENCOUNTER 2018-03-18 14:39 | Observation (INO) | payer MEDICARE ==
[2018-03-18] MEDS ORDERED: SODIUM CHLORIDE 0.9% 1,000 ML IV STA (14:53)
--- NOTE | 2018-03-18 14:57 | ED ---
General Adult HPI - General Chief complaint: Dizziness Stated complaint: hypotension Time Seen by Provider: 03/18/18 14:45 Source: patient, EMS, RN notes reviewed Mode of arrival: EMS Limitations: no limitations - History of Present Illness Initial comments: Patient is a pleasant 87-year-old male presenting to emergency department from Dr. Patrick's office. Concern is that patient may have received 2 much diuresis. Patient reportedly had a low blood pressure at the manager statistical office. Patient has no new complaints at this time. Patient does admit to having some back pain however states chronic and unchanged. Patient states he does have chronic leg weakness secondary to his back problems. No chest pain or dyspnea. Patient denies confusion or isolated area of new weakness. - Related Data Home Medications Medication Instructions Recorded Confirmed Albuterol Nebulized [Ventolin 2.5 mg INHALATION RT-QID PRN 11/12/15 03/18/18 Nebulized] Atorvastatin Calcium [Lipitor] 20 mg PO AC-SUPPER 11/12/15 03/18/18 Calcium/Magnesium/Zinc 1 tab PO DAILY@1200 11/12/15 03/18/18 [Umzsxpo-Imymymqhk-Nwbl Tablet] Carvedilol [Coreg] 3.125 mg PO BID 11/12/15 03/18/18 Colchicine [Colcrys] 0.6 mg PO DAILY@1200 PRN 11/12/15 03/18/18 Isosorbide Mononitrate ER [Imdur] 60 mg PO AC-SUPPER 11/12/15 03/18/18 Krill Oil 500 mg PO DAILY@1200 11/12/15 03/18/18 L.acidoph,Paracasei, B.lactis 1 cap PO DAILY@1200 11/12/15 03/05/18 [Probiotic] Metolazone [Zaroxolyn] 2.5 mg PO SUTUTH 11/12/15 03/18/18 Multivitamins, Thera [Multivitamin 1 tab PO DAILY@1200 11/12/15 03/18/18 (formulary)] Tamsulosin HCl [Flomax] 0.4 mg PO AC-SUPPER 11/12/15 03/18/18 Cholecalciferol [Vitamin D3] 2,000 unit PO DAILY 04/07/16 03/18/18 Cranberry Fruit Extract [Cranberry] 500 mg PO DAILY 04/17/17 03/18/18 Cyanocobalamin (Vitamin B-12) 5,000 mcg PO DAILY@1200 04/17/17 03/18/18 [Vitamin B12] Febuxostat [Uloric] 40 mg PO DAILY@1200 04/17/17 03/18/18 Apixaban [Eliquis] 2.5 mg PO BID 10/03/17 03/18/18 Budesonide [Pulmicort] 0.5 mg PO RT-BID 10/03/17 03/18/18 Enzalutamide [Xtandi] 160 mg PO DAILY@1200 10/03/17 03/18/18 Docusate [Colace] 100 mg PO BID 11/07/17 03/18/18 Potassium Chloride ER [K-Dur 20] 20 meq PO DAILY@1200 11/07/17 03/18/18 Ubidecarenone [Co Q-10] 100 mg PO AC-SUPPER 11/07/17 03/18/18 guaiFENesin [Mucinex] 600 mg PO Q12H PRN 11/07/17 03/18/18 Ferrous Sulfate [Feosol] 325 mg PO DAILY 03/18/18 03/18/18 Fluticasone/Vilanterol [Breo 1 puff INHALATION RT-DAILY 03/18/18 03/18/18 Ellipta 100-25 Mcg Inhaler] Furosemide [Lasix] 20 mg PO HS 03/18/18 03/18/18 Furosemide [Lasix] 40 mg PO DAILY@0800 03/18/18 03/18/18 Lisinopril [Zestril] 10 mg PO DAILY 03/18/18 03/18/18 Spironolactone [Aldactone] 12.5 mg PO DAILY 03/18/18 03/18/18 Previous Rx's Medication Instructions Recorded Glimepiride [Amaryl] 0.5 mg PO AC-BRKFST #0 04/15/16 Allergies Allergy/AdvReac Type Severity Reaction Status Date / Time Penicillins Allergy Unknown Verified 03/18/18 16:00 Review of Systems ROS Statement: Those systems with pertinent positive or pertinent negative responses have been documented in the HPI. ROS Other: All systems not noted in ROS Statement are negative. Constitutional: Denies: fever Eyes: Denies: eye pain ENT: Denies: ear pain Respiratory: Denies: dyspnea Cardiovascular: Denies: chest pain Endocrine: Reports: fatigue Gastrointestinal: Denies: abdominal pain Genitourinary: Denies: dysuria Musculoskeletal: Reports: as per HPI, back pain (Chronic) Skin: Denies: rash Neurological: Reports: as per HPI 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, gout, SOB, dementia, frequent urination, one pressures sores on his left "bottom", History of Any Multi-Drug Resistant Organisms: None Reported Past Surgical History: Back Surgery, Cholecystectomy, Coronary Bypass/CABG, Heart Catheterization With Stent, Pacemaker Additional Past Surgical History / Comment(s): 13 cardiac stents, esophageal dilatation Past Anesthesia/Blood Transfusion Reactions: No Reported Reaction Date of Last Stent Placement:: unknown Type of Cardiac Device: Permanent Pacemaker Device Placement Date:: 10/03/16 Past Psychological History: Anxiety Smoking Status: Never smoker Past Alcohol Use History: Rare Past Drug Use History: None Reported - Past Family History Daughter(s) Family Medical History: Diabetes Mellitus Son(s) Family Medical History: No Reported History Mother Family Medical History: No Reported History General Exam Limitations: no limitations General appearance: alert, in no apparent distress Head exam: Present: atraumatic Eye exam: Present: normal appearance, PERRL, EOMI ENT exam: Present: normal oropharynx Neck exam: Present: normal inspection. Absent: tenderness, meningismus Respiratory exam: Present: normal lung sounds bilaterally Cardiovascular Exam: Present: irregular rhythm GI/Abdominal exam: Present: soft. Absent: tenderness Extremities exam: Present: normal inspection, other (Left lower leg brace) Neurological exam: Present: alert, other (Left leg weakness which patient states is chronic) Expanded Neurological exam: Present: protecting the airway Patient oriented to: Present: person, place. Absent: time Cranial nerves: EOM's Intact: Normal Motor strength exam: RUE: 5, LUE: 5, RLE: 5, LLE: 4 Eye Response: (4) open spontaneously Motor Response: (6) obeys commands Verbal Response: (4) confused conversation Psychiatric exam: Present: normal affect, normal mood Skin exam: Present: normal color Course Vital Signs 03/18/18 03/18/18 14:48 15:46 Temperature 97.8 F Pulse Rate 66 52 L Respiratory 20 16 Rate Blood Pressure 130/80 130/56 O2 Sat by Pulse 92 L 97 Oximetry - Reevaluation(s) Reevaluation #1: 03/18/18 16:42 Case was discussed with Dr. Patrick who did see the patient earlier today. He recommends holding Lasix and Zaroxolyn and gentle hydration at 75 mL per hour. He is made aware of lab work including troponin. Patient is on Eliquis. 03/18/18 16:43 Case was also discussed with Dr. Siddiqui, who will admit for Dr. Mercer. EKG Findings - EKG Comments: EKG Findings:: Paced rhythm with rate of 58. Demand pacemaker. QRS 156. QT 510. QTc 500. Left axis. Different morphologies of QRS secondary to pacemaker. Nonspecific ST-T. Medical Decision Making - Lab Data Result diagrams: 03/18/18 15:20 03/18/18 15:20 Lab Results 03/18/18 03/18/18 03/18/18 Range/Units 15:20 15:20 15:20 WBC 6.6 (3.8-10.6) k/uL RBC 4.11 L (4.30-5.90) m/uL Hgb 11.0 L (13.0-17.5) gm/dL Hct 33.3 L (39.0-53.0) % MCV 80.9 (80.0-100.0) fL MCH 26.8 (25.0-35.0) pg MCHC 33.2 (31.0-37.0) g/dL RDW 15.5 (11.5-15.5) % Plt Count 167 (150-450) k/uL Neutrophils % 77 % Lymphocytes % 13 % Monocytes % 6 % Eosinophils % 1 % Basophils % 0 % Neutrophils # 5.1 (1.3-7.7) k/uL Lymphocytes # 0.8 L (1.0-4.8) k/uL Monocytes # 0.4 (0-1.0) k/uL Eosinophils # 0.1 (0-0.7) k/uL Basophils # 0.0 (0-0.2) k/uL PT (9.0-12.0) sec INR (<1.2) APTT (22.0-30.0) sec Sodium 138 (137-145) mmol/L Potassium 3.0 L (3.5-5.1) mmol/L Chloride 99 (98-107) mmol/L Carbon Dioxide 29 (22-30) mmol/L Anion Gap 10 mmol/L BUN 56 H (9-20) mg/dL Creatinine 1.57 H (0.66-1.25) mg/dL Est GFR (CKD-EPI)AfAm 46 (>60 ml/min/1.73 sqM) Est GFR (CKD-EPI)NonAf 40 (>60 ml/min/1.73 sqM) Glucose 124 H (74-99) mg/dL Calcium 8.8 (8.4-10.2) mg/dL Magnesium 1.9 (1.6-2.3) mg/dL Total Bilirubin 1.3 (0.2-1.3) mg/dL AST 25 (17-59) U/L ALT 34 (21-72) U/L Alkaline Phosphatase 73 (38-126) U/L Total Creatine Kinase 23 L (55-170) U/L CK-MB (CK-2) 0.3 (0.0-2.4) ng/mL CK-MB (CK-2) Rel Index 1.3 Troponin I 0.199 H* (0.000-0.034) ng/mL NT-Pro-B Natriuret Pep pg/mL Total Protein 5.9 L (6.3-8.2) g/dL Albumin 3.2 L (3.5-5.0) g/dL TSH 2.780 (0.465-4.680) mIU/L Free T4 1.38 (0.78-2.19) ng/dL Free T3 pg/mL 4.2 (2.8-5.3) pg/ml 03/18/18 03/18/18 Range/Units 15:20 15:20 WBC (3.8-10.6) k/uL RBC (4.30-5.90) m/uL Hgb (13.0-17.5) gm/dL Hct (39.0-53.0) % MCV (80.0-100.0) fL MCH (25.0-35.0) pg MCHC (31.0-37.0) g/dL RDW (11.5-15.5) % Plt Count (150-450) k/uL Neutrophils % % Lymphocytes % % Monocytes % % Eosinophils % % Basophils % % Neutrophils # (1.3-7.7) k/uL Lymphocytes # (1.0-4.8) k/uL Monocytes # (0-1.0) k/uL Eosinophils # (0-0.7) k/uL Basophils # (0-0.2) k/uL PT 11.1 (9.0-12.0) sec INR 1.0 (<1.2) APTT 26.3 (22.0-30.0) sec Sodium (137-145) mmol/L Potassium (3.5-5.1) mmol/L Chloride (98-107) mmol/L Carbon Dioxide (22-30) mmol/L Anion Gap mmol/L BUN (9-20) mg/dL Creatinine (0.66-1.25) mg/dL Est GFR (CKD-EPI)AfAm (>60 ml/min/1.73 sqM) Est GFR (CKD-EPI)NonAf (>60 ml/min/1.73 sqM) Glucose (74-99) mg/dL Calcium (8.4-10.2) mg/dL Magnesium (1.6-2.3) mg/dL Total Bilirubin (0.2-1.3) mg/dL AST (17-59) U/L ALT (21-72) U/L Alkaline Phosphatase (38-126) U/L Total Creatine Kinase (55-170) U/L CK-MB (CK-2) (0.0-2.4) ng/mL CK-MB (CK-2) Rel Index Troponin I (0.000-0.034) ng/mL NT-Pro-B Natriuret Pep 1270 pg/mL Total Protein (6.3-8.2) g/dL Albumin (3.5-5.0) g/dL TSH (0.465-4.680) mIU/L Free T4 (0.78-2.19) ng/dL Free T3 pg/mL (2.8-5.3) pg/ml Disposition Clinical Impression: Hypotensive episode, Renal insufficiency Disposition: ADMITTED IP TO THIS HOSP Referrals: Loi Mercer MD [Primary Care Provider] - 1-2 days Decision Time: 16:43
--- NOTE | 2018-03-18 15:33 | XR ---
EXAMINATION TYPE: XR chest 2V DATE OF EXAM: 03/18/2018 COMPARISON: 03/07/2018 HISTORY: Syncopal episode and dysrhythmia with hypotension TECHNIQUE: Frontal and lateral views of the chest are obtained. FINDINGS: There is a trace left pleural effusion and very minimal pulmonary vascular congestion. The re is enlargement of the cardiomediastinal silhouette with post CABG changes and cardiac stent noted. Single lead cardiac device is seen. Degenerative changes of the thoracic spine and right acromioclav icular joint are noted. Probable calcified granulomas are seen at the right costophrenic angle and th roughout the retrocardiac airspace. IMPRESSION: Findings suggesting sequela of congestive heart failure.
[2018-03-18 15:40] LABS: Basophils % (A) 0 %; Eosinophils # (A) 0.1 k/uL (0-0.7); Eosinophils % (A) 1 %; HCT 33.3 % (39.0-53.0); Lymphocytes # (A) 0.8 k/uL (1.0-4.8); Lymphocytes % (A) 13 %; MCH 26.8 pg (25.0-35.0); MCHC 33.2 g/dL (31.0-37.0); MCV 80.9 fL (80.0-100.0); Mean Platelet Volume 7.7; Monocytes # (A) 0.4 k/uL (0-1.0); Monocytes % (A) 6 %; Neutrophils # (A) 5.1 k/uL (1.3-7.7); Neutrophils % (A) 77 %; Platelet Count 167 k/uL (150-450); RBC 4.11 m/uL (4.30-5.90); RDW 15.5 % (11.5-15.5); WBC 6.6 k/uL (3.8-10.6)
[2018-03-18 15:49] LABS: Partial Thromboplastin Time 26.3 sec (22.0-30.0); Prothrombin Time 11.1 sec (9.0-12.0)
[2018-03-18 15:51] LABS: Albumin 3.2 g/dL (3.5-5.0); Calcium 8.8 mg/dL (8.4-10.2); Magnesium 1.9 mg/dL (1.6-2.3); Total Bilirubin 1.3 mg/dL (0.2-1.3); Total Protein 5.9 g/dL (6.3-8.2)
[2018-03-18 16:03] LABS: Creatine Kinase MB 0.3 ng/mL (0.0-2.4)
[2018-03-18 16:06] LABS: T4, Free (Free Thyroxine) 1.38 ng/dL (0.78-2.19)
[2018-03-18 16:09] LABS: Troponin I 0.199 ng/mL (0.000-0.034)
[2018-03-18] MEDS ORDERED: guaiFENesin 600 MG TABLET.ER PO PRN (16:38)
[2018-03-18] MEDS ORDERED: NALOXONE 0.4 MG/ML 1 ML VIAL IV PRN (16:53)
[2018-03-18] MEDS ORDERED: NON-FORMULARY DRUG (Ubidecarenone [Co Q-10] 100 MG) PO SCH (17:30)
[2018-03-18 17:36] LABS: Appearance,Urine Clear (Clear); Bilirubin,Urine Negative (Negative); Blood,Urine Negative (Negative); Color,Urine Yellow; Glucose,Urine (UA) Negative (Negative); Ketones,Urine Negative (Negative); Leukocyte Esterase,Urine Negative (Negative); Nitrite,Urine Negative (Negative); Protein,Urine Negative (Negative); Specific Gravity,Urine 1.009 (1.001-1.035); Urobilinogen,Urine <2.0 mg/dL (<2.0)
[2018-03-18] MEDS ORDERED: MAGNESIUM HYDROXIDE 2,400 MG/10 ML CUP PO PRN (18:49)
[2018-03-18] MEDS ORDERED: POTASSIUM CHLORIDE 10 MEQ in WATER FOR INJECTION 1 100ML.BAG IVPB STA (18:49)
[2018-03-18 18:52] LABS: Glucose,Whole Blood 113 mg/dL (75-99)
[2018-03-18] MEDS: TAMSULOSIN 0.4 MG CAP.ER.24H PO SCH (19:01)
[2018-03-18] MEDS: ATORVASTATIN 20 MG TAB PO SCH (19:01)
[2018-03-18] MEDS: CARVEDILOL 3.125 MG TAB PO SCH (19:01)
[2018-03-18] MEDS: ISOSORBIDE MONONITRATE ER 60 MG TAB.ER.24H PO SCH (19:01)
[2018-03-18 21:05] LABS: Glucose,Whole Blood 146 mg/dL (75-99)
[2018-03-18] MEDS: SODIUM CHLORIDE 0.9% 1,000 ML IV SCH (21:09)
[2018-03-18] MEDS: POTASSIUM CHLORIDE 10 MEQ in WATER FOR INJECTION 1 100ML.BAG IVPB SCH (21:09)
[2018-03-18] MEDS: POTASSIUM CHLORIDE ER 20 MEQ TAB.ER PO SCH ×2 (21:19→23:28)
[2018-03-18] MEDS: DOCUSATE 100 MG CAP PO SCH (21:19)
[2018-03-18] MEDS: APIXABAN 2.5 MG TABLET PO SCH (21:19)
[2018-03-18 22:46] LABS: Creatine Kinase MB 0.3 ng/mL (0.0-2.4)
[2018-03-18 23:04] LABS: Troponin I 0.185 ng/mL (0.000-0.034)
[2018-03-19] MEDS: POTASSIUM CHLORIDE 10 MEQ in WATER FOR INJECTION 1 100ML.BAG IVPB SCH (01:33)
[2018-03-19 04:03] LABS: Calcium 8.3 mg/dL (8.4-10.2); Potassium 3.1 mmol/L (3.5-5.1)
[2018-03-19 04:25] LABS: Creatine Kinase <20 U/L (55-170)
[2018-03-19] MEDS ORDERED: Potassium Replacement Protocol 1 EACH MISC MISCELLANE PRN (04:26)
[2018-03-19 04:37] LABS: Creatine Kinase MB <0.2 ng/mL (0.0-2.4)
[2018-03-19 04:57] LABS: Troponin I 0.173 ng/mL (0.000-0.034)
[2018-03-19] MEDS: POTASSIUM CHLORIDE ER 20 MEQ TAB.ER PO SCH ×3 (05:46→12:57)
[2018-03-19 06:10] LABS: Glucose,Whole Blood 94 mg/dL (75-99)
[2018-03-19] MEDS: SODIUM CHLORIDE 0.9% 1,000 ML IV SCH ×2 (07:07→14:21)
[2018-03-19] MEDS: CARVEDILOL 3.125 MG TAB PO SCH ×2 (07:07→17:59)
[2018-03-19] MEDS: SYMBICORT 80-4.5 MCG INHALER INHALATION SCH ×2 (07:31→19:40)
[2018-03-19] MEDS: ALBUTEROL NEBULIZED 2.5 MG/3 ML INHALATION PRN ×3 (07:31→19:38)
[2018-03-19] MEDS ORDERED: NON-FORMULARY DRUG (Cranberry Fruit Extract [Cranberry] 500 MG) PO SCH (09:00)
[2018-03-19] MEDS ORDERED: SPIRONOLACTONE 25 MG TAB PO SCH (09:00)
[2018-03-19] MEDS: FERROUS SULFATE 325 MG TAB PO SCH (10:13)
[2018-03-19] MEDS: DOCUSATE 100 MG CAP PO SCH ×2 (10:13→19:58)
[2018-03-19] MEDS: LISINOPRIL 10 MG TAB PO SCH (10:13)
[2018-03-19] MEDS: APIXABAN 2.5 MG TABLET PO SCH ×2 (10:13→19:58)
[2018-03-19] MEDS: CHOLECALCIFEROL 1,000 UNIT TAB PO SCH (10:13)
[2018-03-19 10:45] VITALS: BMI 32.6
[2018-03-19 11:41] LABS: Glucose,Whole Blood 153 mg/dL (75-99)
[2018-03-19] MEDS ORDERED: NON-FORMULARY DRUG (Krill Oil [Krill Oil] 500 MG) PO SCH (12:00)
--- NOTE | 2018-03-19 12:08 | CONS ---
CONSULTATION Please refer to the detailed consultation in the chart available within the last 2 weeks. Mr. Chery is an 87-year-old elderly gentleman who sees me in the office and Dr. Mercer from a primary care standpoint. He was last seen here in consultation by Dr. Lisa Chavez and on 03/06/2018 This gentleman came into the office for a followup visit. At the time of his discharge last time, he was given both Lasix and metolazone combination with this he became quite dehydrated. He came in lethargic, weak with lack of energy and a systolic pressure was in the 80s and he was cold and clammy. An IV was started. He was given a bolus of IV fluids and transferred to the emergency room. It appears that patient has a fair systolic function in the range of 50% to 55% with previous bypass surgery and also had a cardiac catheterization that was performed by me in April of 2017, which revealed that he has a right dominant system with a point hope ira left vein was stented and patent without disease and diagonal was free of significant disease. LAD was occluded and circumflex had two small branches free of significant disease. Vein graft to the obtuse marginal was occluded. Vein graft to the PDA was patent with a 40% disease. YOO to LAD was also patent. Patient had diffuse disease but was advised medical therapy and there was no revascularization options at that time. He also has chronic atrial fibrillation with slow ventricular rate, sick sinus syndrome with near syncope and has a permanent pacemaker that is functioning well. Patient was sent to the emergency room with the understanding that he was dehydrated, had prerenal azotemia and because of hypotension, I suspect he may have some troponin elevation. In the emergency room, his blood pressure was better. Hydration was continued and he is doing better since arrival. Troponins do reveal an increased value, but he also has some renal dysfunction and the profile suggests this may be related to an oxygen supply mismatch type situation with hypotension. PAST MEDICAL HISTORY: 1. CAD with prior bypass surgery and PCI. 2. Hypertension. 3. Hyperlipidemia. 4. Recent hospitalization with diastolic heart failure and placed on diuretics. 5. History of sick sinus syndrome with chronic atrial fibrillation with underlying permanent pacemaker that has been checked and functioning well. MEDICATIONS: At home included Aldactone, Imdur, metolazone, apixaban 2.5 mg b.i.d. Metolazone was 3 times a week. Coreg was 3.125 mg b.i.d. and oral Lasix was 40 mg b.i.d. Flomax 0.4 mg daily. PHYSICAL EXAMINATION: In the office, his systolic blood pressure was 80 and after IV fluids pressure came up to 100 systolic. Pulse rate was in the was about 60 per minute. HEENT: Unremarkable. JVD was not evident, S1, S2 heard normally. Short systolic murmur was noted, irregular rhythm was noted. Lungs reveal diminished air entry. Abdomen is soft. Lower extremities reveal that there were cold with diminished pulses. Central nervous system, grossly no focal deficits but there was generalized weakness. IMPRESSION: 1. Volume depletion, dehydration, prerenal azotemia in a patient with known coronary artery disease. 2. History of coronary artery disease, prior bypass surgery and PCI. 3. Chronic atrial fibrillation with sick sinus syndrome with a permanent pacemaker that is functioning well. RECOMMENDATIONS: I am recommending cautious hydration, medications after he becomes more euvolemic. Follow up his labs closely. I would not recommend any aggressive intervention even if troponin is mildly elevated given his overall circumstances and previous multiple interventions in this elderly patient. Discussed my thoughts in detail with the patient and his daughter who was in the office yesterday with him. Thank you very much for the consult. JOSE / IJN: [id number] /
[2018-03-19] MEDS: ALLOPURINOL 100 MG TAB PO SCH (12:57)
[2018-03-19] MEDS: LACTOBACILLUS ACIDOPH & BULGAR 1 EACH PACKET PO SCH (12:57)
[2018-03-19] MEDS: CYANOCOBALAMIN 500 MCG TAB PO SCH (12:57)
[2018-03-19] MEDS: ENZALUTAMIDE 160 MG PO SCH (12:58)
--- NOTE | 2018-03-19 14:27 | P.HPIM ---
History of Present Illness H&P Date: 03/19/18 Chief Complaint: Weakness low blood pressure This is an 87-year-old male. Patient of is Dr. Mercer and house admin is Dr. CANDELARIO Patrick. He has a past medical history of coronary artery disease with prior coronary artery stenting, diabetes mellitus type 2, hypertension, hyperlipidemia, chronic atrial fibrillation on Eliquis, chronic diastolic heart failure, obstructive sleep apnea with CPAP, gastroesophageal reflux disease, dementia, prostate cancer and is on chronic anticoagulation. According to the patient's , patient comes in with low blood pressure, he was seen at the cardiology office, and was noted to be weak, and dehydrated. He was just admitted from facility 03/09/2018 for CHF exacerbation, and was seen by cardiology as well as pulmonary, he was discharged on 2 diuretics frusemide 40 mg twice a day as well as Aldactone 25 mg daily. Oral antibiotic also was given 750 Levaquin every 48 hours 3 tablets. Rest of medications were maintained including Imdur 60 mg did not, Coreg 6.25 mg twice a day Colcrys Lipitor Nipride 0.5 mg every breakfast. During the last admission in March 2018, Echocardiogram from reveals EF 55- 60%, trace tricuspid regurgitation, moderate concentric left ventricular hypertrophy In the emergency room, troponin was 0.185 0.173. From a previous of 0.027, creatinine on admission was 1.57, last creatinine was 1.3. 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 Review of Systems Constitutional: Reports as per HPI, Denies anorexia, Denies chills, Denies chronic headaches, Denies chronic pain, Denies daytime sleepiness, Denies fatigue, Denies fever, Denies lethargy, Denies malaise, Denies night sweats, Denies poor appetite, Denies sweats, Denies weakness, Denies weight gain, Denies weight loss Ears, nose, mouth and throat: Reports as per HPI, Denies ant. neck pain, Denies bleeding gums, Denies dental pain, Denies dysphagia, Denies epistaxis, Denies headache, Denies hoarseness, Denies mouth pain, Denies nasal congestion, Denies nasal discharge, Denies neck fullness/pressure, Denies neck lump, Denies nose pain, Denies odynophagia, Denies post-nasal drip, Denies sinus pain, Denies sinus pressure, Denies swelling in mouth, Denies swelling in throat, Denies sore throat, Denies vertigo, Denies voice changes Cardiovascular: Reports as per HPI, Denies chest pain, Denies claudication, Denies decreased exercise tolerance, Denies dyspnea on exertion, Denies edema, Denies high blood pressure, Denies irregular heart beat, Denies leg edema, Denies lightheadedness, Denies orthopnea, Denies palpitations, Denies paroxysmal nocturnal dyspnea, Denies phlebitis, Denies rapid heart beat, Denies shortness of breath, Denies syncope Respiratory: Reports as per HPI, Denies congestion, Denies cough, Denies cough with sputum, Denies dyspnea, Denies excessive sputum, Denies hemoptysis, Denies home oxygen, Denies pain, Denies pain on inspiration, Denies pleurisy, Denies respiratory infections, Denies sleep apnea, Denies snoring, Denies wheezing Gastrointestinal: Reports as per HPI, Denies abdominal pain, Denies belching, Denies bloating, Denies BRBPR, Denies change in bowel habits, Denies coffee ground emesis, Denies constipation, Denies diarrhea, Denies dyspepsia, Denies early satiety, Denies excessive gas, Denies heartburn, Denies hematemesis, Denies hematochezia, Denies indigestion, Denies jaundice, Denies lactose intolerance, Denies loss of appetite, Denies melena, Denies nausea, Denies vomiting Genitourinary: Reports as per HPI Musculoskeletal: Reports as per HPI, Reports limitation of motion Integumentary: Reports as per HPI Neurological: Reports as per HPI, Reports hearing difficulties, Reports memory loss, Denies aphasia, Denies ataxia, Denies balance difficulties, Denies burning pain, Denies change in mentation, Denies change in smell/taste, Denies change in speech, Denies confusion, Denies convulsions, Denies double vision, Denies gait dysfunction, Denies head injury, Denies lack of coordination, Denies loss of vision, Denies migraines, Denies motor disturbance, Denies numbness, Denies paralysis, Denies paresthesias, Denies seizures, Denies sensory deficit, Denies spasticity, Denies syncope, Denies tic, Denies tingling , Denies transient paralysis, Denies tremors, Denies vertigo, Denies weakness, Denies visual changes Psychiatric: Reports as per HPI, Denies anhedonia, Denies anxiety, Denies anxiety attacks, Denies change in appetite, Denies change in libido, Denies change in sleep habits, Denies confusion, Denies depression, Denies difficulty concentrating, Denies disorientation, Denies hallucinations, Denies hopelessness , Denies hypersomnia, Denies insomnia, Denies irritability, Denies memory loss, Denies mood swings, Denies paranoia, Denies sadness/tearfulness, Denies sleep disturbances, Denies suicidal ideation Endocrine: Reports as per HPI, Denies cold intolerance, Denies deepening of the voice, Denies excessive sweating, Denies excessive thirst, Denies fatigue, Denies flushing, Denies heat intolerance, Denies high blood sugars, Denies increase in ring/shoe/hat size, Denies low blood sugars, Denies nocturia, Denies palpitations, Denies polydipsia, Denies polyphagia, Denies polyuria, Denies proptosis, Denies recent glucocorticoid use, Denies thyroid mass, Denies weight change Hematologic/Lymphatic: Reports as per HPI Allergic/Immunologic: Reports as per HPI, Denies allergic rhinitis, Denies anaphylaxis, Denies angioedema, Denies gluten intolerance, Denies persistent infections, Denies seasonal allergies, Denies urticaria, Denies wheezing Past Medical History Past Medical History: Atrial Fibrillation, Coronary Artery Disease (CAD), Cancer , Heart Failure, Dementia, Diabetes Mellitus, Fibromyalgia, Memory Impairment, Osteoarthritis (OA), Pneumonia, Prostate Disorder, Respiratory Disorder, Sleep Apnea/CPAP/BIPAP Additional Past Medical History / Comment(s): prostate cancer- tx with hormones and radiation, drop foot, wears brace lt foot, gout, SOB, dementia, frequent urination, one pressures sores on his left "bottom", per daughter-pt 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 History of Any Multi-Drug Resistant Organisms: None Reported Past Surgical History: Back Surgery, Cholecystectomy, Coronary Bypass/CABG, Heart Catheterization With Stent, Pacemaker Additional Past Surgical History / Comment(s): 13 cardiac stents, esophageal dilatation Past Anesthesia/Blood Transfusion Reactions: No Reported Reaction Date of Last Stent Placement:: unknown Type of Cardiac Device: Permanent Pacemaker Device Placement Date:: 10/03/16 Smoking Status: Never smoker - Past Family History Daughter(s) Family Medical History: Diabetes Mellitus Son(s) Family Medical History: No Reported History Mother Family Medical History: COPD Additional Family Medical History / Comment(s): emphysema Father Family Medical History: Coronary Artery Disease (CAD) Additional Family Medical History / Comment(s): valve sx heart disease Brother(s) Additional Family Medical History / Comment(s): from heart disease Medications and Allergies Home Medications Medication Instructions Recorded Confirmed Type Albuterol Nebulized [Ventolin 2.5 mg INHALATION RT-QID PRN 11/12/15 03/18/18 History Nebulized] Atorvastatin Calcium [Lipitor] 20 mg PO AC-SUPPER 11/12/15 03/18/18 History Calcium/Magnesium/Zinc 1 tab PO DAILY@1200 11/12/15 03/18/18 History [Ecsfnwh-Mrsnaxzmz-Eokf Tablet] Carvedilol [Coreg] 3.125 mg PO BID 11/12/15 03/18/18 History Colchicine [Colcrys] 0.6 mg PO DAILY@1200 PRN 11/12/15 03/18/18 History Isosorbide Mononitrate ER [Imdur] 60 mg PO AC-SUPPER 11/12/15 03/18/18 History Krill Oil 500 mg PO DAILY@1200 11/12/15 03/18/18 History L.acidoph,Paracasei, B.lactis 1 cap PO DAILY@1200 11/12/15 03/05/18 History [Probiotic] Metolazone [Zaroxolyn] 2.5 mg PO SUTUTH 11/12/15 03/18/18 History Multivitamins, Thera [Multivitamin 1 tab PO DAILY@1200 11/12/15 03/18/18 History (formulary)] Tamsulosin HCl [Flomax] 0.4 mg PO AC-SUPPER 11/12/15 03/18/18 History Cholecalciferol [Vitamin D3] 2,000 unit PO DAILY 04/07/16 03/18/18 History Glimepiride [Amaryl] 0.5 mg PO AC-BRKFST #0 04/15/16 03/18/18 Rx Cranberry Fruit Extract [Cranberry] 500 mg PO DAILY 04/17/17 03/18/18 History Cyanocobalamin (Vitamin B-12) 5,000 mcg PO DAILY@1200 04/17/17 03/18/18 History [Vitamin B12] Febuxostat [Uloric] 40 mg PO DAILY@1200 04/17/17 03/18/18 History Apixaban [Eliquis] 2.5 mg PO BID 10/03/17 03/18/18 History Budesonide [Pulmicort] 0.5 mg PO RT-BID 10/03/17 03/18/18 History Enzalutamide [Xtandi] 160 mg PO DAILY@1200 10/03/17 03/18/18 History Docusate [Colace] 100 mg PO BID 11/07/17 03/18/18 History Potassium Chloride ER [K-Dur 20] 20 meq PO DAILY@1200 11/07/17 03/18/18 History Ubidecarenone [Co Q-10] 100 mg PO AC-SUPPER 11/07/17 03/18/18 History guaiFENesin [Mucinex] 600 mg PO Q12H PRN 11/07/17 03/18/18 History Ferrous Sulfate [Feosol] 325 mg PO DAILY 03/18/18 03/18/18 History Fluticasone/Vilanterol [Breo 1 puff INHALATION RT-DAILY 03/18/18 03/18/18 History Ellipta 100-25 Mcg Inhaler] Furosemide [Lasix] 20 mg PO HS 03/18/18 03/18/18 History Furosemide [Lasix] 40 mg PO DAILY@0800 03/18/18 03/18/18 History Lisinopril [Zestril] 10 mg PO DAILY 03/18/18 03/18/18 History Spironolactone [Aldactone] 12.5 mg PO DAILY 03/18/18 03/18/18 History Allergies Allergy/AdvReac Type Severity Reaction Status Date / Time Penicillins Allergy Unknown Verified 03/18/18 16:00 Physical Exam Vitals: Vital Signs Temp Pulse Pulse Resp BP BP Pulse Ox 03/19/18 11:23 52 L 03/19/18 11:17 52 L 12 03/19/18 08:00 96.1 F L 55 L 18 124/57 98 03/19/18 07:40 52 L 12 03/19/18 07:33 52 L 14 94 L 03/19/18 04:00 97.0 F L 45 L 18 115/58 100 03/19/18 00:00 52 L 18 97/51 100 03/18/18 20:00 97.0 F L 55 L 18 100/57 100 03/18/18 18:25 98 F 55 L 18 121/70 95 03/18/18 18:06 89 16 127/80 99 03/18/18 15:46 52 L 16 130/56 97 03/18/18 14:48 97.8 F 66 20 130/80 92 L Intake and Output 03/18/18 03/19/18 03/19/18 22:59 06:59 14:59 Intake Total 240 Output Total 50 200 Balance -50 40 Intake: Oral 240 Output: Urine 50 200 Other: Voiding Method Urinal # Voids 1 Weight 110.903 kg 109.2 kg 109.2 kg - Constitutional General appearance: average body habitus, cooperative, no acute distress, obese - EENT Eyes: anicteric sclerae, EOMI, PERRLA, dentition normal, normal appearance ENT: NA/AT, normal oropharynx - Neck Neck: normal ROM Thyroid: bilateral: normal size, negative: enlarged, firm - Respiratory Respiratory: bilateral: CTA, negative: diminished, dullness - Cardiovascular Rhythm: regular Heart sounds: normal: S1, S2 Abnormal Heart Sounds: no systolic murmur, no diastolic murmur, no rub, no S3 Gallop, no S4 Gallop, no click, no other - Gastrointestinal General gastrointestinal: normal bowel sounds, soft - Integumentary Integumentary: normal, normal turgor - Neurologic Neurologic: CNII-XII intact - Musculoskeletal Musculoskeletal: gait normal, strength equal bilaterally - Psychiatric Psychiatric: A&O x's 3, appropriate affect, intact judgment & insight Results CBC & Chem 7: 03/18/18 15:20 03/19/18 07:56 Labs: Abnormal Lab Results - Last 24 Hours (Table) 03/18/18 03/18/1819 Range/Units 15:20 15:20 15:20 RBC 4.11 L (4.30-5.90) m/uL Hgb 11.0 L (13.0-17.5) gm/dL Hct 33.3 L (39.0-53.0) % Lymphocytes # 0.8 L (1.0-4.8) k/uL Potassium 3.0 L (3.5-5.1) mmol/L BUN 56 H (9-20) mg/dL Creatinine 1.57 H (0.66-1.25) mg/dL Glucose 124 H (74-99) mg/dL POC Glucose (mg/dL) (75-99) mg/dL Calcium (8.4-10.2) mg/dL Total Creatine Kinase 23 L (55-170) U/L Troponin I 0.199 H* (0.000-0.034) ng/mL Total Protein 5.9 L (6.3-8.2) g/dL Albumin 3.2 L (3.5-5.0) g/dL 03/18/18 03/18/18 03/18/18 Range/Units 18:42 21:04 21:59 RBC (4.30-5.90) m/uL Hgb (13.0-17.5) gm/dL Hct (39.0-53.0) % Lymphocytes # (1.0-4.8) k/uL Potassium (3.5-5.1) mmol/L BUN (9-20) mg/dL Creatinine (0.66-1.25) mg/dL Glucose (74-99) mg/dL POC Glucose (mg/dL) 113 H 146 H (75-99) mg/dL Calcium (8.4-10.2) mg/dL Total Creatine Kinase 22 L (55-170) U/L Troponin I 0.185 H* (0.000-0.034) ng/mL Total Protein (6.3-8.2) g/dL Albumin (3.5-5.0) g/dL 03/19/18 03/19/18 03/19/18 Range/Units 03:16 03:16 11:39 RBC (4.30-5.90) m/uL Hgb (13.0-17.5) gm/dL Hct (39.0-53.0) % Lymphocytes # (1.0-4.8) k/uL Potassium 3.1 L (3.5-5.1) mmol/L BUN 59 H (9-20) mg/dL Creatinine 1.41 H (0.66-1.25) mg/dL Glucose (74-99) mg/dL POC Glucose (mg/dL) 153 H (75-99) mg/dL Calcium 8.3 L (8.4-10.2) mg/dL Total Creatine Kinase <20 L (55-170) U/L Troponin I 0.173 H* (0.000-0.034) ng/mL Total Protein (6.3-8.2) g/dL Albumin (3.5-5.0) g/dL Thrombosis Risk Factor Assmnt - DVT/VTE Prophylaxis DVT/VTE Prophylaxis: Low risk, early ambulation encouraged - Choose All That Apply Any of the Below Risk Factors Present?: No Other Risk Factors: Yes Each Risk Factor Represents 3 Points: Age 75 years or older Other congenital or acquired thrombophilia - If yes, enter type in comment: No Thrombosis Risk Factor Assessment Total Risk Factor Score: 3 Thrombosis Risk Factor Assessment Level: Moderate Risk Assessment and Plan Plan: 1. Hypotension, with recent titration of diuretics, diuretics are on hold, IV fluids are 75 mL now were to provide some normotensive control off the blood pressure, etiology is following, spironolactone and Lasix 40 mg twice a day has been held and we restarted Lasix at 40 mg daily 2. Elevated troponin, with recent percutaneous intervention, house admin following closely, 3. History of chronic diastolic heart failure currently compensated. Continue Lasix 40 mg decreased down to daily continue spironolactone 25 mg daily, lisinopril 10 mg daily. Monitor I&O, daily weights, electrolytes and renal function. Cardiology consult appreciated. 4. Acute kidney injury renal sufficiency, with CK D stage III is most likely secondary to ATN, gentle hydration, we've decreased the diuretic from 40 mg twice a day to 40 mg daily, Zaroxolyn is currently on hold 4 Chronic atrial fibrillation. Continue Coreg 6.25 mg twice daily and Eliquis. 5. Diabetes mellitus type 2. Continue glimepiride 0.5 mg daily and Humalog scale before meals and at bedtime. 6 History of chronic diastolic heart failure. Continue as in #1. 7. Hypertension. Continue Coreg 6.25 mg twice daily and lisinopril 10 mg daily. 8 Hyperlipidemia. Continue Lipitor. 9. Benign prostatic hypertrophy. Continue Flomax twice daily. 10. History of coronary artery disease. Continue aspirin 81 mg daily, Lipitor , Coreg. 10. Obstructive sleep apnea on CPAP. 11. Prostate cancer. Continue enzalutamide. Patient may take his medication from home. 12. Chronic kidney disease stage III, stable. Monitor renal function. 13. GI prophylaxis. Pepcid. 14. DVT prophylaxis. Eliquis. Discharge plan: Home Sunday with [facility]
[2018-03-19 16:06] LABS: Hemoglobin A1C 5.7 % (4.0-6.0)
[2018-03-19 16:25] LABS: Glucose,Whole Blood 118 mg/dL (75-99)
[2018-03-19] MEDS: ISOSORBIDE MONONITRATE ER 60 MG TAB.ER.24H PO SCH (17:59)
[2018-03-19] MEDS: TAMSULOSIN 0.4 MG CAP.ER.24H PO SCH (17:59)
[2018-03-19] MEDS: ATORVASTATIN 20 MG TAB PO SCH (17:59)
[2018-03-19 21:04] LABS: Glucose,Whole Blood 122 mg/dL (75-99)
[2018-03-20 06:11] LABS: Glucose,Whole Blood 112 mg/dL (75-99)
[2018-03-20] MEDS: CARVEDILOL 3.125 MG TAB PO SCH (06:41)
[2018-03-20 07:18] LABS: HCT 28.7 % (39.0-53.0); Hypochromasia Slight; MCH 27.1 pg (25.0-35.0); MCHC 32.4 g/dL (31.0-37.0); MCV 83.6 fL (80.0-100.0); Mean Platelet Volume 7.4; Platelet Count 127 k/uL (150-450); RBC 3.43 m/uL (4.30-5.90); RDW 15.6 % (11.5-15.5); WBC 5.7 k/uL (3.8-10.6)
[2018-03-20 07:19] LABS: Calcium 8.2 mg/dL (8.4-10.2); Potassium 3.4 mmol/L (3.5-5.1)
[2018-03-20 07:21] LABS: HGB 9.3 gm/dL (13.0-17.5)
[2018-03-20] MEDS: SYMBICORT 80-4.5 MCG INHALER INHALATION SCH (07:27)
[2018-03-20 08:29] VITALS: RESP 17
[2018-03-20] MEDS: CHOLECALCIFEROL 1,000 UNIT TAB PO SCH (08:30)
[2018-03-20] MEDS: DOCUSATE 100 MG CAP PO SCH (08:30)
[2018-03-20] MEDS: FERROUS SULFATE 325 MG TAB PO SCH (08:30)
[2018-03-20] MEDS: APIXABAN 2.5 MG TABLET PO SCH (08:30)
[2018-03-20] MEDS: ALLOPURINOL 100 MG TAB PO SCH (08:31)
[2018-03-20] MEDS: LISINOPRIL 10 MG TAB PO SCH (08:31)
[2018-03-20] MEDS: POTASSIUM CHLORIDE ER 20 MEQ TAB.ER PO SCH ×3 (08:37→09:53)
[2018-03-20] MEDS: SODIUM CHLORIDE 0.9% 1,000 ML IV SCH (08:38)
[2018-03-20] MEDS: CYANOCOBALAMIN 500 MCG TAB PO SCH (08:38)
[2018-03-20] MEDS: ENZALUTAMIDE 160 MG PO SCH (08:39)
[2018-03-20] MEDS ORDERED: FUROSEMIDE 40 MG TAB PO SCH (09:00)
[2018-03-20 11:35] VITALS: TEMP 97.2
[2018-03-20] MEDS: LACTOBACILLUS ACIDOPH & BULGAR 1 EACH PACKET PO SCH (11:38)
[2018-03-20 12:34] LABS: Glucose,Whole Blood 142 mg/dL (75-99)
[2018-03-20 14:21] VITALS: BP 113/70; PULSE 67
--- NOTE | 2018-03-20 14:22 | P.PN ---
Subjective Progress Note Date: 03/20/18 This is an 87-year-old male. 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 He has a past medical history of coronary artery disease with prior coronary artery stenting, diabetes mellitus type 2, hypertension, hyperlipidemia, chronic atrial fibrillation on Eliquis, chronic diastolic heart failure, obstructive sleep apnea with CPAP, gastroesophageal reflux disease, dementia, prostate cancer and is on chronic anticoagulation. Patient was initially admitted to the hospital by Dr. Barrera Patrick after being seen in the office and found to be hypotensive. Patient was seen and examined today, daughter and were present, sitting at the edge of the bed or getting ready to get up with physical therapy, felt mildly lightheaded. We did check his blood pressure at that time which came back to be 140/ 80. Overall his blood pressure today is been stable. Objective - Vital Signs Vital signs: Vital Signs Temp 97.2 F L 03/20/18 11:34 Pulse 59 L 03/20/18 12:00 Resp 17 03/20/18 12:00 BP 151/68 03/20/18 11:34 Pulse Ox 96 03/20/18 11:34 Intake & Output 03/19/18 03/20/18 03/20/18 18:59 06:59 18:59 Intake Total 480 600 497 Output Total 200 550 Balance 280 50 497 Weight 109.2 kg 110.3 kg Intake: IV 600 Sodium Chloride 0.9% 1, 600 000 ml @ 50 mls/hr IV . Q20H [facility] Rx#:[id number] Oral 480 497 Output: Urine 200 550 Other: Voiding Method Urinal Urinal # Voids 3 3 - Exam PHYSICAL EXAMINATION: GENERAL: 87-year-old gentleman in no acute distress at the time of my examination HEENT: Head is atraumatic, normocephalic. Pupils equal, round. Sclera anicteric. Conjunctiva are clear. Mucous membranes of the mouth are moist. Neck is supple. There is no elevated jugular venous pressure. No carotid bruit is heard. HEART EXAMINATION: [Heart S1, S2 systolic murmur is heard . No murmur or gallop heard.] CHEST EXAMINATION:[ Lungs are clear to auscultation and precussion. No chest wall tenderness is noted on palpation or with deep breathing.] ABDOMEN: [ Soft, nontender. Bowel sounds are heard. No organomegaly noted]. EXTREMITIES:[ 2+ peripheral pulses with no evidence of peripheral edema and no calf tenderness noted]. NEUROLOGIC [patient is awake, alert and oriented 3 .] . - Labs CBC & Chem 7: 03/20/18 06:04 03/20/18 06:04 Labs: Abnormal Lab Results - Last 24 Hours (Table) 03/19/18 03/19/18 03/20/18 Range/Units 16:21 21:02 06:04 RBC 3.43 L (4.30-5.90) m/uL Hgb 9.3 L D (13.0-17.5) gm/dL Hct 28.7 L (39.0-53.0) % RDW 15.6 H (11.5-15.5) % Plt Count 127 L (150-450) k/uL Potassium (3.5-5.1) mmol/L BUN (9-20) mg/dL Creatinine (0.66-1.25) mg/dL POC Glucose (mg/dL) 118 H 122 H (75-99) mg/dL Calcium (8.4-10.2) mg/dL 03/20/18 03/20/18 Range/Units 06:04 06:09 RBC (4.30-5.90) m/uL Hgb (13.0-17.5) gm/dL Hct (39.0-53.0) % RDW (11.5-15.5) % Plt Count (150-450) k/uL Potassium 3.4 L (3.5-5.1) mmol/L BUN 42 H (9-20) mg/dL Creatinine 1.29 H (0.66-1.25) mg/dL POC Glucose (mg/dL) 112 H (75-99) mg/dL Calcium 8.2 L (8.4-10.2) mg/dL Assessment and Plan Plan: Assessment and plan 1. Hypotension 2. Elevated troponin suggestive of acute coronary syndrome. Patient has a known history of coronary artery disease with recent PCI 3. History of chronic diastolic heart failure 4. Acute kidney injury renal sufficiency, with CK D stage III 4 Chronic atrial fibrillation. . 5. Diabetes mellitus type 2 6 History of chronic diastolic heart failure. 7. Hypertension. 8 Hyperlipidemia. 9. Benign prostatic hypertrophy. 10. Obstructive sleep apnea on CPAP. 11. Prostate cancer. Plan Cardiology's perspective, patient may be able to be discharged home once cleared by primary. We'll make a follow-up to see Dr. CANDELARIO Patrick in the office post discharge. At this point in time we will continue with current medications. DNP note has been reviewed, I agree with a documented findings and plan of care. Patient was seen and examined.
--- NOTE | 2018-03-21 09:57 | P.DS ---
Providers Date of admission: 03/18/18 16:53 Expected date of discharge: 03/20/18 Attending physician: Katlin Siddiqui Consults: 03/18/18 16:54 Consult Physician Urgent Consulting Provider: Kandy Patrick Consult Reason/Comments: cardiac care Do you want consulting provider notified?: Already Contacted Primary care physician: [facility] Course: This is an 87-year-old male. Patient of is Dr. Mercer and pharmacy informaticist is Dr. CANDELARIO Patrick. He has a past medical history of coronary artery disease with prior coronary artery stenting, diabetes mellitus type 2, hypertension, hyperlipidemia, chronic atrial fibrillation on Eliquis, chronic diastolic heart failure, obstructive sleep apnea with CPAP, gastroesophageal reflux disease, dementia, prostate cancer and is on chronic anticoagulation. According to the patient's , patient comes in with low blood pressure, he was seen at the cardiology office, and was noted to be weak, and dehydrated. He was just admitted from facility 03/09/2018 for CHF exacerbation, and was seen by cardiology as well as pulmonary, he was discharged on 2 diuretics frusemide 40 mg twice a day as well as Aldactone 25 mg daily. Oral antibiotic also was given 750 Levaquin every 48 hours 3 tablets. Rest of medications were maintained including Imdur 60 mg did not, Coreg 6.25 mg twice a day Colcrys Lipitor Nipride 0.5 mg every breakfast. During the last admission in March 2018, Echocardiogram from reveals EF 55- 60%, trace tricuspid regurgitation, moderate concentric left ventricular hypertrophy In the emergency room, troponin was 0.185 0.173. From a previous of 0.027, creatinine on admission was 1.57, last creatinine was 1.3. Urinalysis is negative TSH is 2.7 [employer] proBNP off 2.78, cardiology is following the patient, diuretics are on hold, secondary to dehydration, oral fluids is encouraged, and IV fluids is provided at 75 mL an hour. 03/20: The patient has been seen by cardiology with recommendations to resume only a small dose of Lasix and hold Aldactone and metolazone. Patient has been cleared by cardiology for discharge. Orthostatic vital signs are negative. Repeat BUN 42 and creatinine 1.29, hemoglobin 9.3. Blood sugars run between 112 and 142. Patient will be discharged home today in stable condition. Discharge diagnoses: 1. Hypotension, with recent titration of diuretics 2. Elevated troponin, with recent percutaneous intervention 3. Chronic diastolic heart failure. 4. CKD stage III with baseline creatinine of 1.4 5. Chronic atrial fibrillation. 6. Diabetes mellitus type 2. 7. Hypertension. 8 Hyperlipidemia. 9. Benign prostatic hypertrophy. 10. History of coronary artery disease. 10. Obstructive sleep apnea on CPAP. 11. Prostate cancer. Discharge plan: Home with [facility] Impression and plan of care have been directed as dictated by the signing physician. Sheyla George nurse practitioner acting as scribe for signing physician. Patient Condition at Discharge: Stable Plan - Discharge Summary Discharge Rx Participant: No New Discharge Prescriptions: Continue Albuterol Nebulized [Ventolin Nebulized] 2.5 mg INHALATION RT-QID PRN PRN Reason: Shortness Of Breath Atorvastatin Calcium [Lipitor] 20 mg PO AC-SUPPER Calcium/Magnesium/Zinc [Wqvjmex-Rjowurwla-Qatr Tablet] 1 tab PO DAILY@1200 Carvedilol [Coreg] 3.125 mg PO BID Colchicine [Colcrys] 0.6 mg PO DAILY@1200 PRN PRN Reason: GOUT Isosorbide Mononitrate ER [Imdur] 60 mg PO AC-SUPPER Krill Oil 500 mg PO DAILY@1200 L.acidoph,Paracasei, B.lactis [Probiotic] 1 cap PO DAILY@1200 Multivitamins, Thera [Multivitamin (formulary)] 1 tab PO DAILY@1200 Tamsulosin HCl [Flomax] 0.4 mg PO AC-SUPPER Cholecalciferol [Vitamin D3] 2,000 unit PO DAILY Glimepiride [Amaryl] 0.5 mg PO AC-BRKFST #0 Cyanocobalamin (Vitamin B-12) [Vitamin B12] 5,000 mcg PO DAILY@1200 Febuxostat [Uloric] 40 mg PO DAILY@1200 Cranberry Fruit Extract [Cranberry] 500 mg PO DAILY Enzalutamide [Xtandi] 160 mg PO DAILY@1200 Budesonide [Pulmicort] 0.5 mg PO RT-BID Apixaban [Eliquis] 2.5 mg PO BID guaiFENesin [Mucinex] 600 mg PO Q12H PRN PRN Reason: Congestion Docusate [Colace] 100 mg PO BID Ubidecarenone [Co Q-10] 100 mg PO AC-SUPPER Potassium Chloride ER [K-Dur 20] 20 meq PO DAILY@1200 Ferrous Sulfate [Iron (65 MG Elemental)] 325 mg PO DAILY Fluticasone/Vilanterol [Breo Ellipta 100-25 Mcg Inhaler] 1 puff INHALATION RT -DAILY Lisinopril [Zestril] 10 mg PO DAILY Changed Furosemide [Lasix] 20 mg PO DAILY #0 Discontinued Metolazone [Zaroxolyn] 2.5 mg PO SUTUTH Furosemide [Lasix] 40 mg PO DAILY@0800 Spironolactone [Aldactone] 12.5 mg PO DAILY Discharge Medication List Albuterol Nebulized [Ventolin Nebulized] 2.5 mg INHALATION RT-QID PRN 11/12/15 [ History] Atorvastatin Calcium [Lipitor] 20 mg PO AC-SUPPER 11/12/15 [History] Calcium/Magnesium/Zinc [Hufcbgi-Cyqtutlky-Eozf Tablet] 1 tab PO DAILY@1200 11/11 [History] Carvedilol [Coreg] 3.125 mg PO BID 11/12/15 [History] Colchicine [Colcrys] 0.6 mg PO DAILY@1200 PRN 11/12/15 [History] Isosorbide Mononitrate ER [Imdur] 60 mg PO AC-SUPPER 11/12/15 [History] Krill Oil 500 mg PO DAILY@1200 11/12/15 [History] L.acidoph,Paracasei, B.lactis [Probiotic] 1 cap PO DAILY@1200 11/12/15 [History] Multivitamins, Thera [Multivitamin (formulary)] 1 tab PO DAILY@1200 11/12/15 [ History] Tamsulosin HCl [Flomax] 0.4 mg PO AC-SUPPER 11/12/15 [History] Cholecalciferol [Vitamin D3] 2,000 unit PO DAILY 04/07/16 [History] Glimepiride [Amaryl] 0.5 mg PO AC-BRKFST #0 04/15/16 [Rx] Cranberry Fruit Extract [Cranberry] 500 mg PO DAILY 04/17/17 [History] Cyanocobalamin (Vitamin B-12) [Vitamin B12] 5,000 mcg PO DAILY@1200 04/17/17 [ History] Febuxostat [Uloric] 40 mg PO DAILY@1200 04/17/17 [History] Apixaban [Eliquis] 2.5 mg PO BID 10/03/17 [History] Budesonide [Pulmicort] 0.5 mg PO RT-BID 10/03/17 [History] Enzalutamide [Xtandi] 160 mg PO DAILY@1200 10/03/17 [History] Docusate [Colace] 100 mg PO BID 11/07/17 [History] Potassium Chloride ER [K-Dur 20] 20 meq PO DAILY@1200 11/07/17 [History] Ubidecarenone [Co Q-10] 100 mg PO AC-SUPPER 11/07/17 [History] guaiFENesin [Mucinex] 600 mg PO Q12H PRN 11/07/17 [History] Ferrous Sulfate [Iron (65 MG Elemental)] 325 mg PO DAILY 03/18/18 [History] Fluticasone/Vilanterol [Breo Ellipta 100-25 Mcg Inhaler] 1 puff INHALATION RT- DAILY 03/18/18 [History] Lisinopril [Zestril] 10 mg PO DAILY 03/18/18 [History] Furosemide [Lasix] 20 mg PO DAILY #0 03/20/18 [Rx] Follow up Appointment(s)/Referral(s): Kandy Patrick MD [STAFF PHYSICIAN] - 03/28/18 10:30 am ( with Dr. Patrick's [employer]) Loi Mercer MD [Primary Care Provider] - 03/26/18 11:30 am (Sunday with [employer]) Ambulatory/Diagnostic Orders: Basic Metabolic Panel [LAB.AMB] Location: None Selected Complete Blood Count w/diff [LAB.AMB] Location: None Selected Discharge Disposition: HOME WITH HOME HEALTH SERVICES
== END 2018-03-20 15:26 | disposition home health service (06) ==
LOC: EC 14:39 → 3SCARD 16:53
PROVIDERS: ADMIT Family Medicine; ATTEND Family Medicine
DX: I95.9 Hypotension, unspecified (principal); R77.8 Other specified abnormalities of plasma proteins; I13.0 Hypertensive heart and chronic kidney disease with heart failure and stage 1 through stage 4 chronic kidney disease, or unspecified chronic kidney disease; I50.32 Chronic diastolic (congestive) heart failure; N18.3 Chronic kidney disease, stage 3 (moderate); E11.22 Type 2 diabetes mellitus with diabetic chronic kidney disease; I48.2 Chronic atrial fibrillation; E78.5 Hyperlipidemia, unspecified; N17.9 Acute kidney failure, unspecified; I25.810 Atherosclerosis of coronary artery bypass graft(s) without angina pectoris; G47.33 Obstructive sleep apnea (adult) (pediatric); C61 Malignant neoplasm of prostate; E86.0 Dehydration; K21.9 Gastro-esophageal reflux disease without esophagitis; F03.90 Unspecified dementia, unspecified severity, without behavioral disturbance, psychotic disturbance, mood disturbance, and anxiety; M79.7 Fibromyalgia; E66.9 Obesity, unspecified; N40.1 Benign prostatic hyperplasia with lower urinary tract symptoms; E86.9 Volume depletion, unspecified; M10.9 Gout, unspecified; R35.0 Frequency of micturition; Z95.5 Presence of coronary angioplasty implant and graft; Z68.33 Body mass index [BMI] 33.0-33.9, adult; Z95.1 Presence of aortocoronary bypass graft; Z95.0 Presence of cardiac pacemaker; Z99.89 Dependence on other enabling machines and devices; Z79.01 Long term (current) use of anticoagulants; Z79.899 Other long term (current) drug therapy; Z88.0 Allergy status to penicillin; Z79.84 Long term (current) use of oral hypoglycemic drugs; Z92.3 Personal history of irradiation; Z79.51 Long term (current) use of inhaled steroids
CPT/HCPCS: 96361; 96365; 96366 ×2; 99285; 36415; 94640 ×3; 94760; 93005; 97530; 97162; 97166; 84439; 84481; 83880; 80053; 80048 ×2; 82550 ×2; 82553 ×2; 83735 ×2; 84132; 84443; 84484 ×2; 85025; 85027; 85610; 85730; 81003; 83036; 71046; G0378 ×3; J3480

== ENCOUNTER → 2018-07-22 | Outpatient (CLI) | payer MEDICARE | LOC: LABWHC1 11:46 | PROVIDERS: ATTEND Radiology Radiation Oncology | DX: C61 Malignant neoplasm of prostate (principal); Z79.818 Long term (current) use of other agents affecting estrogen receptors and estrogen levels; Z92.3 Personal history of irradiation | CPT/HCPCS: 36415; 84153 ==

== ENCOUNTER → 2018-10-07 | Outpatient (CLI) | payer MEDICARE ==
--- NOTE | 2018-10-07 16:12 | XR ---
EXAMINATION TYPE: XR chest 2V DATE OF EXAM: 10/07/2018 COMPARISON: Chest x-ray March 18, 2018. CT chest November 15, 2017. HISTORY: Left-sided pleural effusion. Abnormal physical exam. TECHNIQUE: Frontal and lateral views of the chest are obtained. FINDINGS: There is redemonstration of cardiomegaly with single lead pacemaker. Overlying sternal wir es with left circumflex coronary stent are redemonstrated. There is recurrent small to moderate size left pleural effusion increased in size from recent x-ray. No mediastinal shift. Right lung is clear. Atherosclerotic thoracic aorta is present. Cholecystectomy clips are noted. The osseous structures are intact. IMPRESSION: Cardiomegaly with small to moderate size left pleural effusion increased in size from mo st recent x-ray.
== END | disposition home or self-care (01) ==
LOC: RADXRMAIN 15:45
PROVIDERS: ATTEND Internal Medicine Interventional Cardiology
DX: I51.7 Cardiomegaly (principal); J90 Pleural effusion, not elsewhere classified
CPT/HCPCS: 71046